=== PATIENT | male | born 1945 | race Caucasian/White ===

== ENCOUNTER 2016-05-25 13:57 | Inpatient (IN) | payer MEDICARE ==
[~2016-05-25] VITALS: Ht 170.2 cm; Wt 97.5 kg
[2016-05-25] VITALS (11 sets, daily range): BP systolic 101–133; BP diastolic 48–77; BMI 39.6
--- NOTE | ~2016-05-25 | HEMODYNAMI ---
PATIENT:OLIVIER HAYES MEDICAL RECORD: [id number] : 45 [id number] [id number] ADMISSION DATE: 05/25/16 Generatedon:05/29/201616:49 Patient name: OLIVIER HAYES Patient #: [id number] SSN: [id number] : 1945 Date of study: 05/29/2016 Page: Of Hemodynamic Procedure Report Patient Data Patient Demographics Procedure consent was obtained First Name: OLIVIER Gender: Male Last Name: FREDDY : 1945 [facility] Initial: ADILSON Age: 70 year(s) Patient #: [id number] Race: SSN: [id number] Additional ID: [id number] Contact details [address]: [address] [place] [address] [address] State: [place] City: [place] Zip code: [address] Admission Admission Data Admission Date: 05/25/2016 Admission Time: 13:57 Arrival Date: 05/29/2016 Arrival Time: 13:57 Admit Source: Other Insurance Payor: Medicare Room #: D.2308 Lab Results Lab Result Date: 05/29/2016 Lab Result Time: 0:00 Biochemistry Name Units Result Min Max BUN mg/dl 23 --(----)-* 7 18 Creatinine mg/dl 1.3 --(---*)-- 0.6 1.3 CBC Name Units Result Min Max Hemoglobin g/dl 11.9 *-(----)-- 13.5 17.5 Procedure Procedure Types Cath Procedure Diagnostic Procedure LHC LHC w/Coronaries w/Grafts PCI Procedure Coronary Stent Initial Procedure Description Procedure Date Procedure Date: 05/29/2016 Procedure Start Time: 15:47 Procedure End Time: 16:42 Procedure Staff Name Function Vishal Wilson MD Performing Physician Jodi Monson RT Scrub Shona Jeffrey RN Nurse Natty Neil RT Monitor Procedure Data Cath Procedure Fluoroscopy Diagnostic fluoroscopy Total fluoroscopy Time: time: 15.4 min 15.4 min Diagnostic fluoroscopy Total fluoroscopy dose: dose: 2380 mGy 2380 mGy Contrast Material Contrast Material Type Amount (ml) Isovue 300 220 Entry Location Entry Primary Successful Side Size Upsize Upsize Entry Closure Succes sful Closure Location (Fr) 1 (Fr) 2 (Fr) Remarks Device Remarks Radial Right 6 Fr artery Short Femoral Left 6 Fr Vascade artery Short Closure System Estimated blood loss: 10 ml Diagnostic catheters Device Type Used For End Catheter Placement Terumo 5Fr Warren 110cm Procedure catheter Cordis Infinity 5Fr AR Procedure MOD Catheter Cordis 5Fr Pigtail Abdominal Catheter (MP) aortogram with runoff Cordis Aqua 5Fr Guthrie Procedure 125cm catheter Cordis Infinity 5Fr AR Procedure MOD Catheter Cordis 5Fr 3DRC Catheter Procedure (MP) Procedure Complications No complications Procedure Medications Medication Administration Route Dosage Oxygen NC 2 l/min Lidocaine 2% added to field 20 Heparin Flush Bag added to field 2 bags (1000units/500ml NS) Versed I.V. 1 mg Fentanyl I.V. 50 mcg Fentanyl I.V. 50 mcg Radial Cocktail added to field 1 syringe (Verapomil 2mg/Nitro 400mcg/Heparin 1500units) Radial Cocktail I.A. 1 syringe (Verapomil 2mg/Nitro 400mcg/Heparin 1500units) Fentanyl I.V. 25 mcg Heparin Bolus I.V. 5000 units Cardene I.C. 300 mcg Integrilin (Bolus I.V. 10.2 ml 2mg/ml) Lasix I.V. 40 mg Hemodynamics Rest HGB: 11.9 (g/dl) Heart Rate: 93 (bpm) Pressure Samples Time Site Value (mmHg) Purpose Heart Use Rate(bpm) 16:12 LV 71/22,29 Snapshot 101 Snapshots Pre Cath Intra NCS Post Cath Vital Signs Time Heart Resp SPO2 NIBP (mmHg) Rhythm Pain Sedation Rate (ipm) (%) Status Level (bpm) 15:37:31 110 19 94 145/79(96) NSR w/ ST 0 (11) 10(A) Elevation , No pain 15:42:30 107 13 95 Measuring NSR w/ ST 0 (11) 10(A) Elevation , No pain 15:43:52 105 15 93 121/70(98) NSR w/ ST 0 (11) 10(A) Elevation , No pain 15:48:51 98 14 95 Measuring NSR w/ ST 0 (11) 10(A) Elevation , No pain 15:49:11 101 33 94 138/69(107) NSR w/ ST 0 (11) 10(A) Elevation , No pain 15:54:11 108 32 94 Measuring NSR w/ ST 0 (11) 10(A) Elevation , No pain 15:54:25 105 29 94 125/77(108) NSR w/ ST 0 (11) 10(A) Elevation , No pain 15:58:43 113 33 94 129/66(87) NSR w/ ST 0 (11) 10(A) Elevation , No pain 16:03:42 107 19 94 Measuring NSR w/ ST 0 (11) 10(A) Elevation , No pain 16:03:54 106 29 94 120/65(82) NSR w/ ST 0 (11) 10(A) Elevation , No pain 16:08:06 114 25 94 126/74(104) NSR w/ ST 0 (11) 10(A) Elevation , No pain 16:12:28 103 28 94 125/50(88) NSR w/ ST 0 (11) 10(A) Elevation , No pain 16:16:36 99 28 93 120/70(97) NSR w/ ST 0 (11) 10(A) Elevation , No pain 16:20:54 100 28 94 134/65(92) NSR w/ ST 0 (11) 10(A) Elevation , No pain 16:25:17 112 25 93 103/67(94) NSR w/ ST 0 (11) 10(A) Elevation , No pain 16:29:26 101 17 93 117/70(86) NSR w/ ST 0 (11) 10(A) Elevation , No pain 16:33:45 105 24 94 129/65(97) NSR w/ ST 0 (11) 10(A) Elevation , No pain 16:37:59 98 18 93 142/81(107) NSR w/ ST 0 (11) 10(A) Elevation , No pain 16:43:57 92 26 93 Disturbed NSR w/ ST 0 (11) 10(A) Elevation , No pain Medications Time Medication Route Dose Verified Delivered Reason Note s Effectiveness by by 15:40:06 Oxygen NC 2 l/min Vishal Shona Per physician Steve Jeffrey RN 15:40:34 Lidocaine 2% added 20ml Vishal Shona used for to vial Steve Jeffrey RN procedure field 15:40:48 Heparin Flush added 2 bags Vishal Shona used for Bag to Steve Jeffrey RN procedure (1000units/500ml field NS) 15:47:43 Versed I.V. 1 mg Vishal Shona for sedation Steve Jeffrey RN 15:47:53 Fentanyl I.V. 50 mcg Vishal Shona for sedation Steve Jeffrey RN 15:50:14 Fentanyl I.V. 50 mcg Vishal Shona for sedation Steve Jeffrey RN 16:05:56 Radial Cocktail added 1 Vishal Vishal used for (Verapomil to syringe Steve Wilson MD procedure 2mg/Nitro field 400mcg/Heparin 1500units) 16:07:41 Radial Cocktail I.A. 1 Vishal Vishal for (Verapomil syringe Steve Wilson MD vasodilation 2mg/Nitro 400mcg/Heparin 1500units) 16:16:40 Fentanyl I.V. 25 mcg Vishal Shona for sedation Steve Jeffrey RN 16:23:29 Heparin Bolus I.V. 5000 Vishal Shona for dose units Steve Jeffrey RN anticoagulation verified wt dr wilson 16:31:06 Cardene I.C. 300 mcg Vishal Vishal for Steve Wilson MD vasodilation 16:31:17 Integrilin I.V. 10.2 ml Vishal Shona for (Bolus 2mg/ml) Steve Jeffrey RN antiplatelet therapy 16:40:24 Lasix I.V. 40 mg Vishal Shona Per physician MARIAAP Steve Jeffrey RN Procedure Log Time Note 15:15:00 Jodi Monson RT(R) sent for patient. Start room use. 15::34 Informed consent obtained and on chart 15::34 Diagnostic Cath Status : Elective 15:24:07 Time tracking: Regular hours 15:24:11 Plan of Care:Hemodynamics will remain stable., Cardiac rhythm will remain stable., Comfort level will be maintained., Respiratory function will remain adequate., Patient/ family verbilizes understanding of procedure., Procedure tolerated without complication., Recovers from procedure without complications.. 15:24:33 Admit Source: Other 15:25:01 Arrival Date: 05/29/2016 1:57:00 PM 15:25:24 Insurance Payor : Medicare 15:26:33 Patient received from ICU to CCL 1 Alert and oriented. Tansferred to table in Supine position. 15:36:11 Warm blankets applied, and lyndsey hugger turned on for patient comfort. 15:36:12 Correct patient and procedure confirmed by team. 15:36:14 ECG and BP/O2 sat monitors applied to patient. 15:36:16 Vital chart was started 15:36:30 Baseline sample Acquired. 15:36:37 Baseline sample Acquired. 15:36:58 Rhythm: w/ ST elevation 15:37:02 Full Disclosure recording started 15:37:17 H&P Date Dictated: 05/29/2016 Within 30 days and on chart.. 15:37:22 Patient NPO since Midnight. 15:37:39 Snore? Yes 15:37:53 Airway obstruction? Yes COPD 15:37:58 Dentures? No ? 15:38:18 Patient pain scale 4/10 ?. 15:38:28 IV patent on arrival in left forearm with 0.9% NaCl at O. 15:39:29 Lab Result : BUN 23 mg/dl 15:39:29 Lab Result : Hemoglobin 11.9 g/dl 15:39:29 Lab Result : Creatinine 1.3 mg/dl 15:39:41 Lab results completed and on chart. 15:39:46 Right groin area was prepped with chlora-prep and draped in sterile fashion 15:39:48 Alarms reviewed by R. N. 15:39:49 Sharps counted by scrub and verified by R.N. 15:39:52 Physician paged 15:40:06 Oxygen 2 l/min NC was given by Shona Jeffrey RN; Per physician; 15:40:34 Lidocaine 2% 20ml vial added to field was given by Shona Jeffrey RN; used for procedure; 15:40:48 Heparin Flush Bag (1000units/500ml NS) 2 bags added to field was given by Shona Jeffrey RN; used for procedure; 15:41:55 Quick Combo opened to sterile field. 15:42:06 Use device set Femoral Dx 15:42:08 Acist Syringe opened to sterile field. 15:42:08 Bag Decanter opened to sterile field. 15:42:08 Cardinal Cath Pack opened to sterile field. 15:42:09 Terumo 5Fr [place] Sheath opened to sterile field. 15:42:09 St Donte 260cm J .035 wire opened to sterile field. 15:42:14 Acist Hand Control opened to sterile field. 15:42:15 Acist Manifold opened to sterile field. 15:42:15 Cordis Infinity 5Fr Multipack catheter opened to sterile field. 15:42:17 Tegaderm 4 x 4 opened to sterile field. 15:44:55 Baseline sample Acquired. 15:45:04 Baseline sample Acquired. 15:45:11 Baseline sample Acquired. 15:45:15 Baseline sample Acquired. 15:46:30 Zero performed for pressure channel P1 15:46:35 Zero performed for pressure channel P1 15:46:42 Zero performed for pressure channel P1 15:47:09 Physician arrived 15:47:10 --------ALL STOP TIME OUT------ 15:47:14 Final Timeout: patient, procedure, and site verified with staff and physician. All members of the team are in agreement. 15:47:16 Right groin site verified by team. 15:47:19 Physical assessment completed. ASA score P 2 - A patient with mild systemic disease as per Vishal Wilson MD. 15:47:23 Sedation plan: IV Moderate Sedation Versed, Fentanyl 15:47:29 Procedure started. 15:47:33 Local anesthetic to right femoral artery with Lidocaine 2% by Vishal Wilson MD.INITIAL ACCESS ONLY 15:47:43 Versed 1 mg I.V. was given by Shona Jeffrey RN; for sedation; 15:47:53 Fentanyl 50 mcg I.V. was given by Shona Jeffrey RN; for sedation; 15:50:14 Fentanyl 50 mcg I.V. was given by Shona Jeffrey RN; for sedation; 15:51:04 Left groin area was prepped with chlora-prep and draped in sterile fashion 15:51:14 Local anesthetic to left femerol artery with Lidocaine 2% by Vishal Wilson MD.ADDITIONAL ACCESS 15:56:46 right artery is a cross over graft 16:00:05 Is patient on blood thinner?Yes 16:00:09 ACC The patient was administered the following blood thiners within the last 24 hours: ACCPlavix 16:02:29 unable to access through iliiacs, going radial 16:03:17 Right Radial area was prepped with chlora-prep and draped in sterile fashion 16:05:03 Use device set Radial Dx 16:05:11 Terumo 6Fr Slender Glidesheath opened to sterile field. 16:05:36 Local anesthetic to right radial artery with Lidocaine 2% by Vishal Wilson MD.ADDITIONAL ACCESS 16:05:56 Radial Cocktail (Verapomil 2mg/Nitro 400mcg/Heparin 1500units) 1 syringe added to field was given by Vishal Wilson MD; used for procedure; 16:07:41 Radial Cocktail (Verapomil 2mg/Nitro 400mcg/Heparin 1500units) 1 syringe I.A. was given by Vishal Wilson MD; for vasodilation; 16:07:42 A 6 Fr Short sheath was inserted into the Right Radial artery 16:10:35 A Terumo 5Fr Warren 110cm catheter was advanced over the wire and used for Procedure. 16:12:20 LV gram done using TURNER 16:12:26 EF : 20 % 16:12:55 LCA angiography performed. 16:14:32 RCA angiography performed. 16:15:18 A Cordis Infinity 5Fr AR MOD Catheter was advanced over the wire and used for Procedure. 16:16:40 Fentanyl 25 mcg I.V. was given by Shona Jeffrey RN; for sedation; 16:17:00 Catheter removed. 16:18:11 Use device set Multipack Set 16:19:22 A Cordis 5Fr Pigtail Catheter (MP) was advanced over the wire and used for Abdominal aortogram with runoff. 16:21:31 A Cordis Aqua 5Fr Guthrie 125cm catheter was advanced over the wire and used for Procedure. 16:23:01 A 6 Fr Short sheath was inserted into the Left Femoral artery 16:23:14 Terumo 6Fr [place] Sheath opened to sterile field. 16:23:29 Heparin Bolus 5000 units I.V. was given by Shona Jeffrey RN; for anticoagulation; dose verified wt dr wilson 16:24:04 A Cordis Infinity 5Fr AR MOD Catheter was advanced over the wire and used for Procedure. 16:25:24 SVG to RCA occluded. 16:27:44 Catheter removed. 16:29:08 A Cordis 5Fr 3DRC Catheter (MP) was advanced over the wire and used for Procedure. 16:29:16 SVG to LAD occluded. 16:29:19 Catheter removed. 16:29:27 Medtronic Launcher 6Fr AR 2.0 SH guide catheter opened to sterile field. 16:29:31 Futura Acorp Whisper J 300cm 0.014 guide wire opened to sterile field. 16:29:39 Moda Operandi BasixCompak Inflation Kit opened to sterile field. 16:30:08 ACC PCI Site: pRCA has 80-90% stenosis. 16:30:16 6 Fr AR2 guide catheter was inserted over the wire 16:30:21 whisper wire advanced. 16:30:23 Wire advanced across lesion. 16:31:06 Cardene 300 mcg I.C. was given by Vishal Wilson MD; for vasodilation; 16:31:17 Integrilin (Bolus 2mg/ml) 10.2 ml I.V. was given by Shona Jeffrey RN; for antiplatelet therapy; 16:32:46 Inflation Number: 1 A Medtronic Resolute 3.5 X 15 stent was prepped and advanced across the Prox RCA. The stent was deployed at 21 JACQUELINE for 0:10 (min:sec). 16:33:17 Inflation number: 1 The stent balloon was then re-inflated across the Mid RCA to 17 JACQUELINE for 0:10 (min:sec). 16:33:34 Cordis Infinity 5Fr Multipack catheter opened to sterile field. 16:33:54 St Donte Femstop Arch Gold opened to sterile field. 16:33:55 Vascade 6/7 Fr Closure Device opened to sterile field. 16:35:27 Sheath removed intact; hemostasis achieved with Vascade Closure System to the Left Femoral artery. 16:35:51 Terumo TR Band Standard opened to sterile field. 16:36:02 Procedure ended.(Physican Out) 16:36:35 Fluoroscopy time 15.40 minutes. 16:36:44 Fluoroscopy dose: 2380 mGy 16:36:44 Flurop Dose total: 2380 16:36:59 Contrast amount:Isovue 300 220ml. 16:37:03 Sharps counted by scrub and verified by R.N. 16:37:11 TR band inflated with 10cc of air. 16:37:12 Insertion/operative site no bleeding no hematoma. 16:37:24 Post-op/insertion site Left Femoral artery dressed using a 4 x 4 and Tegaderm. 16:37:34 Post left femerol artery:stable 16:37:42 Femstop placed over the left femerol artery at 130 mmHg. Hemostasis achieved. 16:37:44 Post Procedure Pulses reassessed and unchanged 16:38:10 Post-procedure physical assessment completed. ASA score P 4 - A patient with severe systemic disease that is a constant threat to life as per Vishal Wilson MD. 16:38:15 Post procedure rhythm: unchanged. 16:38:19 Estimated blood loss: 10 ml 16:38:27 Patient needs reinforcement of post procedure teaching. 16:38:58 Procedure type changed to Cath procedure, Diagnostic procedure, LHC, LHC w/Coronaries w/Grafts, PCI procedure, Coronary Stent Initial 16:39:01 Procedure and supply charges have been captured, reviewed, submitted and are correct. 16:40:24 Lasix 40 mg I.V. was given by Shona Jeffrey RN; Per physician; KALPANA 16:42:08 Procedure Complication : No complications 16:42:14 Vital chart was stopped 16:42:16 See physician's report for complete and final results. 16:42:20 Report given to ICU. 16:42:24 Patient transfered to ICU with Bed. 16:42:27 Procedure ended. 16:42:27 Full Disclosure recording stopped 16:48:30 End room use (Document Last) Intervention Summary Intervention Notes Time ActionType Lesion and Equipment Action# Pressure Duration Attributes Used 16:32:46 Place stent Prox RCA Medtronic 1 21 00:10 Resolute 3.5 X 15 stent 16:33:17 Reinflate Mid RCA Medtronic 1 17 00:10 stent Resolute balloon 3.5 X 15 stent Device Usage Item Name Manufacture Quantity Catalog Hospital Part Current Minima l Lot# / Number Charge Number Stock Stock Serial# Code Quick Wholelife Companieso Zentric 1 08603-259610 282935 907941 192925 5 Acist Acist 2 27446 804549 651980 784176 20 Syringe Medical Systems Inc Bag Microtek 2 2002S 623368 48378 774404 5 Decanter Medical Inc. Cardinal Cardinal [address] 115864 92611 996598 5 Cath Pack Health Terumo 5Fr Terumo 1 TWO470 963544 734342 243885 [address] Don[address] St Donte 2 668189 336809 459032 962298 30 260cm J .035 wire Acist Hand Acist 2 88399 007170 491454 432194 5 Control Medical Systems Inc Acist Acist 2 00494 778780 340014 494605 5 Manifold Medical Systems Inc Cordis Cardinal 2 [id number] 927158 88329 132329 30 Infinity Health 5Fr Multipack catheter Tegaderm 4 3M 1 1626W 315188 317916 089786 5 x 4 Cordis 5Fr Cardinal 1 905761 5 JL 4.0 Health Catheter (MP) Cordis 5Fr Cardinal 2 074489 5 Pigtail Health Catheter (MP) Cordis 5Fr Cardinal 2 732825 5 3DRC Health Catheter (MP) IV Hospira 1 30661-96 965989 22041 537380 5 Extension Set Terumo 6Fr Terumo 1 [id number] 118054 965652 914298 40 Slender Glidesheath Terumo 5Fr Terumo 1 40-3313 091253 773599 788288 5 Warren 110cm catheter Cordis Cardinal 1 [id number] 984078 179072 615781 15 Infinity Health 5Fr AR MOD Catheter Cordis Aqua Cardinal 1 [id number] 264032 556510 833015 5 5Fr Health Guthrie 125cm catheter Terumo 6Fr Terumo 1 [id number] 991170 039461 661892 40 [place] Sheath Medtronic Medtronic 1 [id number] 371781 41083 901113 1 Launcher 6Fr AR 2.0 SH guide catheter Muñoz Muñoz 1 [id number] 960449 924829 450270 5 Whisper J Vascular 300cm 0.014 guide wire Merit Merit 1 BX1371 670772 735877 775433 15 [facility] Medical Inflation Kit Medtronic Medtronic 1 [id number] 322418 245040 1 [id number] Resolute 3.[address] Donte 1 [id number] 612483 107221 332660 5 Femstop Arch Gold Vascade 10/07 Cardiva 1 [id number] 584510 775458 500669 5 Fr Closure Medical, Device Inc. Terumo TR Terumo 1 [id number] 525087 919647 945933 40 Band Standard Signature Audit [place] Stage Time Signature Unsigned Intra-Procedure 05/29/2016 Natty Neil 4:49:09 PM RT(R) Signatures Monitor : Natty Neil Signature : RT Date : Time : [address] [place] [address]
--- NOTE | 2016-05-25 13:10 | NUR ---
Received patient via EMS. Pt attempted to self transfer to bed but required alot of help from both EMS and myself. Pt situated in bed, connected to CM- sinus linda, BP stable. o2 saturation stable on room air. Pt c/o pain and loss of feeling in left foot and usp up leg. pt also c/o pain behind knee and thigh. Pedal pulses not found via dopplar. Popliteal pulse not found via dopplar.femoral pulses not found via dopplar. right pedal pulse found via dopplar. Paged to inform of patients arrival via his request. See shift assessment flowsheet for all findings.
--- NOTE | 2016-05-25 13:40 | NUR ---
through to see patient. Deonte able to locate a very weak whisper of a femoral pulse via dopplar. Pt spoke to pt and extensively and informed him that patient likely needs an above knee amputation. Pt and verbalize understanding. New orders received.
[~2016-05-25 13:57] MED LIST: ADVIL PM CAPLET1 TAB PO; ADVIL200 MG PO; BANOPHEN25 M1 PO; BOUDREAUXS113 GM TP; CORDARONE200 MG PO; EFFER-K 25 MEQ25 MEQ PO; LASIX40 MG PO; NITROSTAT0.3 MG SL; PLAVIX75 MG PO; PRAVACHOL40 MG PO; PRINIVIL10 MG PO; SALINE FLUSH10 ML IV; VANCOMYCIN H1 G/VIA1 IV; VANCOMYCIN1 GM/2501 IV; ZYLOPRIM300 MG PO
[2016-05-25 14:29] LABS: HEMATOCRIT 44.3 % (42.0-54.0); HEMOGLOBIN 14.3 g/dL (13.5-17.5); MCH 33.3 pg (26.0-34.0); MCHC 32.3 g/dL (31.0-37.0); MCV 103.3 fL (80.0-100.0); MEAN PLATELET VOLUME 11.5 fL (7.4-10.4); RBC 4.29 10x6/uL (4.20-6.10); WBC 9.3 10x3/uL (4.8-10.8)
[2016-05-25 14:53] LABS: CREATININE - SERUM 2.9 mg/dL (0.6-1.3)
--- NOTE | 2016-05-25 15:00 | NUR ---
Deonte called, he spoke with Jamaal and will not perform CT due to kidney function. Will reassess tomorrow morning. New orders recieved.
[2016-05-25 15:03] LABS: INR 1.1 (0.85-1.17); PROTIME 14.1 SECONDS (11.6-15.0)
--- NOTE | 2016-05-25 15:10 | NUR ---
through, informed her of consult. She will be by to see patient tomorrow as patient has had all things addressed so far. Call her if needed though.
--- NOTE | 2016-05-25 15:30 | NUR ---
through to see patient. POC discussed.
--- NOTE | 2016-05-25 16:40 | NUR ---
discussed home medication list with me. He reordered home meds.
--- NOTE | 2016-05-25 17:06 | NUR ---
Informed of consult.
--- NOTE | 2016-05-25 17:30 | NUR ---
Patient history completed with patients .
--- NOTE | 2016-05-25 17:34 | NUR ---
here to see patient. Currently discussing POC and patient history.
--- NOTE | 2016-05-25 18:25 | NUR ---
Paged to inform of consult. He has not returned page, will pass onto car shifter.
--- NOTE | 2016-05-25 18:44 | NUR ---
Pts o2 saturation in the 80s, placed on 2 L NC and informed Monet with RT. Pt repositioned as well.
--- NOTE | 2016-05-25 19:30 | NUR ---
REPORT RECEIVED AND CARE ASSUMED. INITIAL SHIFT ASSESSMENT COMPLETED. SEE FLOWSHEET. PT AAOX4 SPEECH CLEAR. STATES HIS PAIN IS MANAGEABLE AND MUCH IMPROVED WITH THE SHIP CARPENTER. DEMONSTRATED SOME RELUNCTANCE IN USING THE SHIP CARPENTER STATING HE DIDNT WANT TO BE PERCEIVED A DRUG SEEKER. ENCOURAGED PT TO UTILIZE THE MEDICATION PROVIDED IT WAS APPROPRIATE FOR HIS CONDITION AND HE WAS NOT BEING JUDGED, DISCUSSED THE BENEFITS OF GAINING GOOD PAIN MANAGEMENT VS LETTING IT GET OUT OF CONTROL. PT VERBALIZED COMPREHENSION OF THIS TEACHING. PT NOTED TO BE ON O2 AT 2LN/C TOLERATING WELL. RIGHT HAND 20G PIV WITH HEPARIN AND NEXT PTT TO BE DONE AT 2200 WITH ORDERS TO FOLLOW HEPARIN PROTOCOL ON CHART. LEFT PIV 20 WITH NS AND DILAUDID SHIP CARPENTER INFUSING. ALL FLUIDS PER PUMP ALL LINES DATED AND LABELED. SWAB CAPS IN USE. IV SITES WITHOUT REDNESS, EDEMA OR TENDERNESS. RIGHT PIV RESECURED WITH TAPE. PT WITH NO PULSES IN LEFT FOOT OR POPLITEAL. DO HEAR FAINT WHOSH WHISPERY SOUND IN LEFT FEMORAL WITH DOPPLER. PT WITH VISIBLE NITROPASTE TO LEFT FOOT AND IT IS UNCOVERED AND OPEN TO AIR. TEMPERATURE DIFFERENCES IN LEGS NOTEABLE. LEFT FOOT MUCH COOLER THAN RIGHT WITH EQUAL WARMTH NOT FELT UNTIL IN LOWER 1/3 OF THIGH. THIS IS NOT A NEW FINDING PER REPORT RECEIVED AND PHYSICIANS ARE WELL AWARE OF PULSESNESS PER NOTES AND PT REPORT. PT IS BEING MONITORED PER STANDARD ICU PROTOCOL WITH ALL ALARMS SET AND VERIFIED. BED IN LOW POSITION CALL LIGHT IN REACH
--- NOTE | 2016-05-25 21:00 | NUR ---
HS MEDS GIVEN AFTER PT TEACHING DONE. PT FAIRLY WELL INFORMED ABOUT HIS HOME MEDS. NO SWALLOWING DIFFICULTY NOTED. HS SNACK PROVIDED OF HIS CHOICE OF MILD AND CRACKERS. PT ATE 100%
--- NOTE | 2016-05-25 21:10 | NUR ---
VISITORS AT BEDSIDE PT AAOX4 AND ABLE TO UPDATE FAMILY. FAMILY IS KNOWLEDGEABLE ABOUT PT'S CONDITION AND PROGNOSIS
--- NOTE | 2016-05-25 21:30 | NUR ---
CODE WORD ESTABLISHED AND PT SHARED WITH . GIVEN CONTACT INFORMATION FOR UNIT
--- NOTE | 2016-05-25 23:00 | NUR ---
SHIFT REASSESSMENT COMPLETED. NOTE DEFINITE AUDIBLE LEFT FEMORAL PULSE ALTHOUGH CONTINUES TO BE FAINT. NO OTHER CHANGES NOTED. PT HAS BEEN SLEEPING OFF AND ON. STANDING AT BEDSIDE TO VOID AND WITH LESS DIFFICULTY WITH URINARY HESITANCY THAN UPON INITAL SHIFT ASSESSMENT.
[2016-05-26] VITALS (23 sets, daily range): BP systolic 100–126; BP diastolic 39–73; Ht 170.2 cm; Wt 97.5 kg
--- NOTE | 2016-05-26 | NUR ---
PT NOW NPO WITH SIGN PLACED AT DOORWAY STATING THUS. PT AWARE OF NPO STATUS IN ANTICIPATION OF POSSIBLE SURGERY TOMORROW. CONTINUE TO PROVIDE SUPPORT
--- NOTE | 2016-05-26 01:00 | NUR ---
PT SLEEPING WELL TONIGHT. RESP REG AND NONLABORED
--- NOTE | 2016-05-26 03:00 | NUR ---
SHIFT REASSESSMENT COMPLETED. LEFT FEMORAL PULSES MORE EASILY DOPPLERED AND MORE AUDIBLE WITH DOPPLER. LEFT POPLITEAL AND LEFT FOOT REMAIN PULSELESS. PT STATES HE HAS GOOD PAIN CONTROL AND HAS NO REQUESTS
--- NOTE | 2016-05-26 05:30 | NUR ---
LAB AT BEDSIDE FOR TIMED PTT DRAW AND AM LAB. DRAWN FROM LEFT ARM. (RIGHT HAND IS THE HEPARIN INFUSION SITE)
[2016-05-26 06:27] LABS: ALBUMIN 3.6 g/dL (3.4-5.0); ALKALINE PHOSPHATASE 72 U/L (46-116); ALT (SGPT) 32 U/L (10-68); BILIRUBIN - TOTAL 0.31 mg/dL (0.2-1.3); CALC OSMOLALITY 298 mosm/kg (275-300); CALCIUM 8.8 mg/dL (8.5-10.1); CARBON DIOXIDE 30.3 mmol/L (21.0-32.0); CHLORIDE - SERUM 104 mmol/L (98-107); CKMB 29.9 U/L (0.0-3.6); CREATININE - SERUM 2.5 mg/dL (0.6-1.3); GLUCOSE 101 mg/dL (74-106); LDH 181 U/L (85-227); POTASSIUM - SERUM 4.2 mmol/L (3.5-5.1); PROTEIN - SERUM 7.2 g/dL (6.4-8.2); SODIUM 144 mmol/L (136-145); UREA NITROGEN 45 mg/dL (7-18); eGFR NON AFRICAN AMERICAN 27 mL/min (90-120)
--- NOTE | 2016-05-26 06:30 | NUR ---
PT GIVEN 3,000 UNIT BOLUS AND INCREASE OF HEPARIN TO 13 PER PROTOCOL. PT UP TO BSC FOR BM. TRANSFERED WITH ASSIST OF 2. CONTINENT OF STOOL. COMPLETE BATH GIVEN WITH LINENS CHANGED. CHLORHEXIDINE WIPES USED. NOTE A SMALL AMOUNT OF DRIED BLOOD TO LEFT GROIN. CLOSE INSPECTION SHOWS A POOR HEALING SITE OF PREVIOUS INSERTION SITE PT STATES WAS OVER A YEAR AGO AND REQUIRED A WOUND VAC. PT STATES IT BLEEDS AND OOZES FREQENTLY. AREA CLEANED WITH SOAP AND WATER AND PATTED DRY.
--- NOTE | 2016-05-26 09:00 | NUR ---
DR RIVERA HERE ASSESSING LEG.
--- NOTE | 2016-05-26 09:30 | NUR ---
DR CID HERE. DR WALKER CONSULTED PER DR RIVERA/PALAK TO AMPUTATE LEFT LEG.
--- NOTE | 2016-05-26 11:00 | NUR ---
DR WALKER HERE TALKING TO FAMILY.
--- NOTE | 2016-05-26 11:10 | NUR ---
Is the patient Alert and Oriented? Yes 0 * How many steps to enter\exit or inside your home? RAMP 0 * PCP DR. BEAR IN [place] 0 * Pharmacy [facility] IN [place] 0 * Preadmission Environment Home with Family 0 * ADLs Independent 0 * Equipment Walker Wheelchair 0 * Other Equipment PATIENT STATES HE HAS A MANUAL W/C AND A POWER CHAIR. HE STATES HE HAS A LIFT FOR HIS CHAIR ON HIS TRUCK. 0 * List name and contact numbers for known caregivers / representatives who currently or will assist patient after discharge: SPOUSE: PIYUSH (C) [phone] (H) [phone] 0 * Community resources currently utilized None 0 * Additional services required to return to the preadmission environment? No 0 * Can the patient safely return to the preadmission environment? Yes 0 * Has this patient been hospitalized within the prior 30 days at any hospital? No PATIENT IS AWAKE AND ALERT. HE STATES HE LIVES AT HOME WITH HIS SPOUSE, PIYUSH. SHE WILL BE AVAILABLE TO DRIVE HIM HOME AT DISCHARGE. PATIENT STATES HIS PCP IS DR. BEAR IN [place]. HE GETS HIS MEDICATION FROM [facility] IN [place]. HE HAS A WALKER, CANE, MANUAL WHEELCHAIR, AND A POWER WHEELCHAIR. PATIENT STATES HE ALSO HAS A WHEELCHAIR LIFT ON HIS TRUCK. PATIENT HAD HOME HEALTH IN THE PAST WITH [facility] 2 YRS AGO. PTIENT STATES THERE IS A RAMP TO ENTER HIS HOME. PATIENT DENIES ANY DISCHARGE NEEDS AT THIS TIME.
--- NOTE | 2016-05-26 13:20 | NUR ---
TO OR VIA BED. CONSENTS SIGNED AND ON CHART. AT BEDSIDE.
[2016-05-26 14:27] LABS: ERYTHROCYTE SEDIMENTATION RATE 25 mm/hr (0-20)
--- NOTE | 2016-05-26 15:30 | NUR ---
BACK FROM OR. LEFT LEG AMPUTATED. SLEEPING NO DISTRESS NOTED.
--- NOTE | 2016-05-26 17:00 | NUR ---
SLEEPING NO DISTRESS NOTED SR UP X 3. FAMILY AT BEDSIDE.
--- NOTE | 2016-05-26 19:30 | NUR ---
REPORT RECEIVED CARE ASSUMED. INITIAL SHIFT ASSESSMENT COMPLETED. PT WITH SLIGHT CONFUSION NOTED BUT ABLE TO REDIRECT AND REORIENTATE WITHOUT DIFFICULTY. DENIES PAIN AT THIS TIME. PT WITH 2LO2 PER N/C PIV TO RIGHT AND LEFT HAND WITH RIGHT HAND S/L FLUSHED WELL. LEFT HAND WITH IVF PER FLOWSHEET. BOTH 20G. LEFT LEG WITH AKA WITH ORIGINAL SURGICAL COMPRESSION DRESSING IN PLACE. NO DRAINAGE FROM THIS SITE. PT IS BEING MONITORED PER STANDARD ICU PROTOCOL WITH ALL ALARMS SET. BED IN LOW POSITION. PT IS TOLERATING ICE CHIPS WITH NO NAUSEA.
--- NOTE | 2016-05-26 20:00 | NUR ---
PT VOIDED 125 CC OF CLEAR YELLOW URINE. U/S AT BEDSIDE TO DO U/S OF KIDNEYS, REPORTS 762 CC OF URINE STILL IN BLADDER.
--- NOTE | 2016-05-26 20:15 | NUR ---
18F YADAV INSERTED WITHOUT DIFFICULTY WITH STERILE TECHNIQUE. IMMEDIATE RETURN OF URINE NOTED. CLAMPED AFTER 300 FOR 15 MINUTES. TOTAL OF 1000 CC OF URINE NOTED WITH INSERTION. SPECIMEN SENT TO LAB FOR ANALYSIS. STATLOCK USED AND YADAV DRAINAGE BAG AND CHART DATED AND LABELED.
--- NOTE | 2016-05-26 21:00 | NUR ---
AND VISITORS AT BEDSIDE. PT ABLE TO VISIT WITH COHERENCE. ONLY MILD CONFUSION NOTED. UPDATE AND QUESTIONS ANSWERED BY BOTH STAFF AND PT.
[2016-05-26 21:05] LABS: CREATININE - URINE 64.7 mg/dL (30-125); PRO/CRE RATIO URINE 0.3 mg/g; PROTEIN - URINE 18.9 mg/dL (0.0-11.9)
--- NOTE | 2016-05-26 21:30 | NUR ---
HS MEDS GIVEN WITHOUT ANY SWALLOWING DIFFICULTY NOTED. PT ABLE TO TOLERATE SMALL SIPS OF WATER. DENIES NAUSEA.
--- NOTE | 2016-05-26 23:00 | NUR ---
SHIFT REASSESSMENT COMPLETED. NO SIGNIFICANT CHANGES
[2016-05-27] VITALS (12 sets, daily range): BP systolic 102–142; BP diastolic 39–65
--- NOTE | 2016-05-27 01:00 | NUR ---
PT SLEEPING INTERMITTENTLY. RESTLESS DENIES PAIN. TOELRATING ICE CHIPS AND CLEAR LIQUIDS WELL DENIES NAUSEA
--- NOTE | 2016-05-27 03:00 | NUR ---
SHIFT REASSESSMENT COMPLETED. NO SIGN CHANGE. PT HAS SLEPT THE PAST 2 HOURS RES REG AND NONLABORED
--- NOTE | 2016-05-27 04:00 | NUR ---
PT HAS DISLODGED HIS STUMP DRESSING. COLBY NOTED TO BE INTACT. CLEANED WITH IODINE SWAAB STICKS AND XEROFORN PETROLATUM DRESSING X 3 WITH ABD PADS X 2 SECURED WITH NETTING AND GOGO WRAP REAPPLIED. PT TOLERATED WELL.
--- NOTE | 2016-05-27 05:52 | NUR ---
CALL RECEIVED FROM , PASSWORD VERIFIED. UPDATE GIVEN AND QUESTIONS ANSWERED
--- NOTE | 2016-05-27 06:18 | NUR ---
RIGHT HAND MORE EDEMATOUS. CONCERN ABOUT IV SITE. FLUSHES EASILY BUT NO BLOOD RETURN. NEW IV STARTED 22G TO LEFT HAND X 1 ATTEMPT. IV RELOCATED TO LEFT HAND.
--- NOTE | 2016-05-27 07:00 | NUR ---
ASSESSMENT PER FLOWSHEET. PT VOICES NO CO AT TIME. SR UP X 2. CALL LIGHT WITHIN REACH. L AKA NOTED DRSG CDI.
[2016-05-27 07:19] LABS: APPEARANCE CLEAR (CLEAR); BILIRUBIN NEGATIVE (NEGATIVE); COLOR YELLOW (YELLOW); GLUCOSE NEGATIVE (NEGATIVE); KETONE NEGATIVE (NEGATIVE); LEUKOCYTE ESTERASE NEGATIVE (NEGATIVE); NITRITE NEGATIVE (NEGATIVE); PROTEIN NEGATIVE (NEGATIVE); SPECIFIC GRAVITY 1.015 (1.005-1.020); UROBILINOGEN NORMAL (NORMAL)
--- NOTE | 2016-05-27 09:00 | NUR ---
FAMILY AT BEDSIDE. UPDATE GIVEN. OK TO TRANSFER TO FLOOR. AWAITING BED.
--- NOTE | 2016-05-27 09:13 | CN ---
PATIENT NAME:OLIVIER BARNES MEDICAL RECORD: [id number] : 45 LOCATION:[id number] ADMIT DATE: 05/25/16 ACCOUNT: [id number] CONSULTING PHYSICIAN: PAULINO ESCOBEDO MD REFERRING PHYSICIAN: CECILIA RIVERA MD DATE OF CONSULTATION: 05/25/2016 CONSULT REQUESTING PHYSICIAN: Dr. Cecilia Rivera. REASON FOR CONSULTATION: Preop evaluation, possible COPD. HISTORY OF PRESENT ILLNESS: Mr. Barnes is a 70-year-old gentleman who was taken to the [facility] with numbness and cold left lower extremity. The patient was transferred over here under the care of Dr. Rivera and Dr. Hinton for possible amputation and surgery in the morning. According to the patient, he has more than 50-year history of smoking more than 1 pack per day. There is no documented COPD. He is on oxygen. He is not using any inhalers. He does not hear himself wheezing. There is cough without any significant sputum production. REVIEW OF SYSTEMS: CONSTITUTIONAL: No fever and chill. HEENT: No sinus congestion. RESPIRATORY: As in history of present illness. CARDIOVASCULAR: No chest pain. GASTROINTESTINAL: Negative. GENITOURINARY: Negative. MUSCULOSKELETAL: He has a cold left lower extremity. Poor pulses. PAST MEDICAL HISTORY: 1. Coronary artery disease. 2. Gout. 3. Hypertension. 4. Severe peripheral vascular disease. 5. Chronic kidney disease. 6. Tobacco dependence syndrome. PAST SURGICAL HISTORY: 1. He has coronary artery bypass graft in the past. 2. He has AAA repair and fem-fem bypass by Dr. Hinton in the past. ALLERGIES: HE IS ALLERGIC TO BETA SHLOMO AND PENICILLIN. PRESENT MEDICATIONS: On [employer] is reviewed. PERSONAL AND SOCIAL HISTORY: The patient is . He lives with his . He is still smoking more than a pack a day. FAMILY HISTORY: Noncontributory. PHYSICAL EXAMINATION: GENERAL: Now, the patient is lying comfortably in bed. He is not in acute respiratory distress. VITAL SIGNS: The blood pressure is 125/77, pulse is 64, respirations 12, temperature 97.3, SpO2 97% on room air. CONSULT REPORT [id number] OLIVIER BARNES HEENT: Conjunctivae are pink. Sclerae nonicteric. NECK: Supple, no JVD. CHEST: The chest excursion is minimal on both sides. There is no wheeze, no rales. HEART: Rate and rhythm is regular, normal sound, no murmur. ABDOMEN: Soft. Bowel sounds present. No hepatosplenomegaly. RECTAL: Deferred. EXTREMITIES: There is poor peripheral pulses on probable left lower extremity, it is cold to touch. LABORATORY DATA: CBC: WBC 9.3, hemoglobin 14.3, hematocrit 44.3, the platelet count 135. Chemistry: Sodium is 148, BUN is 48, creatinine is 2.9. IMPRESSION: 1. Chronic obstructive pulmonary disease without exacerbation. 2. Tobacco dependence syndrome. 3. Severe peripheral arterial disease. 4. Coronary artery disease. 5. Hypertension. 6. History of gout. 7. Chronic kidney disease. 8. History of hyperlipidemia. RECOMMENDATION: 1. The patient was counseled to quit smoking. 2. I will check the ABG, start him on albuterol/ipratropium nebulizer. We will follow closely perioperatively with Dr. Rivera and Dr. Hinton. Dr. Rivera, once again thanks for involving me in the care of Mr. Barnes. TRANSINT:[id number] Voice Confirmation ID: [id number] DOCUMENT ID: [id number] PAULINO ESCOBEDO MD at 0913 CC: CECILIA RIVERA MD [id number] DICTATION DATE: 05/25/16 1745 JOINT SETTER: 05/25/162000 ADM IN [facility] [address] [id number]
[2016-05-27 10:09] LABS: ANION GAP 10.9 mmol/L (8-16); CALCIUM 8.6 mg/dL (8.5-10.1); CARBON DIOXIDE 26.8 mmol/L (21.0-32.0); CREATININE - SERUM 1.4 mg/dL (0.6-1.3); POTASSIUM - SERUM 4.7 mmol/L (3.5-5.1)
[2016-05-27 10:26] LABS: BASOPHILS 0.1 % (0.0-2.0); EOSINOPHILS 0 % (0-7); HEMOGLOBIN 11.6 g/dL (13.5-17.5); IMMATURE GRANULOCYTES 0.3 % (0-5); LYMPHOCYTES 5.4 % (15-50); MCH 32.6 pg (26.0-34.0); MCHC 30.5 g/dL (31.0-37.0); MEAN PLATELET VOLUME 11.2 fL (7.4-10.4); MONOCYTES 5.6 % (2-11); NEUTROPHILS 88.6 % (40-80); PLATELET COUNT 116 10x3/uL (130-400); RBC 3.56 10x6/uL (4.20-6.10); RDW 14.4 % (11.5-14.5); WBC 11.3 10x3/uL (4.8-10.8)
[2016-05-27 10:34] LABS: MCV 106.7 fL (80.0-100.0)
--- NOTE | 2016-05-27 12:00 | NUR ---
EATING LUNCH. VOICES NO CO AT TIME. FAMILY AT BEDSIDE. UPDATE GIVEN.
--- NOTE | 2016-05-27 14:00 | NUR ---
BATH GIVEN LINENS CHANGED. VOICES NO CO AT TIME. SR UP X 3. CALL LIGHT WITHIN REACH.
--- NOTE | 2016-05-27 16:01 | NUR ---
FAMILY AT BEDSIDE VISITING WITH PATIENT. VOICES NO CO AT TIME. PT MOVES SELF IN BED. PILLOW PLACED TO L SIDE.
--- NOTE | 2016-05-27 16:44 | NUR ---
Rehab Note- Prescreen order received. Attempted to varify patient's benefits, patient does not have [employer]. Investigated to find the patient has [employer], will have to have PreAuth prior to IRF stay. Needs OT & PT eval. Thank you for this referral! Daisha Zavala RN Clinical Liaison, Rehab [facility]/[place]
--- NOTE | 2016-05-27 19:00 | NUR ---
REPORT RECIEVED, INITIAL ASSESSMENT COMPLETE, PLEASE SEE FLOW SHEETS FOR DETAILS. BED LOW AND LOCKED, CALL LIGHT IN REACH. PT STATES PAIN IS PRESENT BUT TOLERABLE IN LEFT LEG. DENIES ANY NEEDS AT THIS TIME. ASKED FOR LIGHTS DOWN. VSS, WILL CONTINUE TO MONITOR.
--- NOTE | 2016-05-27 21:00 | NUR ---
SLEEPING, BED LOW AND LOCKED, CALL LIGHT IN REACH, BED ALARM ON. NO S&S OF DISTRESS NOTED. VSS, WILL CONTINUE TO MONITOR.
--- NOTE | 2016-05-27 23:00 | NUR ---
PT RESTING, NO S&S OF ACUTE DISTRESS NOTED. BED LOW AND LOCKED, CALL LIGHT IN REACH. DENIES PAIN/NEEDS AT THIS TIME. VSS, WILL CONTINUE TO MONITOR.
--- NOTE | 2016-05-27 23:52 | NUR ---
REPOSITIONED PT IN BED. SHOWING SOME FORGETFULNESS, ASKED WHY HIS LEFT FOOT WAS NOT THERE. REMINDED HIM THAT IT WAS AMPUTATED AND HE ACKNOWLEDGED THIS, STATING HE WAS SORRY. INFORMED HIM THERE WAS NOTHING TO BE SORRY FOR, THAT IT WAS STILL NEW TO HIM AND WOULD TAKE SOME GETTING USED TO. DENIES ANY PAIN/NEEDS AT THIS TIME. VSS, WILL CONTINUE TO MONITOR.
--- NOTE | 2016-05-28 00:23 | NUR ---
CALLED REPORT TO [facility]A ON MED SURG. WILL GATHER BELONGINGS AND TRANSPORT PT.
--- NOTE | 2016-05-28 00:52 | NUR ---
RECIEVED TO RM 2203 FROM ICU. AWAKE,ALERT ORIENTED. IV NS INFUISNG TO LEFT HAND WITHOUT EDEMA OR REDNESS NOTED.DILAUDID REVENUE CYCLE MANAGER IN USE FOR PAIN CONTROL.GOGO WRAP DRSG TO LEFT AKA INTACT WITHOUT DRAINAGE NOTED..YADAV PATENT DRAINING CL YELLOW URINE. CL IN REACH,
--- NOTE | 2016-05-28 01:00 | NUR ---
TRANSPORTED PT TO NEW ROOM VIA BED, AND MOVED TO OTHER BED WITH 4 PERSON ASSIST. DRESSING FROM SURGICAL SITE CAME OFF AND LAWRENCE WAS REPLACED AND WRAPPED. LEFT IN CARE OF YA.
--- NOTE | 2016-05-28 02:30 | NUR ---
AWAKE ALERT. NO DISTRESS NOTED. CL IN REACH.
--- NOTE | 2016-05-28 05:37 | NUR ---
AWAKE, CONFUSION NOTED TO SURROUNDINGS. HAS REMOVED DRSG TO LEFT STUMP MULTIPLE TIMES. INSTRUCTED TO LEAVE DRSG ON. STATES UNDERSTANDING THEN REMOVES IT AGAIN. CL IN REACH.
[2016-05-28 05:57] LABS: BASOPHILS 0.1 % (0.0-2.0); EOSINOPHILS 0.3 % (0-7); HEMATOCRIT 39.9 % (42.0-54.0); HEMOGLOBIN 12.3 g/dL (13.5-17.5); IMMATURE GRANULOCYTES 0.3 % (0-5); MCH 32.8 pg (26.0-34.0); MCHC 30.8 g/dL (31.0-37.0); MCV 106.4 fL (80.0-100.0); MEAN PLATELET VOLUME 11.4 fL (7.4-10.4); MONOCYTES 6.1 % (2-11); NEUTROPHILS 87.2 % (40-80); PLATELET COUNT 120 10x3/uL (130-400); RBC 3.75 10x6/uL (4.20-6.10); RDW 14.4 % (11.5-14.5)
[2016-05-28 06:02] LABS: WBC 15.8 10x3/uL (4.8-10.8)
[2016-05-28 06:41] LABS: ANION GAP 17.2 mmol/L (8-16); CALCIUM 8.8 mg/dL (8.5-10.1); CARBON DIOXIDE 24.8 mmol/L (21.0-32.0); CREATININE - SERUM 1.3 mg/dL (0.6-1.3); PHOSPHOROUS 2.1 mg/dL (2.5-4.9)
--- NOTE | 2016-05-28 07:19 | NUR ---
0620 PATIENT GETTING OUT OF BED TO GO TO BATHROOM UNASSISTED. SAT DOWN IN FLOOR. ASSISTED BACK TO BED. BED ALARM APPLIED FOR SAFTEY..HAS REMOVED DRSG FROM LEFT AKA. COLBY INTACT.
--- NOTE | 2016-05-28 07:20 | NUR ---
LEFT STUMP VISUALIZED AND NO DEHISENCE PRESENT. DRESSING REPLACED AND STUMP WRAPPED WITH GOGO. 20G IV SITED TO PT'S RIGHT AC X1 ATTEMPT. PT TOLERATED WELL W/O COMPLAINTS. BRISK BLOOD RETURN PRESENT. PT RE-ORIENTED TO PLACE, TIME AND SITUATION. SRX3, BED IN LOWEST POSITION WITH WHEELS LOCKED. TREVA MAT ALARM IN USE FOR FALL PRECAUTIONS. DOOR OPEN, CALL LIGHT IN REACH, WILL CONTINUE WITH PLAN OF CARE.
[2016-05-28 07:59] VITALS: BP 113/54
--- NOTE | 2016-05-28 08:25 | OP ---
PATIENT NAME: OLIVIER HAYES MEDICAL RECORD: [id number] :45 LOCATION:D.MS [id number] ADMISSION DATE:05/25/16 SURGEON: MACY RODRIGUEZ MD DATE OF OPERATION: 05/26/2016 PREOPERATIVE DIAGNOSIS: Left lower extremity ischemia. POSTOPERATIVE DIAGNOSIS: Left lower extremity ischemia. PROCEDURE PERFORMED: Left above-knee amputation. SURGEON: Darnell Rodriguez MD ANESTHESIA: General. CONDITION: He tolerated the procedure well, was transferred to the recovery room in stable condition at termination of the procedure. INDICATIONS: This is a 70-year-old gentleman with a 60+ pack year history of smoking. He has presented with an ischemic foot, his leg has been cool. There are no palpable pulses distally. It is like the coolness in his legs is palpable to above his knee. He has been seen previously by Dr. Hinton and Dr. Clemons, both of which felt that there is no means about which his leg can be revascularized. Therefore, I was consulted for amputation. I discussed with him and his family. They understood and wished to proceed. OPERATIVE REPORT: The patient was taken to the operating room in supine position. General anesthesia was obtained. The left leg was confirmed to be the correct leg, following which it was prepped and draped in the normal fashion. After this was accomplished, I angelica out the incisions making a flap medially to bring the adductors over. Once this was accomplished, I then proceed to make a skin cut, taking this down and cutting the femur and identifying the neurovascular bundle behind the femur. This was clipped and then cauterized and as well as tied. There was not a significant amount of bleeding noted anywhere. I then proceeded to bring up the fascial closure, bring the fascia of the adductor over towards the lateral side of the IT band area sewing this down, so that the adductors would be across the femur. I then closed with 2-0 Vicryl and karley, this overall closed very well. The biggest concern for me was that he did not have a significant amount of blood visible. Therefore, I irrigated him between these steps, following which it was closed. He was awakened and transferred back to the recovery room in stable condition. TRANSINT:[id number] Voice Confirmation ID: [id number] DOCUMENT ID: [id number] MACY RODRIGUEZ MD at 0825 CC: [id number] DICTATION DATE: 05/26/16 1433 GIS SCIENTIST: 05/26/16 1459 ADM IN [place] [id number] [place] [id number]
--- NOTE | 2016-05-28 08:28 | NUR ---
PT SITTING ON SIDE OF BED. PT HAS SELF REMOVED HIS IV AND BLOOD IS ALL OVER PT, BEDDING, AND FLOOR. REMOVED YADAV CATHETER STAT LOCK, BUT YADAV CATHETER REMAINS PATENT AND DRAINING TO GRAVITY. PT REMOVED DRESSING TO LEFT AKA. PT REMAINS CONFUSED TO TIME, PLACE AND SITUATION. TREVA MAT ALARM REMAINS TO BED. CAPRICE ROMERO AND ROSEY RN AT BEDSIDE CLEANING PT UP AND RE-SITING IV.
--- NOTE | 2016-05-28 08:46 | NUR ---
PT PULLED OUT IV AGAIN AND DRESSNIG OFF STUMP. VERY DISORIENTED AT PRESENT. KNOWS HE IS IN HOSPITAL BUT NOT DATE OR TIME. CALL PLACED TO X 3 NUMBERS WITH NO ANSWER. BED ALARM ON
--- NOTE | 2016-05-28 09:10 | NUR ---
SCHEDULED MEDICATIONS GIVEN TO PT AND TAKEN WITHOUT DIFFICULTY. FAMILY AT BEDSIDE. DENIES NEEDS. YADAV CARE PROVIDED WITH YADAV CARE WIPES. WILL CONTINUE WITH PLAN OF CARE.
--- NOTE | 2016-05-28 10:30 | NUR ---
NUTRITION MONITORING & EVAL CHART REVIEWED, PT VISIT. NO INTAKE BREAKFAST. WILL CONTINUE TO PROVIDE DIET, MONITOR PO INTAKE. RD FOLLOWING
--- NOTE | 2016-05-28 11:45 | NUR ---
PHYSICAL THERAPY AND OCCUPATIONAL THERAPY IN THE ROOM AND WORKING WITH THE PATIENT. TREVA MAT ALARM IN USE FOR FALL PRECAUTIONS AND SR X3. CALL LIGHT IN REACH, WILL CONTINUE TO MONITOR PT.
[2016-05-28 12:25] VITALS: BP 149/62
--- NOTE | 2016-05-28 13:42 | NUR ---
REMAINS AT BEDSIDE. WILL CONTINUE [facility] PLAN OF CARE.
--- NOTE | 2016-05-28 15:30 | NUR ---
FAMILY VISITING WITH PT AT THIS TIME. PT SELF POSITIONS HIMSELF IN BED FOR COMFORT. OXYGEN ON 2L VIA NC. DRESSING REMAINS C/D/I TO LEFT STUMP. REMAINS CONFUSED TO PLACE, TIME AND SITUATION. YADAV PATENT AND DRAINING TO GRAVITY. SRX3, TREVA MAT ALARM ON AND IN USE, BED LOCKED AND IN LOWEST POSITION. CALL LIGHT IN 'S REACH, WILL CONTINUE WITH PLAN OF CARE.
[2016-05-28 15:38] VITALS: BP 131/44
[2016-05-28 19:10] LABS: SPE - A/G RATIO 1.2 (0.7-1.7); SPE - ALBUMIN 3.6 g/dL (2.9-4.4); SPE - ALPHA-1 GLOBULIN 0.3 g/dL (0.0-0.4); SPE - ALPHA-2 GLOBULIN 0.9 g/dL (0.4-1.0); SPE - BETA GLOBULIN 0.9 g/dL (0.7-1.3); SPE - GAMMA GLOBULIN 0.8 g/dL (0.4-1.8); SPE - M-SPIKE Not Observed g/dL (Not Observed); SPE - TOTAL PROTEIN 6.5 g/dL (6.0-8.5)
--- NOTE | 2016-05-28 20:00 | NUR ---
PATIENT SITTING IN BED WITH AT BEDSIDE. HOB 45 DEGREES. RR LABORED. O2 @ 2L VIA NC BUT PATIENT WILL NOT KEEP IT ON. HE IS AWAKE AND ALERT BUT VERY RESTLESS AND ANXIOUS. STATES PAIN IS A 10/10 BUT CANNOT STATE WHERE. CHANGED DRESSING TO LEFT STUMP. YADAV DRAINING TO GRAVITY, STATLOCK REPLACED. URINE EULALIO. SCD'S TO RLE. TREVA ALARM ON. SRX3. DOOR OPEN.
[2016-05-28 22:07] LABS: UPE RAND - ALBUMIN 60.7 % (()); UPE RAND - ALPHA 1 GLOBULIN 2.5 % (()); UPE RAND - ALPHA 2 GLOBULIN 7.8 % (()); UPE RAND - BETA GLOBULIN 9.5 % (()); UPE RAND - GAMMA GLOBULIN 19.6 % (())
[2016-05-29] VITALS (16 sets, daily range): BP systolic 107–161; BP diastolic 45–95
[2016-05-29 05:41] LABS: BASOPHILS 0.1 % (0.0-2.0); EOSINOPHILS 0 % (0-7); HEMATOCRIT 37.9 % (42.0-54.0); HEMOGLOBIN 11.9 g/dL (13.5-17.5); IMMATURE GRANULOCYTES 0.3 % (0-5); LYMPHOCYTES 4.8 % (15-50); MCH 32.9 pg (26.0-34.0); MCHC 31.4 g/dL (31.0-37.0); MCV 104.7 fL (80.0-100.0); MEAN PLATELET VOLUME 11.9 fL (7.4-10.4); MONOCYTES 6.6 % (2-11); NEUTROPHILS 88.2 % (40-80); PLATELET COUNT 117 10x3/uL (130-400); RBC 3.62 10x6/uL (4.20-6.10); RDW 14.4 % (11.5-14.5); WBC 15.1 10x3/uL (4.8-10.8)
[2016-05-29 06:09] LABS: ANION GAP 18.4 mmol/L (8-16); CALCIUM 9.1 mg/dL (8.5-10.1); CARBON DIOXIDE 25.9 mmol/L (21.0-32.0); CREATININE - SERUM 1.3 mg/dL (0.6-1.3)
[2016-05-29 06:15] LABS: POTASSIUM - SERUM 3.3 mmol/L (3.5-5.1)
--- NOTE | 2016-05-29 08:00 | NUR ---
LYING ON BACK AT THIS TIME. MEPILEX APPLIED TO BUTTOCK AND BILTERAL ELBOWS FOR SKIN PROTECTION. REPOSITIONED AND PULLED UP IN BED. POSITIONED ON LEFT SIDE AND HOB AT 45 DEGREES. AT BEDSIDE, CALL LIGHT IN REACH. TREVA MAT ALARM IN USE FOR FALL PRECAUTIONS, WILL CONTINUE WITH PLAN OF CARE.
--- NOTE | 2016-05-29 10:23 | NUR ---
SCHEDULED MEDICATIONS ADMINISTERED AT THIS TIME. YADAV CATHETER CARE PERFORMED AT THIS TIME. ASSESSMENT PERFORMED PER FLOWSHEET. VITAL SIGNS REMAIN STABLE. RESPIRATORY RATE 24 WITH OXYGEN SATURATION 96% ON 52L VIA NC. RESPIRATIONS SHALLOW AND LABORED. NO IV ACCESS AT THIS TIME. AT BEDSIDE. NO C/O PAIN OR CHEST PAIN AT THIS TIME. CALL LIGHT IN REACH, SRX3, TREVA MAT ALARM IN USE FOR FALL PRECAUTIONS. BED IN LOWEST POSITION AND LOCKED. WILL CONTINUE WITH PLAN OF CARE.
[2016-05-29] MEDS ORDERED: NEURONTIN 300300 MG PO (10:25)
--- NOTE | 2016-05-29 12:20 | NUR ---
VITAL SIGNS OBTAINED AND BP 148/64, PULSE 109 IRREGULAR, TEMP 101.6 TEMPORALLY, RESPIRATIONS 31 AND OXYGEN SATURATION 96% ON 2L VIA NC. PT IS SOB AND DISPLAYING DYSPNEA AT REST. 22G IV SITED TO PT'S LEFT HAND X1 ATTEMPT PER ROSEY HAMILTON RN. BREATH SOUNDS DIMINISHED WITH EXPIRATORY WHEEZES THROUGH ALL LOBES BILATERALLY. PT C/O CHEST DISCOMFORT WHEN ASKED. YADAV CATHETER PATENT AND DRAINING EULALIO URINE TO GRAVITY. 500ML OF URINE IN COLLECTION BAG AT THIS TIME. CARDIAC ENZYMES, EKG AND LACTIC ACID ORDERED STAT. GROIN PACKED WITH ICE PACKS AND BLANKETS REMOVED FROM PT. TEMPERATURE DECREASED IN ROOM TO MAKE IT COOLER. PT VERBALIZED CHEST PAIN. NURSING STAFF REMAINS IN ROOM.
--- NOTE | 2016-05-29 12:45 | NUR ---
BP 125/61, HEART RATE 118 AND IRREGULAR. OXYGEN REMAIN ON 2L VIA NC. PT STATES YES, WHEN HE IS ASKED IF HE IS HAVING CHEST PAIN. EKG BEING OBTAINED AT THIS TIME.
[2016-05-29 13:41] LABS: CKMB 23.1 U/L (0.0-3.6); CREATINE KINASE 24899 UL (21-232)
[2016-05-29 13:45] LABS: TROPONIN-I 10.323 ng/mL (0.000-0.060)
--- NOTE | 2016-05-29 14:05 | NUR ---
TRANSFERRED TO ICU VIA BED. REPORT CALLED TO CAPRICE ANGLIN.
--- NOTE | 2016-05-29 14:10 | NUR ---
PT ARRIVED TO ROOM FROM FLOOR. BP 149/83 HR 104. O2 ON 2L SAT 97%. RESPIRATIONS 36 TEMP 99.4 TEMPORAL. PT HAS ICE PACKS TO GROIN TO HELP BRING DOWN FEVER. HAS DRESSING TO LEFT AKA STUMP. DRESSING IS CLEAN AT THIS TIME. HAS PIV TO LEFT HAND THAT IS WRAPPED AND SECURED. HAS BRUISING ON LEFT ARM. EXCORIATION ON BUTTOCKS WITH MEPILEX DRESSING INTACT. HAS DRESSINGS AT ELBOWS TO PREVENT ABRASION/BLEEDING. PT IS CONFUSED, BUT COOPERATIVE.
--- NOTE | 2016-05-29 14:19 | NUR ---
CONSENT FORMS SIGNED AND WITNESSED BY PT'S AT THIS TIME.
[2016-05-29 14:29] LABS: BASOPHILS 0.1 % (0.0-2.0); EOSINOPHILS 0 % (0-7); HEMATOCRIT 38.6 % (42.0-54.0); HEMOGLOBIN 12.1 g/dL (13.5-17.5); IMMATURE GRANULOCYTES 0.2 % (0-5); LYMPHOCYTES 5.5 % (15-50); MCH 32.8 pg (26.0-34.0); MCHC 31.3 g/dL (31.0-37.0); MCV 104.6 fL (80.0-100.0); MEAN PLATELET VOLUME 11.6 fL (7.4-10.4); MONOCYTES 6.2 % (2-11); PLATELET COUNT 121 10x3/uL (130-400); RBC 3.69 10x6/uL (4.20-6.10); RDW 14.4 % (11.5-14.5); WBC 15.3 10x3/uL (4.8-10.8)
[2016-05-29 14:48] LABS: CALCIUM 8.4 mg/dL (8.5-10.1); CARBON DIOXIDE 27.2 mmol/L (21.0-32.0); CREATININE - SERUM 1.3 mg/dL (0.6-1.3); POTASSIUM - SERUM 3.2 mmol/L (3.5-5.1)
[2016-05-29 14:50] LABS: APPEARANCE CLEAR (CLEAR); BILIRUBIN NEGATIVE (NEGATIVE); COLOR YELLOW (YELLOW); GLUCOSE NEGATIVE (NEGATIVE); KETONE SMALL mg/dL (NEGATIVE); NITRITE NEGATIVE (NEGATIVE); PROTEIN TRACE mg/dL (NEGATIVE); SPECIFIC GRAVITY 1.015 (1.005-1.020); UROBILINOGEN NORMAL (NORMAL)
[2016-05-29 14:52] LABS: BACTERIA FEW /hpf (NONE SEEN); LEUKOCYTE ESTERASE TRACE (NEGATIVE); WHITE CELLS - URINE 0-5 /hpf (0-5)
--- NOTE | 2016-05-29 15:25 | NUR ---
PT OFF UNIT TO FIRE FIGHTER CRASH FIRE AND RESCUE
--- NOTE | 2016-05-29 16:55 | NUR ---
PT RETURNED TO ROOM. HAS TR BAND AT RIGHT WRIST. GAUZE AT RIGHT GROIN AND FEMSTOP AT LEFT GROIN. NO BLEEDING NOTED. NO HEMATOMAS. PT VERY SHORT OF BREATH. PLACED ON 4L NC. COUGHING. CRACKLES AND WHEEZES. MONITORING EQUIPMENT PLACED.
--- NOTE | 2016-05-29 17:18 | NUR ---
CALLED DR WALKER ORDERED. LET HIM KNOW NICOLE HAD ASKED FOR RECONSULT ON THE AKA, POSSIBLE RHABDO. SAYS HE SAW PT THIS MORNING. SITE LOOKED GOOD. ASKED THAT WE CONTACT AMY AND SEE IF HE WILL COME SEE PT.
--- NOTE | 2016-05-29 17:23 | NUR ---
SPOKE WITH DR REYES. FEELS ADDITIONAL SURGERY NOT AN OPTION RIGHT NOW. ASKS FOR RENAL TO BE CONSULTED FOR BICARB FLUIDS.
--- NOTE | 2016-05-29 17:27 | NUR ---
DR AMARILIS BYRD
--- NOTE | 2016-05-29 18:23 | NUR ---
FAMILY AT BEDSIDE. PT SUPINE. NO EVIDENCE OF BLEEDING AT GROIN SITES OR RIGHT WRIST.
--- NOTE | 2016-05-29 19:00 | NUR ---
1900: Pt LOC x1 not oriented to person or place. Verbal reorientation successfull at this time. Pt denies pain at this time. Pt breathing 023LNC RR20x with SPO2 98%. Pt's lungs are clear to auscultation. Pt S1S2 irregular with frequent PACs and PVCs seen on CM. Pt SBP 120's at this time.
--- NOTE | 2016-05-29 19:15 | NUR ---
1914: Pt changed to ICU white bed and new linens placed.
--- NOTE | 2016-05-29 20:30 | NUR ---
2030: Left AKA dressing intact. Skin proximal to dressing darker in color. Left groin fem stop in place and site free from bleeding, oozing, or swelling.
--- NOTE | 2016-05-29 21:00 | NUR ---
2100: Pt family here. Discussed pt code status at length. Pt is to remain a full code at this time.
[2016-05-30] VITALS (28 sets, daily range): BP systolic 86–147; BP diastolic 56–92
--- NOTE | 2016-05-30 | NUR ---
0000: Pt continues disoriented. Pt restless. Attempted to reposition for comfort. Pt remains with Fem Stop full deflated to left groin and TR band fully deflated to right wrist. No s/s of bleedin, oozing, or swelling. Pt remains CP free and Sinus on CM with PVCs and PACs.
--- NOTE | 2016-05-30 01:15 | NUR ---
0115: Right wrist TR band removed and pressure dressing applied with 4x4s and tape. Area free from bleeding, oozing, or swelling at this time. Right radial pulse is present. Left Femoral Fem Stop removed and pressure dressing applied with 4x4's and "stretch" tape. Site free from bleeding, oozing, or swelling. LAKA noted and no pulse obtainable distally.
--- NOTE | 2016-05-30 01:45 | NUR ---
0145: Right wrist and left groin free from s/s of hematoma, bleeding, oozing, or swelling. Pt Fio2 decreased to 2L via NC at this time to keep SPO2 >92%.
--- NOTE | 2016-05-30 02:50 | NUR ---
0250: Pt remains with decreased LOC and verbal reorientation only briefly successfull. No change in pt PTCA entry sites. No s/s of bleeding or hematoma. Pt remains SR with frequent PACs and PVCs seen on CM 90-100bpm HR. Pt continues with LF63-15t with SPO2 98% on 022LNC.
--- NOTE | 2016-05-30 03:50 | NUR ---
0350: Pt oriented to person and time, but not place. Pt requests "drink of water" after multiple explanations and education. Continue to provide moistened green swabs for oral care, but pt requests water. Pt states "I'm not having anymore surgery." Pt does not recall PTCA and again states he will not have surgery.
[2016-05-30 05:04] LABS: BASOPHILS 0.1 % (0.0-2.0); EOSINOPHILS 0 % (0-7); HEMATOCRIT 38.9 % (42.0-54.0); HEMOGLOBIN 12.2 g/dL (13.5-17.5); IMMATURE GRANULOCYTES 0.2 % (0-5); LYMPHOCYTES 5.8 % (15-50); MCH 32.9 pg (26.0-34.0); MCHC 31.4 g/dL (31.0-37.0); MCV 104.9 fL (80.0-100.0); MEAN PLATELET VOLUME 11.9 fL (7.4-10.4); MONOCYTES 6.9 % (2-11); PLATELET COUNT 113 10x3/uL (130-400); RBC 3.71 10x6/uL (4.20-6.10); RDW 14.4 % (11.5-14.5); WBC 14.7 10x3/uL (4.8-10.8)
--- NOTE | 2016-05-30 05:30 | NUR ---
0530: Pt remains oriented to person, place, and time. Pt yelling out for water frequently. Attempted to explain NPO status, but pt states; "i am not having any more surgery." Provided moist oral swabs. Pt accepts, but quickly returns to yelling for water. Pt denies chest pain, nausea, or vomitting at this time and continues SR with frequent PACs and PVCs seen on CM. Pt does not recall PTCA and states; "i did not have a heart attack."
[2016-05-30 05:42] LABS: ALBUMIN 3.1 g/dL (3.4-5.0); ALKALINE PHOSPHATASE 57 U/L (46-116); ALT (SGPT) 75 U/L (10-68); BILIRUBIN - TOTAL 1.66 mg/dL (0.2-1.3); CALC OSMOLALITY 310 mosm/kg (275-300); CALCIUM 8.7 mg/dL (8.5-10.1); CARBON DIOXIDE 30.4 mmol/L (21.0-32.0); CHLORIDE - SERUM 110 mmol/L (98-107); CKMB 15.8 U/L (0.0-3.6); CREATININE - SERUM 1.3 mg/dL (0.6-1.3); GLUCOSE 131 mg/dL (74-106); MAGNESIUM - SERUM 2.2 mg/dL (1.8-2.4); PHOSPHOROUS 2.6 mg/dL (2.5-4.9); POTASSIUM - SERUM 3.1 mmol/L (3.5-5.1); PROTEIN - SERUM 7.1 g/dL (6.4-8.2); SODIUM 152 mmol/L (136-145); UREA NITROGEN 31 mg/dL (7-18); eGFR NON AFRICAN AMERICAN 58 mL/min (90-120)
[2016-05-30 05:59] LABS: CREATINE KINASE 18226 UL (21-232); TROPONIN-I 14.472 ng/mL (0.000-0.060)
--- NOTE | 2016-05-30 06:00 | NUR ---
0600: Dr. Burton called and updated with pt c/o at this time. New orders rec'd. Provided pt with water at this time. Pt states; "I am going home." Pt is oriented to person, place, and time. Attempted to explain PTCA and AMI to pt. Pt states; "ah that didn't happen." Pt refuses to believe he had an LA and states that he has not been confused at all. Pt requests family to come "now."
--- NOTE | 2016-05-30 06:15 | NUR ---
0615: RT in room and pt refuses Tx. Attempted to explain importance of Tx, but pt continues to refuse. Pt remains oriented. Tx not given.
--- NOTE | 2016-05-30 06:20 | NUR ---
0620: Pt in Afib 140-150 HR at this time. Pt denies any SOB, Nausea, CP etc.. at this time. Dr. Wilson called and new orders rec'd and noted.
--- NOTE | 2016-05-30 07:00 | NUR ---
0700: Left message with daughter about pt request to come to hospital. contacted earlier and is on the way as well.
--- NOTE | 2016-05-30 18:30 | NUR ---
0715-RECIEVED AWAKE AND [id number]-[id number] GOING HOME NOW-NEED [id number]-[id number] TO DRINK-L AKA AMPUTATION DRG DISLODGED-CLIPS INTACT-DR LEVI AT BEDSIDE-ORDERS RECIEVED AND NOTED 0730-REMAINS ST 150 WITH FREQUENT PAC AND PVC-DR THOMSON MADE AWRE-ORDER RECIEVED -NOTED BETAPACE-LISTED ALLERGY-PT STATED MADE MY HEART GO TO SLOW-CLARIFIED BY DR THOMSON TO GIVE -NOT [id number]-SEBE PT ON MONITOR-PT AGREED TO TAKE-L GROIN SOFT-R WRIST-FIRM WITH HEMATOMA NOTED 0830- AT BEDSIDE-ABLE TO CALM PT AT THIS TIME-CLR LIQUIDS TAKEN-N/S DECREASED TO 10ML/H-PT CONTINUES TO ASK TO TAKE HIM HOME AT THIS TME 1030-ORTHO SERVICES AT BEDSIDE-SEE NOTE 1330-DR ESCOBEDO AT [facility]--PT CALM AND COOPERATIVE AT THIS TIME-IV CHANGED TO D5W AT 50ML/H-AGREED TO REPOSITION TO R SIDE 1500-FAMLY AT BEDSIDE-PT APPEARS CALMER 1700-PT ASLEEP TRAY PLACED WITHIN REACH-HR 68 SR 1815-RT RX IN PROGRESS-KBRN
--- NOTE | 2016-05-30 19:00 | NUR ---
1900: Pt resting HOB 30 degrees with eyes open, pupils CHAPIS+ bilat. Pt oriented to person, place, and time. Pt denies pain, tingling, numbness at this time. Pt states he is uncomfortable and would like to turn over though. Assited pt with turn and pink pad changed. Pt able to provide assitance in turning. Pt breathing 022LNC with RR 24x with SPO2 97% Lungs clear bilat with auscultation. Pt has occasional non productive cough. S1S2 regular SR 70's on CM at this time. Left hand PIV intact with NS TKVO. Pt right wrist and left groin with pressure drsgs intact w/o s/s of hematoma or bleeding. Left AKA dressing removed and site remains with incision distally that is C/D/I and no bleeding. Area proximal to amputation with darker discoloration/bruising? ABD soft NT BS hypoactive x4. Torre to gravity with >30 cc/hr dark yellow UOP. SR up x2, call light in reach, and bed alarm on.
--- NOTE | 2016-05-30 20:50 | NUR ---
2049: Pt grunting in room and saying "oh my" to himself. Asked pt if he would like pain medication. Pt states; "yes" Pt indicates his hip is hurting and describes as "raw feeling." Rx provided as per EMAR. Pt has no difficulty with swallow.
--- NOTE | 2016-05-30 21:50 | NUR ---
2150: Pt c/o SOB and SPO2 92%. Lungs with crackles heard throughout with auscultation. Encouraged DBC. Dr. Noyola notified and Lasix 40mg IVPx1 admin at this time.
--- NOTE | 2016-05-30 22:50 | NUR ---
2250: Pt breathing less labored at this time wiht [id number] with SPO2 97% with 024LNC. Pt repositioned for comofort. Pt c/o "butt" hurting.
[2016-05-31] VITALS (23 sets, daily range): BP systolic 93–144; BP diastolic 54–85
--- NOTE | 2016-05-31 00:40 | NUR ---
0040: Pt resting with eyes closed at this time. No moaning. Allowed pt to rest at this time. Pt remains with RR20x on 024LNC with SPO2 94%. Remains SR 70's on CM with SBP 110's. No change in pt IVF/UOP.
--- NOTE | 2016-05-31 02:15 | NUR ---
0215: Pt attempted to have BM; "only passed gas." Pt left stump dressing loose. Kerlix applied around stump loosley. Pt c/o pain. Rx admin as per orders. Pt repositioned for comfort. During reposition coccyx dressgin removed. Area red in color. Right lower buttocks with small approx 1-2mm skin tear with no bleeding noted. Area covered with Butt cream.
--- NOTE | 2016-05-31 04:35 | NUR ---
0435: Told by staff that pt requests "industrial service technician." Pt sitting up in bed with eyes open. Pt is oriented to person and place, but not time. Verbal reorientation successfull. Pt states he would "like god to be walking around him." Pt not feeling well and is in pain. Assited pt to reposition and discussed distress at length. Pt states he would like to see a dividend deposit voucher clerk today, but did not know it was 0430AM. Pt requested coffee and assistance with TV. Assited pt and provided coffee as requested. Pt with no c/o after comforting.
[2016-05-31 05:16] LABS: BASOPHILS 0.1 % (0.0-2.0); EOSINOPHILS 0.3 % (0-7); HEMATOCRIT 37.6 % (42.0-54.0); HEMOGLOBIN 11.8 g/dL (13.5-17.5); IMMATURE GRANULOCYTES 0.3 % (0-5); LYMPHOCYTES 7.7 % (15-50); MCH 33.1 pg (26.0-34.0); MCHC 31.4 g/dL (31.0-37.0); MCV 105.6 fL (80.0-100.0); MEAN PLATELET VOLUME 12.3 fL (7.4-10.4); MONOCYTES 6.8 % (2-11); NEUTROPHILS 84.8 % (40-80); PLATELET COUNT 126 10x3/uL (130-400); RBC 3.56 10x6/uL (4.20-6.10); RDW 14.4 % (11.5-14.5); WBC 15.4 10x3/uL (4.8-10.8)
[2016-05-31 05:54] LABS: ANION GAP 11.3 mmol/L (8-16); CALCIUM 8.4 mg/dL (8.5-10.1); CARBON DIOXIDE 30.5 mmol/L (21.0-32.0); CREATININE - SERUM 1.5 mg/dL (0.6-1.3); POTASSIUM - SERUM 3.8 mmol/L (3.5-5.1)
--- NOTE | 2016-05-31 06:00 | NUR ---
0600: Pt requested to reposition. Assisted with reposition. Pt conversive and oriented at this time. Pt requests pain pill. Pt smiling and thanked staff for assitance.
--- NOTE | 2016-05-31 06:50 | NUR ---
0650: Notified HSV for request for plant tender today.
--- NOTE | 2016-05-31 18:55 | NUR ---
0815-DR REYES AT [facility]-ORDERED OVERLAY-PT ADAMENTLY REFUSED STATED HE WOULD SLEEP ON THE FLOOR BEFORE HE WOULD SLEEP ON ANOTHER AIR MATTRESS-STATED FEELS LIKE THEY SWALLOW HIM UP-STATED DIFFICULT TO BREATH WHEN ON IT --PT AGREEED TO FREQUENTLY REPOSITION SELF 0900-RENAL SERVICES AT BEDSIDE-D5W REMAINS AT 10ML/H-PT AGREES TO ORAL FLUID RESTRICTION-STATES STILL DIFFICULT TO BREATH 0930-DR LEVI AT BEDSIDE -VERBALLY ORDERED TRANSFER TO FLOOR-SAME PLACED IN ORDERS 0830- CALLED UNIT-INFORMED OF PT WISH TO SPEAK WITH GROUND WATER TECHNICIAN- STATED WILL ARRANGE- 1130-DR ESCOBEDO IN UNIT-O2 SAT 96%-PT STATES HEAVINESS TO BREATH-REMAINS ON 2 L-DIRECTED TO TAKE RX RT ORDERED-PT STATED WILL 1330- AT [facility] WITH GROUND WATER TECHNICIAN-PT STATES "FEELS BETTER WITH INCREASED PAIN MEDICINE-CONT HEAVINESS TO BREATH-NOTED SR 58 ON MONITOR 1500-REMAINS IN ICU FOR CLOSER CARDIAC AND O2 MONITORING 1730-ABG DRAWN FOR FURTHER ASSESSMENT-ALL PARAMETERS WITH [id number] AT BEDSIDE-INFORMED OF PT DIFFICULTY WITH BREATHING-ABG RESULTS-FAMILY AGREEABLE TO LEAVE PT IN ICU OVERNIGHT-AND REQUESTED TO BE CALLED IF TRANSFER REQUIRED FOR CENSUS 1830-PT AGREED TO RESP RX EASILY
--- NOTE | 2016-05-31 19:20 | NUR ---
REPORT REC'D AND CARE ASSUMED, REC'D PT RESTING EYE CLOSED RESP EVEN AND UNLABORED, O2 @ 3LITERS VIA NC, PT AWAKENS EASILY, ORIENTED X 3, LEFT HAND PIV WITH D5W @ 10CC/HR, DRIED BLOOD AT IV INSERTION SITE, PT DENIES PAIN, NO EDEMA NOTED, CM-SR, PT DENIES PAIN STATES " I FEEL PRETTY GOOD RIGHT NOW", DRSG TO LEFT GROIN CDI, LEFT AKA NOTED, DRSG TO LEFT AKA REMOVED BY PT, PT STATES " I WAS LETTING IT AIR", EXPLAINED TO PT THE DRSG HAD TO REMAIN ON, YADAV PATENT DRAINING EULALIO COLORED URINE, RIGHT SCD REMOVED LEG AND SKIN ASSESSED TO BE CDI, SCD LEFT OFF FOR BREAK, PT STATES " I AM GOING TO NEED MY SHEETS CHANGED THEY ARE WET", SM WET SPOT NOTED TO LEFT SIDE, SR UP X 2, CALL LIGHT IN REACH.
--- NOTE | 2016-05-31 20:30 | NUR ---
LEFT STUMP REDRESSED AND COVERED WITH KERLIX, COMPLETE BATH AND LINEN CHANGE PROVIDED, LEFT BUTTOCKS WITH 1-2MM SKIN TEAR OPEN TO AIR NO DRAINAGE, KIM'S BUTT PASTE APPLIED AND PT REPOSITIONED UP IN BED AND ONTO LEFT SIDE SUPPORTED WITH PILLOWS, PT TOLERATED BATH WITHOUT DIFFICULTY, SR UP, CALL LIGHT IN REACH.
--- NOTE | 2016-05-31 21:00 | NUR ---
EVENING MEDS GIVEN, PT REFUSED MOM, STATES " I DON'T NEED THAT RIGHT NOW".
--- NOTE | 2016-05-31 21:25 | NUR ---
FAMILY AT BS, UPDATE GIVEN AND QUESTIONS ANSWERED, PT'S LEFT PT'S CELL PHONE AND PHONE VETERINARY ANATOMIST PLUGGED IN AT BS.
--- NOTE | 2016-05-31 23:30 | NUR ---
REASSESSMENT COMPELTED, PT REMAINS ORIENTED X 4, PT COMPLAINS OF BEING HOT, BLANKET REMOVED FOR COMFORT, EXCESS PILLOWS REMOVED PER REQUEST.
[2016-06-01] VITALS (10 sets, daily range): BP systolic 121–168; BP diastolic 50–82
--- NOTE | 2016-06-01 00:58 | NUR ---
PT REQUESTING PAIN PILL, RATING PAIN "6-7", PT ONLY WANTS ONE OF TWO AT THIS TIME, BP STABLE, DENIES FURTHER NEEDS.
--- NOTE | 2016-06-01 02:00 | NUR ---
PT RESTING ON LEFT SIDE EYES CLOSED, RESP EVEN AND UNLABORED, VSS.
--- NOTE | 2016-06-01 04:45 | NUR ---
PT AWAKE MOANING WHEN ASKED WHAT WAS WRONG STATES "NOTHING I AM DOING GOOD REALLY", WHEN ASKED IF HURTING STATES " A LITTLE", REFUSES PAIN PILL AT THIS TIME, ICE WATER PROVIDED ON REQUEST, DENIES FURTHER NEEDS.
[2016-06-01 04:48] LABS: BASOPHILS 0.1 % (0.0-2.0); EOSINOPHILS 0.8 % (0-7); HEMATOCRIT 36.3 % (42.0-54.0); HEMOGLOBIN 11.3 g/dL (13.5-17.5); IMMATURE GRANULOCYTES 0.4 % (0-5); LYMPHOCYTES 7.6 % (15-50); MCH 32.5 pg (26.0-34.0); MCHC 31.1 g/dL (31.0-37.0); MCV 104.3 fL (80.0-100.0); MEAN PLATELET VOLUME 12.2 fL (7.4-10.4); MONOCYTES 6.4 % (2-11); NEUTROPHILS 84.7 % (40-80); PLATELET COUNT 114 10x3/uL (130-400); RBC 3.48 10x6/uL (4.20-6.10); WBC 11.7 10x3/uL (4.8-10.8)
[2016-06-01 04:59] LABS: ANION GAP 9.9 mmol/L (8-16); CALCIUM 8.3 mg/dL (8.5-10.1); CARBON DIOXIDE 32.9 mmol/L (21.0-32.0); CREATININE - SERUM 1.4 mg/dL (0.6-1.3); POTASSIUM - SERUM 3.8 mmol/L (3.5-5.1)
--- NOTE | 2016-06-01 07:30 | NUR ---
REPORT RECIEVED FROM STRATEGY PLANNING CONSULTANT NURSE. PT RESTING IN BED QUIETLY. VSS AT THIS TIME. RECIEVING O2 AT 3LNC. DRESSING TO LEFT LE C/D/I. F/C PATENT DRAINING DARK. CONCENTRATED URINE. PT HAS ROOM TO MED2. WILL TRANSFER BY BED AFTER PT EATS BREAKFAST. CALL LIGHT IN REACH. BED IN LOW POSITION. DENIES NEEDS AT THIS TIME.
--- NOTE | 2016-06-01 08:00 | NUR ---
PT EATING BREAKFAST. MORNING MEDICATIONS TAKEN WITHOUT DIFFICULTY.
--- NOTE | 2016-06-01 10:25 | NUR ---
Nutrition follow-up: Diet: low sodium Labs reviewed Pt s/p left AKA Wt: 235# Will provide food choices and honor food preferences within diet restrictions. RDN following.
--- NOTE | 2016-06-01 14:16 | OP ---
PATIENT NAME: OLIVIER HAYES MEDICAL RECORD: [id number] :45 LOCATION:D.M2 D.2138 ADMISSION DATE:05/25/16 SURGEON: PAUL THOMSON MD DATE OF OPERATION: 05/29/2016 PROCEDURES: 1. PTCA stent vein graft to RCA. 2. Left heart catheterization. 3. Selective coronary angiography. 4. Vein graft angiography. 5. KATHLEEN angiography. INDICATIONS: Non-Q-wave myocardial infarction, coronary artery disease and unstable angina. PROCEDURE IN DETAIL: After informed consent was obtained and after detailed explanation of risks, benefits as well as alternative therapies, patient elected to proceed with angiogram and angioplasty. The left femoral area was prepped and draped in normal sterile fashion. The left femoral artery was cannulated via modified Seldinger technique with placement of 6-Sami sheath. All catheters exchanged through this sheath. FINDINGS: The left ventriculogram was performed in standard 30-degree TURNER view reveals global hypokinesis throughout all segments. Overall ejection fraction is 20%. SELECTIVE CORONARY ANGIOGRAPHY: 1. Left main showed no significant angiographic disease. 2. Left anterior descending is totally occluded in the proximal vessel. 3. KATHLEEN to the LAD is widely patent. 4. Left circumflex is totally occluded. 5. Vein graft to the circumflex is totally occluded. 6. Right coronary is totally occluded. 7. Vein graft to the right coronary is widely patent; however, there is an 80+ percent stenosis at the ostium. PTCA STENT OF THE VEIN GRAFT TO THE RIGHT CORONARY: The stent used was 3.5 x 18 mm Resolute taken to 21 atmospheres. Result was 0% residual stenosis. OVERALL IMPRESSION: Successful percutaneous transluminal coronary angioplasty stent of the vein graft to the RCA going from 80+ percent initial stenosis to 0% residual stenosis. TRANSINT:[id number] Voice Confirmation ID: [id number] DOCUMENT ID: [id number] PAUL THOMSON MD at 1416 CC: [id number] DICTATION DATE: 05/29/16 1645 URBAN PLANNER: 05/30/16 0041 ADM IN [id number] [place] [address]
--- NOTE | 2016-06-01 14:16 | CN ---
PATIENT NAME:OLIVIER BARNES MEDICAL RECORD: [id number] : 45 LOCATION:D.M2 D.2138 ADMIT DATE: 05/25/16 ACCOUNT: [id number] CONSULTING PHYSICIAN: PAUL THOMSON MD REFERRING PHYSICIAN: CECILIA RIVERA MD DATE OF CONSULTATION: 05/29/2016 Consultation note ADMITTING DIAGNOSES: 1. Acute coronary syndrome, non-Q-wave myocardial infarction. 2. Coronary artery disease. 3. Previous bypass surgery in 1991. 4. Peripheral vascular disease. 5. Recent yzfjz-fngg-xnpkoqhper secondary to peripheral vascular disease. 6. Congestive heart failure, chronic systolic dysfunction. 7. Cardiomyopathy. 8. Chronic obstructive pulmonary disease. 9. Paroxysmal atrial fibrillation. 10. Hyperlipidemia. 11. Hypertension. HISTORY OF PRESENT ILLNESS: Mr. Barnes presented with peripheral vascular disease and ended up with a left AKA. He began having chest pain and shortness of breath a day. His troponin is 10. He has a history of coronary artery disease, status post coronary bypass graft surgery in 1991. He has a history of congestive heart failure, chronic systolic dysfunction and cardiomyopathy. PHYSICAL EXAMINATION: GENERAL APPEARANCE: Well-nourished, well-developed, appears stated age. Level of distress, comfortable. PSYCHIATRIC: Mental status, alert, normal affect. Orientation, oriented to time, place and person. EYES: Lids and conjunctiva, noninjected. No discharge, no pallor. ENT: Lips, teeth, gums, normal dentition. Oropharynx, no cyanosis, no pallor. NECK: Carotid arteries, bilateral normal upstroke, no bruits, no thrills. JUGULAR VEINS: No jugular venous pressure or distention. CERVICAL LYMPH NODES: Nontender, nonenlarged. THYROID: Not enlarged. Nontender. No nodules. LUNGS: Respiratory effort, unlabored. CHEST: Normal curvature. No thoracic deformity. No chest wall tenderness. Percussion, resonant. Auscultation, clear. No wheezes, no rales, no rhonchi. He has bibasilar crackles. CARDIOVASCULAR: Precordial exam, nondisplaced. No heaves or pericardial thrills. Heart is tachy, irregular with atrial fibrillation. Heart sounds, normal S1, normal S2. No S3, no gallop, no rub. Systolic murmur, not heard. Diastolic murmur, not heard. EXTREMITIES: No cyanosis, no edema. Peripheral pulses, full and equal in all extremities, except as noted. No bruits appreciated. ABDOMEN: Soft, nondistended. Normal aorta. No bruit. Nontender. No masses. Liver, nontender, no hepatomegaly. Spleen, nontender, no splenomegaly. MUSCULOSKELETAL: No joint tenderness. No joint swelling. No erythema. NEUROLOGICAL: Normal gait, normal strength, normal tone. SKIN: Warm and dry. CONSULT REPORT [id number] OLIVIER BARNES REVIEW OF SYSTEMS: The patient reports easy bruising but reports no swollen glands. The patient reports no fever, no night sweats, no significant weight gain, no significant weight loss. No significant exercise tolerance. The patient reports no dry eyes, no irritation, no vision change. Patient reports no difficulty hearing and no ear pain. Patient reports no frequent nose bleeds or nose and sinus problems. Patient reports on arm pain on exertion. No shortness of breath while lying down. No history of heart murmur. Patient reports no cough, no wheezing or coughing up blood. Patient reports no abdominal pain, no vomiting. Normal appetite. No diarrhea and not vomiting blood. No nausea and no constipation. Patient reports no incontinence. No difficulty urinating. No hematuria. No increased frequency. Patient reports no muscle aches. No weakness, no arthralgias, no back pain. No swelling of the extremities. Patient reports no abnormal mole, no jaundice, no rashes. Reports no loss of consciousness. No weakness and no numbness. No seizures, dizziness, or headaches. The patient reports no depression, no sleep disturbance, feeling safe in a relationship and no alcohol abuse. Patient reports on fatigue. Reports no runny nose or sinus pressure. No itching, no hives, and no frequent sneezing. OVERALL IMPRESSION: Non-Q-wave myocardial infarction and continued chest pain, shortness of breath is most likely pulmonary edema, congestive heart failure. We will proceed with coronary angiography. Further care depends upon findings of the angiography. TRANSINT:[id number] Voice Confirmation ID: [id number] DOCUMENT ID: [id number] PAUL THOMSON MD at 1416 CC: [id number] DICTATION DATE: 05/29/16 1642 CROSSTIE INSPECTOR: 05/29/16 2331 ADM IN [address] [place] [address]
--- NOTE | 2016-06-01 14:16 | OP ---
PATIENT NAME: OLIVIER HAYES MEDICAL RECORD: [id number] :45 LOCATION:D.M2 D.2138 ADMISSION DATE:05/25/16 SURGEON: PAUL THOMSON MD DATE OF OPERATION: 05/29/2016 PROCEDURES: 1. Aortofemoral runoff. 2. Abdominal aortography. INDICATIONS: Peripheral vascular disease, inability to gain access for cardiac catheterization. PROCEDURE IN DETAIL: After informed consent was obtained and after detailed explanation of risks, benefits as well as alternative therapies, the patient elected to proceed with angiogram. The right radial area was prepped and draped in normal sterile fashion. The right radial artery was cannulated via modified Seldinger technique with placement of 5-Emirati sheath. FINDINGS: 1. Abdominal aortography was performed. The catheter was advanced for aortofemoral runoff. Abdominal aortography reveals wide patency of his abdominal aortic stent graft. 2. Right leg: A. Iliac. The common iliac is totally occluded. Previously placed stent is totally occluded. B. There is a femoral-femoral crossover graft from left to right. This is patent. C. Femoral system: The deep femoral and superficial femoral are severely diffusely diseased and totally occluded in the mid vessel. Popliteal and infrapopliteal vessels were unable to be visualized secondary to the total occlusion of the SFA. 3. Left leg: A. Iliac: The common iliac is extension from the stent graft and this is widely patent. B. Femoral system: The common and deep femoral are widely patent, femoral-femoral crossover graft is patent as above. The superficial femoral is severely diffusely diseased and then totally occluded in the mid vessel. OVERALL IMPRESSION: Wide patency of the abdominal aortic aneurysm stent graft, wide patency of the left iliac and left common femoral, wide patency of the femoral-femoral crossover graft, severe diffuse disease of the SFAs bilaterally. TRANSINT:[id number] Voice Confirmation ID: [id number] DOCUMENT ID: [id number] PAUL THOMSON MD at 1416 CC: [id number] DICTATION DATE: 05/29/16 1645 FLITCH HANGER: 05/30/16 0045 ADM IN [id number] [place] [address]
--- NOTE | 2016-06-01 15:05 | NUR ---
NO SS OF DISTRESS AT THIS TIME. WILL CONTINUE TO MONITOR.
--- NOTE | 2016-06-01 16:45 | NUR ---
Patient Name: OLIVIER HAYES Encounter No: [id number] : 1945 Primary Insurance: [facility] Anticipated DC Date: Planned Disposition: Inpatient Rehab External Planned Provider: [facility] INPATIENT REHAB DCP follow-up note: CM MET WITH PT AND SPOUSE IN ROOM TO DISCUSS DISCHARGE NEEDS AND PLANNING. CM DISCUSSED AVAILABILITY OF HOME HEALTH, REHAB SERVICES AND MEDICAL EQUIPMENT. PT WOULD LIKE TO BE CONSIDERED FOR INPATIENT REHAB AT [facility]. SPOUSE TO TRANSPORT HOME AT DISCHARGE. IMPORTANT MESSAGE FROM MEDICARE PROVIDED AND EXPLAINED. Lan Barkley, CASE MANAGEMENT
--- NOTE | 2016-06-01 19:45 | NUR ---
DENIES NEEDS AT THIS TIME. HOB UP SR UP X2, C/L IN REACH. VISITING AT BEDSIDE. LEFT NEW AKA WITH DRESSING CDI UP ON PILLOW FOR C & C. YADAV CATH INTACT AND PATENT WITH YELLOW URINE NOTED IN BAG. O2 @3L VIA NC IN USE. RESP UNLAB LEFT HAND SL INTACT WITH NO R/S NOTED AT SITE. RIGHT SCD IN PLACE TO RIGHT LOWER LEG. CHRISTA WELL. CONTINUE TO MONITOR.
[2016-06-02 01:44] VITALS: BP 135/69
--- NOTE | 2016-06-02 03:22 | NUR ---
EYES CLOSED, RESP EVEN AND UNLAB WITH NO S/S OF ACUTE DISTRESS NOTED. C/L IN REACH.
[2016-06-02 06:10] VITALS: BP 135/70
[2016-06-02 07:39] LABS: BASOPHILS 0.1 % (0.0-2.0); EOSINOPHILS 1.8 % (0-7); HEMOGLOBIN 11.4 g/dL (13.5-17.5); IMMATURE GRANULOCYTES 0.9 % (0-5); LYMPHOCYTES 10.3 % (15-50); MCHC 31.7 g/dL (31.0-37.0); MCV 104.3 fL (80.0-100.0); MEAN PLATELET VOLUME 11.4 fL (7.4-10.4); MONOCYTES 6.3 % (2-11); NEUTROPHILS 80.6 % (40-80); RBC 3.45 10x6/uL (4.20-6.10); RDW 13.9 % (11.5-14.5); WBC 9.7 10x3/uL (4.8-10.8)
[2016-06-02 07:41] LABS: PLATELET COUNT 138 10x3/uL (130-400)
[2016-06-02 08:02] LABS: CALCIUM 8.8 mg/dL (8.5-10.1); CARBON DIOXIDE 34.7 mmol/L (21.0-32.0); CREATININE - SERUM 1.1 mg/dL (0.6-1.3); MAGNESIUM - SERUM 2.8 mg/dL (1.8-2.4); PHOSPHOROUS 3.8 mg/dL (2.5-4.9); POTASSIUM - SERUM 3.7 mmol/L (3.5-5.1)
[2016-06-02 08:07] LABS: C-REACTIVE PROTEIN 29.9 mg/dL (0.0-0.9)
[2016-06-02 08:08] VITALS: BP 138/62
[2016-06-02 11:39] VITALS: BP 157/61
--- NOTE | 2016-06-02 13:14 | NUR ---
PT PT OFF TO CAPRICE AMBROSIO ONCOMING NURSE. PT DENIES ANY FURTHER NEEDS AT THIS TIME.
--- NOTE | 2016-06-02 14:35 | NUR ---
Rehab Note- Call from Apoorva with [facility] requesting all clinicals to be faxed to [phone]. Faxed requestied information & awaiting PreAuth at this time. Will cont to follow the patient at this time. Daisha Zavala RN Clinical Liaison, Rehab Care/[place]
--- NOTE | 2016-06-02 15:10 | NUR ---
Patient Name: OLIVIER HAYES Encounter No: [id number] : 1945 Primary Insurance: [employer] Anticipated DC Date: Planned Disposition: Inpatient Rehab External Planned Provider: [facility] INPATIENT REHAB DCP follow-up note: CM SPOKE TO HOWIE OF [facility] INPATIENT REHAB WHO ADVISED THAT PT'S INFORMATION HAS BEEN SENT TO PT'S INSURANCE COMPANY FOR AUTHORIZATION OF INPATIENT REHAB SERVICES. CM WAITING PT'S INSURANCE COMPANY AUTHORIZATION OR DENIAL OF INPATIENT REHAB SERVICES. Lan Barkley, CASE MANAGEMENT
[2016-06-02 15:42] VITALS: BP 109/37
--- NOTE | 2016-06-02 18:11 | NUR ---
Pt was received this afternoon in bed awake and family at bedside. Pt. denies any needs and/or concerns at that time. Saline Lock in RAC. Pt. requires maximum assist. 02 per nc going at 3L/min. Call light is in reach.
--- NOTE | 2016-06-02 19:30 | NUR ---
ASSESSMENT COMPLETE, DENIES NEEDS AT THIS TIME. HOB UP SR UP X2, C/L IN REACH. LEFT AKA UP ON PILLOW FOR C & C. DRSG CDI. LEFT HAND SL INTACT WITH NO R/S NOTED AT SITE. CONTINUE TO MONITOR. VISITING AT BEDSIDE.
[2016-06-02 20:11] VITALS: BP 127/74
--- NOTE | 2016-06-02 21:30 | NUR ---
IV PULLED OUT INTACT PER PT PER 'S STATEMENT. LEFT HAND CLEANED AND BANDAID APPLIED. CHRISTA WELL. ICU NURSE NOTIFIED OF NEED FOR NEW SITE. 20GA IV CATH TO RT UPPER ARM WITH ONE STICK. CHRISTA WELL. NO R/S NOTED AT SITE. HOB UP SR UP X2, C/L IN REACH.
--- NOTE | 2016-06-03 01:52 | NUR ---
ASSIST WITH BED QUEEN FOR BM. CHRISTA WELL. MEDIUM SIZE SONI NOTED. NELSY CARE GIVEN AND ASSIST WITH REPOSITIONING FOR C & C. CHRISTA WELL. C/L IN REACH.
[2016-06-03 02:18] VITALS: BP 137/61
[2016-06-03 06:42] VITALS: BP 171/66
--- NOTE | 2016-06-03 08:10 | NUR ---
ASSESSMENT DONE. PT SITTING UP IN USING URINAL. PT IS SLIGHTLY CONFUSED. HE IS PICKING AT THE DRESSING TO HIS LEFT STUMP. REMINDED PT TO NOT PICK AT IT. NURSE WILL RE-ENFORCE. BED ALARM ON. CALL LIGHT WITH IN REACH. REMINDED PT TO CALL FOR ASSISTANCE. WILL CONT. TO MONITOR
--- NOTE | 2016-06-03 08:22 | NUR ---
PT TO CT VIA BED/
[2016-06-03 08:56] VITALS: BP 138/75
--- NOTE | 2016-06-03 09:36 | NUR ---
RESP UL ON . AT BS. CALL LIGHT IN REACH. WILL CONT. PLAN OF CARE.
--- NOTE | 2016-06-03 09:43 | NUR ---
Rehab Note- Received call from [facility] and patient has been denied an IRF stay, but has been approved for a SNF stay. Informed GÓMEZ Medrano. Thank you for this referral! Daisha Zavala RN Clinical Liaison, Rehab Care/[place]
[2016-06-03 12:28] VITALS: BP 149/62
--- NOTE | 2016-06-03 14:34 | NUR ---
PT SITTING ON SIDE OF BED. SPOUSE IN ROOM. PT IS REFUSING BREATHING TREATMENT. HE IS CONFUSED AND WANTS TO GO HOME. BED ALARM ON. CALL LIGHT WITH IN REACH. WILL CONT. TO MONITOR.
--- NOTE | 2016-06-03 15:13 | NUR ---
DRESSING CHANGE TO INCISION LEFT STUMP. MINIMAL SEROUS DRAINAGE NOTED. COLBY INTACT. NO S/S OF INFECTION. CLEANED WOUND WITH WOUND CLEANSER, PAT DRY. APPLIED BORDER GAUZE, AND SECURED WITH EXTRA MEDIPORE TAPE. PT TOLERATED WELL. WILL CONT. TO MONITOR.
[2016-06-03 15:44] VITALS: BP 156/44
--- NOTE | 2016-06-03 15:51 | NUR ---
Patient Name: OLIVIER HAYES Encounter No: [id number] : 1945 Primary Insurance: [employer] Anticipated DC Date: 06-03-2016 Planned Disposition: Snf Facility External Planned Provider: [facility], MEDICARE REHAB BED DCP follow-up note: VENANCIO, CLINICAL LIAISON FOR [facility], , ARRIVED AND VISTED WITH PT AND SPOUSE IN ROOM, NOTIFIED CM OF CLINICAL ACCEPTANCE; THEY ARE SUBMITTING FOR INSURANCE AUTHORIZATION NOW. CM WAITING INSURANCE AUTHORIZATION FOR REHAB SERVICES. AT [facility]. Lan Barkley, CASE MANAGEMENT
--- NOTE | 2016-06-03 16:13 | NUR ---
PT SITTING UP ON SIDE OF BED. STUMP BLEEDING. RE-DRESSED SITE WITH ABD PAD AND 4X4'S AND SECURED WITH TAPE. ENCOURAGED PT TO ELEVATED STUMP ON PILLOW. ALSO PT NOT WEARING O2. REMINDED PT TO PT ON NC. NURSE HAS HAD TO REMIND PT SEVERAL TIMES TO PUT O2 ON TODAY. WILL CONT. TO MONITOR.
--- NOTE | 2016-06-03 16:38 | NUR ---
PT SITTING UP ON SIDE OF BED. NO BLEEDING TO STUMP NOTED AT THIS TIME. ENCOURAGED PT TO LAY IN BED WITH HOB ELEVATED AND ELEVATED STUMP OF PILLOW. PT REFUSES. HE IS CURRENTLY WEARING O2 AT THIS TIME.
--- NOTE | 2016-06-03 17:42 | NUR ---
PT REFUSING TO WEAR O2. O2 SAT 93% ON RA. ALSO REFUSING BREATHING TREATMENTS. PT IS CONFUSED. HE HAS CALLED SEVERAL FAMILY MEMBERS TO COME PICK HIM UP. SPOUSE STILL AT BED SIDE. BED ALARM ON. PT REFUSES TO ELEVATE STUMP. WILL CONT. TO MONITOR. DRESSING TO LEFT STUMP IS CURRENTLY CLEAN,DRY AND INTACT.
--- NOTE | 2016-06-03 19:19 | NUR ---
EVITA FROM MRI AT BED SIDE, PT REFUSING TO GO, STATES THAT HE WILL GO AFTER HE GET SOME THING TO EAT OR DRINK. EXPLAINED TO PT THAT HE HAS TO BE NPO FOR MRI AND WILL BE ABLE TO EAT AFTER, PT STILL REFUSING TO GO.
--- NOTE | 2016-06-03 21:16 | NUR ---
HS MEDS GIVEN, AT BED SIDE WITH MCDONALDS FOR PT TO EAT.
[2016-06-03 22:30] VITALS: BP 167/69
--- NOTE | 2016-06-04 00:18 | NUR ---
LEFT STUMP DRSG SATURATED WITH BLOOD. REMOVED OLD DRSG, CLEANSED WOUND. COVERED INCISION WITH 4X4S, ABD PAD AND TAPE, THEN WRAPPED WITH KERLIX AND GOGO BANDAGE. PT TOLERATED WELL. REPOSITIONED IN BED FOR COMFORT. WILL CONT TO MONITOR.
[2016-06-04 01:21] VITALS: BP 177/66
--- NOTE | 2016-06-04 03:26 | NUR ---
UP WITH ASSIST TO CHAIR AT BED SIDE.
--- NOTE | 2016-06-04 04:20 | NUR ---
LYING IN BED WITH EYES CLOSED, CALL LIGHT IN REACH. WILL CONTINUE WITH PLAN OF CARE.
--- NOTE | 2016-06-04 05:03 | NUR ---
XRAY AT BED SIDE, BACK TO BED WITH ASSISTANCE, WILL CONT TO MONITOR.
[2016-06-04 05:59] VITALS: BP 160/47
[2016-06-04 06:07] LABS: BASOPHILS 0.1 % (0.0-2.0); EOSINOPHILS 0 % (0-7); HEMATOCRIT 38.4 % (42.0-54.0); IMMATURE GRANULOCYTES 1.3 % (0-5); LYMPHOCYTES 3.7 % (15-50); MCH 32.5 pg (26.0-34.0); MCHC 31.3 g/dL (31.0-37.0); MCV 104.1 fL (80.0-100.0); MEAN PLATELET VOLUME 10.4 fL (7.4-10.4); MONOCYTES 5.2 % (2-11); NEUTROPHILS 89.7 % (40-80); RBC 3.69 10x6/uL (4.20-6.10); RDW 14.4 % (11.5-14.5)
[2016-06-04 06:20] LABS: PLATELET COUNT 227 10x3/uL (130-400); WBC 15.3 10x3/uL (4.8-10.8)
[2016-06-04 06:53] LABS: CALCIUM 8.9 mg/dL (8.5-10.1); CARBON DIOXIDE 29.8 mmol/L (21.0-32.0); CHLORIDE - SERUM 107 mmol/L (98-107); CREATININE - SERUM 1.2 mg/dL (0.6-1.3); GLUCOSE 156 mg/dL (74-106); MAGNESIUM - SERUM 2.6 mg/dL (1.8-2.4); PHOSPHOROUS 3.8 mg/dL (2.5-4.9); POTASSIUM - SERUM 3.7 mmol/L (3.5-5.1); PRO BNP 4923 pg/mL (0-125); SODIUM 148 mmol/L (136-145); eGFR NON AFRICAN AMERICAN 64 mL/min (90-120)
[2016-06-04 06:54] LABS: CALC OSMOLALITY 303 mosm/kg (275-300); CREATINE KINASE 1430 UL (21-232); UREA NITROGEN 33 mg/dL (7-18)
[2016-06-04 06:55] LABS: CKMB 8.3 U/L (0.0-3.6)
[2016-06-04 07:49] VITALS: BP 150/64
--- NOTE | 2016-06-04 08:07 | NUR ---
PT IS SITTING UP ON SIDE OF BED. PER REPORT FROM BUILDING DRAFTING OFFICER NURSE BREE, PT REFUSED TO BE NPO LAST NIGHT FOR A MRI TODAY. CAPRICE GIRON STATED SHE CALLED RADIOLOGY TO LET THEM KNOW HE REFUSED TO BE NPO. PT IS ALERT BUT CONFUSED AT TIMES PER REPORT. BED ALARM IS ON. ON 02 AT 2L VIA NC. BEDSIDE COMMODE. 20G IV SEEN TO RIGHT UPPER ARM THAT IS SALINE LOCKED AND PATENT. SCD AT BEDSIDE THAT PT WEARS TO RIGHT LEG. PT HAS NEW AKA TO TO LEFT SIDE WITH CLEAN, DRY, AND INTACT DRESSING SEEN. INSTRUCTED PT TO USE CALL LIGHT WHEN NEEDING ASSISTANCE TO BEDSIDE COMMODE. WILL CONTINUE TO MONITOR.
--- NOTE | 2016-06-04 08:53 | NUR ---
Patient Name: OLIVIER HAYES Encounter No: [id number] : 1945 Primary Insurance: [employer] Anticipated DC Date: 06-03-2016 Planned Disposition: Care Home Facility External Planned Provider: [facility], MEDICARE REHAB BED DCP follow-up note: GÓMEZ RECEIVED CALL FROM TOM OF [facility] IN [place], ; INSURANCE HAS AUTHORIZED REHAB FOR PT. TOM WILL CALL PT'S SPOUSE AND HAVE HER FILL OUT ADMISSION PAPERWORK, [facility] WILL SCHEDULE VAN TO PICK PT UP TODAY AND ASKED THAT PT BE DISCHARGED SOON POSSIBLE IF READY FOR DISCHARGE TODAY. GÓMEZ PAGED DR. RIVERA TO NOTIFY OF INSURANCE AUTHORIZATION FOR REHAB AT [facility] AND REQUEST DISCHARGE ORDERS. FOR DISCHARGE, NOTIFY TOM AT [phone], WHO WILL PROVIDE VAN FILM LIBRARY CLERK TIME. FAX DISCHARGE INFORMATION TO [facility] AT [phone]. NURSE REPORT TO BE CALLED TO SAUL AT [facility], . Lan Barkley, CASE MANAGEMENT
[2016-06-04 11:47] VITALS: BP 147/63
--- NOTE | 2016-06-04 13:31 | NUR ---
Nutrition Follow Up: Chart reviewed. Pt is s/p L AKA on 05/26/16. Pt is on an AHA diet with fair po intake. I<O. Wt down 19# since admit.?? +BM 06/03/16. Labs noted - Na, Glucose, Mag elevated. Meds noted including Solu Medrol and Zofran. Noted pt refused an MRI x 2 times. Pt with fair po intake at this time. Rec changing diet to AHA ADA to aid in Glucose control. RD will continue to monitor pt progress.
[2016-06-04] MEDS ORDERED: HYDROCODONE-APA1 TAB PO (14:11)
[2016-06-04] MEDS ORDERED: BETAPACE 80 MG80 MG PO (14:12)
[2016-06-04] MEDS ORDERED: PREDNISONE10 MG PO (14:13)
--- NOTE | 2016-06-04 14:39 | NUR ---
WOUND CARE CONSULT: NOTED PEELING DRY SKIN ON BUTTOCKS/SACRUM. NOTED AN AREA THAT HAS HEALED ON LEFT UPPER BUTTOCK AREA. BLANCHABLE REDNESS IS NOTED - ZINC OXIDE PASTE IS BEING APPLIED NEEDED DAILY. WILL CONTINUE TO MONITOR.
[2016-06-04] MEDS ORDERED: ASPIRIN81 MG PO (14:45)
--- NOTE | 2016-06-04 16:25 | NUR ---
Patient Name: OLIVIER HAYES Encounter No: [id number] : 1945 Primary Insurance: [employer] Anticipated DC Date: 06-04-2016 Planned Disposition: Residential Facility External Planned Provider: [facility] MEDICARE REHAB BED DCP follow-up note: CM RECEIVED DISCHARGE ORDER, CALLED AND NOTIFIED TOM AT [phone]; VAN TO MAGAZINE JOURNALIST PT AT APPROXIMATELY 5PM, THE VAN IS ON THE WAY BACK FROM [place]. TOM ASKED THAT CM HAVE PT'S SPOUSE COME TO [facility] TO COMPLETE ADMISSION PAPERWORK. CM NOTIFIED PT AND PT'S SPOUSE, BOTH IN AGREEMENT WITH DISCHARGE TO REHAB, PT'S SPOUSE ON THE WAY TO [facility] TO FILL OUT PAPERWORK. PAY STATION DEPARTMENT MANAGER NOTIFIED. CM FAXED DISCHARGE INFORMATION TO [facility] AT [phone]. NURSE REPORT TO BE CALLED TO SAUL AT [facility], . Lan Barkley, CASE MANAGEMENT
--- NOTE | 2016-06-04 16:36 | NUR ---
PTS D/C PAPERWORK WAS EXPLAINED TO PT, SIGNED AND DATED BY AND PLACED IN CHART. PTS IV TO RIGHT UPPER ARM WAS REMOVED WITH CATH TIP INTACT, TOLERATED WELL. AWAITING HALFWAY TO COME AND GET PT. WILL CONTINUE TO MONITOR.
--- NOTE | 2016-06-04 17:34 | NUR ---
1645- PT D/C TO REHAB VIA WHEELCHAIR.
--- NOTE | 2016-06-05 11:12 | EC ---
PATIENT:OLIVIER HAYES DATE OF SERVICE: 05/25/16 SEX: M MEDICAL RECORD: [id number] DATE OF : [birth year] LOCATION:D.M2 D.213 AGE OF PATIENT: 70 ADMISSION DATE: 05/25/16 REFERRING PHYSICIAN: INTERPRETING PHYSICIAN: PAUL WILSON MD ECHOCARDIOGRAM REPORT ECHO CHARGES 4 ECHO COMPLETE CLINICAL DIAGNOSIS: CHF HX CAD/CABG ECHOCARDIOGRAPHIC MEASUREMENTS (adult normal given) AC root (d.<3.7cm) 4.5 LV Septum d (<1.2 cm> 1.4 Valve Excursion 1.8 LV Septum (systole) 1.5 Left Atria (s.<4.0cm> 4.9 LVPW d(<1.2cm) 1.4 RV (d.<2.3cm) 4.9 LVPW (sytole) 1.5 LV diastole(<5.6CM) 6.5 MV E-F(>70mm/sec) LV systole 5.0 LVOT Diameter 2.4 MV exc.(>10mm) 1.8 Est.ejection fraction (50-75%) Pericardial Effusion N DOPPLER: LVIT A 88.0 E 77.0 LA RVSP 27 LVOT 105 AOP1/2T Asc. Ao 163 RVOT 121 RA PA 128 AV Gradient Peak 10.61 AV Mean 5.0 AV Area 3.5 MV Gradient Peak 5.7 MV Mean 2.03 MV Area COMMENTS: Aircraft Parts Assembler: Arely BEAVERS Product Consultant:Merced Wilson TAPE# PACS DATE OF SERVICE: 06/02/2016 Echocardiogram FINDINGS: 1. Left ventricular chamber size is within normal limits. Left ventricular systolic function is normal, ejection fraction 50%. 2. Left atrium is dilated at 4.9 cm. Right atrium and right ventricular chamber sizes are as well mildly dilated. 3. Valvular structures have normal structure and motion. ECHOCARDIOGRAM REPORT [id number] OLIVIER HAYES 4. Doppler interrogation reveals mild mitral regurgitation, mild tricuspid regurgitation, no other valvular insufficiency or stenosis. Pulmonary systolic pressure is normal estimated at 27 mmHg. 5. No evidence of pericardial effusion or left ventricular thrombus. TRANSINT:[id number] Voice Confirmation ID: [id number] DOCUMENT ID: [id number] PAUL WILSON MD at 1112 CC: [id number] DICTATION DATE: 06/02/16 1314 SENIOR COMPLIANCE OFFICER: 06/02/16 2238 DIS IN 06/04/16 [place] [id number] [place] [id number]
--- NOTE | 2016-07-01 10:17 | HP ---
PATIENT: OLIVIER BARNES MEDICAL RECORD: [id number] ACCOUNT: [id number] LOCATION:D. D.2138 : [birth year] ADMISSION DATE: 05/25/16 HISTORY AND PHYSICAL EXAMINATION Addendum CHIEF COMPLAINT: Pain. I am water conservation specialist for Dr. Hinton. I received a phone call from [facility]. Mr. Barnes had presented there with a pulseless, painful, cold left lower extremity that also had pallor, paresthesias with numbness and was not functional below the level of the knee. I asked the patient be transferred immediately to [facility]. While at [facility], he underwent arterial and venous studies and no AMANDA could be calculated on the left as there was Doppler signal at the left ankle. Upon presentation to [place], he was admitted to the ICU. I saw him almost immediately. The patient's left lower extremity is in grave condition. He has had pain as well as numbness and a cool left lower extremity since Wednesday. Today is Wednesday. His is present. She encouraged him to seek medical attention on Wednesday, but he elected not to. The patient has undergone aortic stent graft in the past by Dr. Hinton. A fem-fem bypass as well as a left fem-pop bypass and from the patient's description, some type of endovascular intervention as well. He is unable to move his left toes. He is unable to plantar flex or dorsiflex at the left ankle. There is no Doppler signal at the left peroneal artery, the left posterior tibial artery, the left dorsalis pedis artery, the left anterior tibial artery, the left popliteal artery, the left superficial femoral artery. There is a weak monophasic signal in the left common femoral artery. The level of demarcation appears to be at or just above the knee. I then told the patient that he is going to do very poorly with an amputation. However, he also has significant renal disease and I have discussed this with the radiologist. He has underlying kidney disease. His CPK is over 1100. We are fearful that a contrast dye study to give us a better "roadmap" of his arterial system could precipitate end-stage renal disease with dialysis and worsening his congestive heart failure. If we were to try to hydrate him prior to administering intravenous contrast before undergoing a CTA that could precipitate congestive heart failure as well. He is dyspneic at rest. He states that he has continued to smoke. Dr. Hinton has told in the past that if he continued to smoke that he was going to lose the left lower extremity and indeed that appears to be the case. I spoke with Dr. Hinton by phone. We discussed several options. The patient rides around in a mobility chair. He can walk about 5-10 feet prior to this event on Wednesday. He states he has been taking his Plavix. He has been noncompliant and that he did not follow up with Dr. Hinton since 2013. My fear is that if we are very aggressive with this patient that he will end up with end-stage renal disease on dialysis and then with worsening congestive heart failure and probably on life support. Another option would be to place the patient on heparin, which I have done, topical nitrates and allow the left lower extremity to demarcate so that we know what is going to be the level of HISTORY AND PHYSICAL [id number] OLIVIER BARNES the amputation. As I have told the patient due to his underlying dysequilibrium and his weight, it is unlikely that he would ever be able to ambulate with a uhhde-uqc-mqax amputation prosthetic much less an above the knee amputation prosthetic. The patient has told me that he anticipated that this was going to be eventuality. So, Dr. Hinton is going to go by and see the patient sometime this evening. We are going to plan on not being very aggressive. I have canceled the CTA which I have ordered. We are going to plan to watch the lower extremity demarcate and then plan for an amputation. I have discussed this with the patient as well as with his nurse. We will obtain a nephrology consultation as well as critical care consultation and medical consultation. The patient's primary care physician is Dr. Familia Presley. This is a history and physical addendum. For the past medical and surgical history, current medications, allergies as well social history, please see the chart. REVIEW OF SYSTEMS: No nausea, no vomiting, no fever, no chills, no chest pain. Positive for orthopnea, positive for paroxysmal nocturnal dyspnea, positive for dyspnea with exertion, positive for urinary hesitancy, currently no chest pain. Review of systems is negative other than as is described above. PHYSICAL EXAMINATION: GENERAL: The patient appears acutely ill. Also appears chronically ill. VITAL SIGNS: Reviewed. HEAD: External ears appear normal. EYES: Extraocular movements are intact. NECK: Trachea is midline. CHEST: No intercostal retractions. PULMONARY: Audible wheezing, expiratory. ABDOMEN: Protuberant and nontender. EXTREMITIES: As described above. PSYCHIATRIC: Normal affect. NEUROLOGIC: He has one small area that is sensate on the plantar surface of the left foot. It is insensate up to the level of the patella, otherwise involving the left lower extremity. BACK: No thoracic kyphosis. LYMPHATICS: No lymphangitic streaking of the exposed extremities. IMPRESSION: A man with a nonviable ischemic left lower extremity that is beginning to infarct. He has underlying kidney disease as well as congestive heart failure. He is a smoker. He has been noncompliant with his followup with his cardiovascular surgeon. PLAN: As described above. TRANSINT:[id number] Voice Confirmation ID: [id number] DOCUMENT ID: [id number] HISTORY AND PHYSICAL [id number] OLIVIER BARNES, CECILIA YANG at 1017 CC: ZURI GOMEZ MD, NAHEED HINOJOSA M.D., KELLY PRESLEY [id number], СВЕТЛАНА YANG and KRYSTIN HINTON MD DICTATION DATE: 05/25/16 1517 STEAMBOAT CAPTAIN: 05/25/16 1602 DIS IN 06/04/16 [facility] [address] [place] [address]
--- NOTE | 2016-07-01 10:17 | PN ---
PATIENT:OLIVIER HAYES MEDICAL RECORD: [id number] LOCATION:D. D.213 ADMISSION DATE: 05/25/16 PROGRESS NOTE DATE OF SERVICE: 05/26/2016 This is a progress note addendum CHIEF COMPLAINT: Worse. HOSPITAL COURSE: I saw the patient earlier today. I talked with the patient as well as with his . The numbness now extends up to the knee. He now has early gangrenous changes involving the forefoot on the left as well as all the toes. He is completely insensate inferior to the knee. The extremity is cool. The posterior compartment of the leg is starting to get a little tight. The extremity is cold. The line of demarcation between warm and cold is actually above the knee, which is somewhat disconcerting. It is cephalad to the patella. The patient is going to require an aotwu-kcw-ztfu amputation. I contacted Dr. Hinton's nurses. They contacted him. I have recommended an ctjds-jvt-nqtk amputation. Dr. Hinton agreed. I then went and found Dr. Rodriguez. We spoke to Dr. Rodriguez and kept the patient n.p.o. We recommend a left hgpyo-xkt-bmnt amputation. The patient underwent the procedure. It is my understanding that even at the above knee amputation level, the blood flow was marginal. The patient has been afebrile. BUN today was 45, which is improved and likely due to hydration. Creatinine is 2.5, which is likely due to some gentle hydration as well. Palpation aggravates. Nothing alleviates. Symptoms are severe. The patient had a good bit of pain now. It is nonradiating. REVIEW OF SYSTEMS: No nausea and no vomiting. No fever and no chills. Positive for orthopnea. Positive for dyspnea on exertion. Positive for shortness breath at rest. No chest pain. The review of systems is negative other than as is described above. This is a progress note addendum. For the typed portion of the progress note, including the past medical and surgical history, allergies, social history, as well as home medications, please see the typed portion of the note in the chart. PHYSICAL EXAMINATION: GENERAL: The patient appears acutely ill. He also appears chronically ill. VITAL SIGNS: Reviewed. HEAD: External ears appear normal. EYES: Extraocular movements are intact. NECK: Trachea is midline. CHEST: No intercostal retractions. PULMONARY: Nonlabored and no stridor. ABDOMEN: Nontender. EXTREMITIES: No peripheral cyanosis. INTEGUMENT: No rash and no ulcerations. PSYCHIATRIC: Normal affect. NEUROLOGIC: Numbness as described above. EXTREMITIES: Pallor and paralysis of the left lower extremity as described above. BACK: No thoracic kyphosis. LYMPHATIC: No lymphangitic streaking of the exposed extremities. PROGRESS NOTE [id number] OLIVIER HAYES PSYCHIATRIC: Normal affect. IMPRESSION: Nonviable left lower extremity. I think we will be brit if the patient will heal up an bfhvs-psx-sdxj amputation. PLAN: Ozcwh-yeh-jmir amputation which has occurred. Watchful waiting. Hopefully, the patient will have enough blood flow to the level of the amputation to heal the tissues there without requiring a further revision of the thigh. TRANSINT:[id number] Voice Confirmation ID: [id number] DOCUMENT ID: [id number] CECILIA RIVERA MD at 1017 CC: [id number] DICTATION DATE: 05/26/161921 RESOURCE FORESTER: 05/26/16 2100 DIS IN 06/04/16 [facility] [address] [place] [address]
--- NOTE | 2016-07-01 10:18 | PN ---
PATIENT:OLIVIER HAYES MEDICAL RECORD: [id number] LOCATION:D.M2 D.213 ADMISSION DATE: 05/25/16 PROGRESS NOTE DATE OF SERVICE: 05/27/2016 ADDENDUM CHIEF COMPLAINT: Better. The patient has undergone his left bnleo-eqp-cnjg amputation. This was a high amputation. He is not having any phantom limb pain. His pain is improved. He states that most of the pain is in the posterior flap. We are going to plan to move him to the floor. Hopefully, we can get him down to rehab and start working on some rehabilitation. His family is at the bedside. His pain is improved prior to the operation. Palpation aggravates. Nothing alleviates. Symptoms are mild. REVIEW OF SYSTEMS: No nausea, no vomiting, no fever, no chills. Positive for dyspnea at rest. Positive for dyspnea on exertion. No chest pain. Review of systems is negative other than as is described above. This is a progress note addendum. For the typed portion of the progress note including the past medical and surgical history, current medications, allergies, social history, please see the chart. PHYSICAL EXAMINATION: GENERAL: The patient does appear acutely ill. Also appears chronically ill. VITAL SIGNS: Reviewed. HEAD: External ears appear normal. EYES: Extraocular movements are intact. NECK: Trachea is midline. CHEST: No intercostal retractions. PULMONARY: Mildly labored. Expiratory wheezes. PULMONARY: No stridor. ABDOMEN: Protuberant. No peritonitis with movement. INTEGUMENT: There is an intertriginous rash. PSYCHIATRIC: Normal affect. NEUROLOGIC: Answers questions appropriately. BACK: No thoracic kyphosis. LYMPHATIC: No lymphangitic streaking of the exposed extremities. IMPRESSION: Satisfactory course after a left above the knee amputation due to ischemic/infarct left lower extremity. PLAN: Move to the floor. Hopefully, moved down to rehab in the next few days. TRANSINT:[id number] Voice Confirmation ID: [id number] DOCUMENT ID: [id number] PROGRESS NOTE [id number] OLIVIER HAYES, CECILIA YANG at 1018 CC: [id number] DICTATION DATE: 05/27/16 1251 CENTER MEDICAL SPECIALIST: 05/27/16 1828 DIS IN 06/04/16 [place] [id number] [place] [id number]
--- NOTE | 2016-07-01 10:18 | PN ---
PATIENT:OLIVIER HAYES MEDICAL RECORD: [id number] LOCATION:D.M2 D.213 ADMISSION DATE: 05/25/16 PROGRESS NOTE DATE OF SERVICE: 05/29/2016 Progress note addendum CHIEF COMPLAINT: Worse. HOSPITAL COURSE: The patient is very dyspneic. He has an elevated troponin. He is tachycardic. He appears to be septic. His white count demonstrates a left shift. His troponin is 10.32. His CPK is 24, 899. He appears to be in rhabdomyolysis. He appears to have had a non-Q-wave myocardial infarction. The patient appears septic. He is in respiratory distress. He has been moved at my request to the intensive care unit. It is very likely he will require mechanical ventilation. I think that he likely will do very poorly. I reviewed the pathology report from his left wpnlf-itu-stvj amputation. Family is at the bedside. They realized the gravity of the situation. I have talked to the . Symptoms came on gradually. They are worsening. They are difficult to characterize. He is still having some left stump pain. He is very dyspneic. He has orthopnea. No nausea and no vomiting. He has had fever and no chills. Positive for anxiety. Positive for dyspnea on exertion, positive for shortness of breath. REVIEW OF SYSTEMS: Negative other than as is described above. This is a progress note addendum. For the typed portion of the progress note including the past medical and surgical history, allergies, social history and home medications, please see the chart. PHYSICAL EXAMINATION: GENERAL: The patient appears acutely ill. He also appears chronically ill. VITAL SIGNS: Reviewed. HEAD: External ears appear normal. EYES: Extraocular movements are intact. NECK: Trachea is midline. CHEST: No intercostal retractions. PULMONARY: Superiorly labored. No stridor. Expiratory wheezes are present. ABDOMEN: No peritonitis with movement. EXTREMITIES: Left kyvrv-rac-kltk amputation stump, which has a dressing over it. PSYCHIATRIC: Anxious affect. NEUROLOGIC: Answers some questions. I can only speak in sentences of a few words due to his respiratory distress. GENITOURINARY: Deferred. BACK: Mild thoracic kyphosis. LYMPHATIC: No lymphangitic streaking of the exposed extremities. IMPRESSION: Worsening with non-Q-wave myocardial infarction, exacerbation of congestive heart failure, rhabdomyolysis, and respiratory distress. PROGRESS NOTE [id number] OLIVIER HAYES PLAN: Move to the ICU. Cardiology is already on the case as are orthopedic surgery, critical care group, and the shoe sprayer. Dr. Burton is going to be covering for me this weekend. I will consult Dr. Torres as well. TRANSINT:[id number] Voice Confirmation ID: [id number] DOCUMENT ID: [id number] CECILIA RIVERA MD at 1018 CC: [id number] DICTATION DATE: 05/29/16 1525 DAIRY LAB TECHNICIAN: 05/30/16 0727 DIS IN 06/04/16 [facility] [address] [place] [address]
== END 2016-06-04 16:45 | DRG 239 ==
LOC: D.M2 13:57 → D.ICU 13:57 → D.MS 13:57 → D.ICU 05-29 14:06 → D.M2 06-01 08:27
PROVIDERS: Family Medicine; Internal Medicine Interventional Cardiology; Internal Medicine Nephrology; Internal Medicine Pulmonary Disease; Orthopaedic Surgery Sports Medicine; ADMIT Surgery
PROC: 0Y680ZZ Detachment at Left Femoral Region, Open Approach (ICD-10-PCS; principal; 2016-05-26 15:15)
PROC: B2121ZZ Fluoroscopy of Single Coronary Artery Bypass Graft using Low Osmolar Contrast (ICD-10-PCS; 2016-05-29)
PROC: B2111ZZ Fluoroscopy of Multiple Coronary Arteries using Low Osmolar Contrast (ICD-10-PCS; 2016-05-29)
PROC: B2151ZZ Fluoroscopy of Left Heart using Low Osmolar Contrast (ICD-10-PCS; 2016-05-29)
PROC: B4101ZZ Fluoroscopy of Abdominal Aorta using Low Osmolar Contrast (ICD-10-PCS; 2016-05-29)
PROC: 027034Z Dilation of Coronary Artery, One Artery with Drug-eluting Intraluminal Device, Percutaneous Approach (ICD-10-PCS; 2016-05-29 14:45)
PROC: 4A023N7 Measurement of Cardiac Sampling and Pressure, Left Heart, Percutaneous Approach (ICD-10-PCS; 2016-05-29 14:45)
DX: I70.322 Atherosclerosis of unspecified type of bypass graft(s) of the extremities with rest pain, left leg (principal); J18.9 Pneumonia, unspecified organism; J96.02 Acute respiratory failure with hypercapnia; J96.01 Acute respiratory failure with hypoxia; I21.4 Non-ST elevation (NSTEMI) myocardial infarction; I50.23 Acute on chronic systolic (congestive) heart failure; I13.0 Hypertensive heart and chronic kidney disease with heart failure and stage 1 through stage 4 chronic kidney disease, or unspecified chronic kidney disease; N18.4 Chronic kidney disease, stage 4 (severe); N17.9 Acute kidney failure, unspecified; N13.30 Unspecified hydronephrosis; J44.1 Chronic obstructive pulmonary disease with (acute) exacerbation; E87.0 Hyperosmolality and hypernatremia; M62.82 Rhabdomyolysis; I25.10 Atherosclerotic heart disease of native coronary artery without angina pectoris; M10.9 Gout, unspecified; I99.8 Other disorder of circulatory system; E87.6 Hypokalemia; I72.3 Aneurysm of iliac artery; N28.89 Other specified disorders of kidney and ureter; I48.91 Unspecified atrial fibrillation; I08.1 Rheumatic disorders of both mitral and tricuspid valves; R74.8 Abnormal levels of other serum enzymes; F17.200 Nicotine dependence, unspecified, uncomplicated; Z91.19 Patient's noncompliance with other medical treatment and regimen

== ENCOUNTER 2017-02-15 08:07 | Inpatient (IN) | payer MEDICARE ==
[~2017-02-15 08:07] MED LIST changes: +ASPIRIN81 MG PO; +BETAPACE 80 MG80 MG PO; +HYDROCODONE-APA1 TAB PO; +NEURONTIN 300300 MG PO; +PREDNISONE10 MG PO
[2017-02-15 08:42] LABS: BASOPHILS 0.1 % (0-2); EOSINOPHILS 0.1 % (0-7); HEMATOCRIT 43.2 % (42.0-54.0); HEMOGLOBIN 13.6 g/dL (13.5-17.5); IMMATURE GRANULOCYTES 0.2 % (0-5); MCH 33.4 pg (26.0-34.0); MCHC 31.5 g/dL (31.0-37.0); MCV 106.1 fL (80.0-100.0); MEAN PLATELET VOLUME 10.9 fL (7.4-10.4); MONOCYTES 4.9 % (2-11); NEUTROPHILS 87.7 % (40-80); RBC 4.07 10x6/uL (4.20-6.10); RDW 14.7 % (11.5-14.5); WBC 14.6 10x3/uL (4.8-10.8)
[2017-02-15 08:48] LABS: PLATELET COUNT 149 10x3/uL (130-400)
[2017-02-15 08:58] LABS: ALKALINE PHOSPHATASE 112 U/L (46-116); ALT (SGPT) 72 U/L (10-68); BILIRUBIN - TOTAL 0.54 mg/dL (0.2-1.3); CALC OSMOLALITY 298 mosm/kg (275-300); CALCIUM 9.4 mg/dL (8.5-10.1); CARBON DIOXIDE 31.9 mmol/L (21.0-32.0); CHLORIDE - SERUM 104 mmol/L (98-107); CREATININE - SERUM 1.8 mg/dL (0.6-1.3); GLUCOSE 152 mg/dL (74-106); POTASSIUM - SERUM 4.2 mmol/L (3.5-5.1); PROTEIN - SERUM 7.7 g/dL (6.4-8.2); SODIUM 144 mmol/L (136-145); UREA NITROGEN 39 mg/dL (7-18); eGFR NON AFRICAN AMERICAN 40 mL/min (90-120)
[2017-02-15 09:17] LABS: CREATINE KINASE 337 UL (21-232); MAGNESIUM - SERUM 2.2 mg/dL (1.8-2.4); TROPONIN-I 0.028 ng/mL (0.000-0.060)
[2017-02-15 09:32] LABS: LIPASE 11252 U/L (73-393)
[2017-02-15 09:34] LABS: AMYLASE - SERUM 3119 U/L (25-115); CKMB 3.4 U/L (0.0-3.6)
[2017-02-15 09:43] LABS: APPEARANCE CLEAR (CLEAR); BILIRUBIN NEGATIVE (NEGATIVE); COLOR DK YELLOW (YELLOW); GLUCOSE NEGATIVE (NEGATIVE); KETONE NEGATIVE (NEGATIVE); NITRITE NEGATIVE (NEGATIVE); PROTEIN NEGATIVE (NEGATIVE); SPECIFIC GRAVITY 1.015 (1.005-1.020)
--- NOTE | 2017-02-15 12:35 | NUR ---
RECEIVED TO ROOM 2217 VIA STRETCHER FROM ER. A/O X3. AT BEDSIDE. SKIN INTACT WITHOUT REDNESS. DENIES NEEDS.
[2017-02-15] MEDS ORDERED: FISH OIL 1,0001 CA1 PO (12:39)
[2017-02-15 12:40] VITALS: BP 146/76; BMI 42.4
--- NOTE | 2017-02-15 14:00 | NUR ---
BOLUS DOSE ORDERED AND INITIATED. CONTINUES TO SLEEP WITH EYES CLOSED BUT ROUSES TO VERBAL STIMULATION. DR. VALDEZ HERE WELL. NEW ORDERS RECEIVED.
--- NOTE | 2017-02-15 16:00 | NUR ---
REPORTS GOOD PAIN MANAGEMENT WITH USE OF TANGLED YARN SPOOL STRAIGHTENER. FAMILY AT BEDSIDE. DENIES NEEDS.
[2017-02-15 16:56] VITALS: BP 130/41
[2017-02-15 20:00] VITALS: BP 112/52
--- NOTE | 2017-02-15 20:07 | NUR ---
NO CHANGES AT THIS TIME. DENIES NEEDS.
--- NOTE | 2017-02-15 20:15 | NUR ---
ASSESSMENT PER FLOWSHEET. EYES CLOSED RESPIRATIONS WITH EASE AND UNLABORED. AT BEDSIDE IV PATENT LEFT AC OF D5LR AT 50CC'S/HR AUTO SERVICE STATION ATTENDANT OF MORPHINE IN USE WITH SETTINGS AT 1MG Q10MIN W/10MG Q4H L/O. O2 ON 2 L/M PER NC. NO DISTRESS. LEFT AKA OLD NOTED. STATES PT HAS NOT VOIDED SINCE 0730 THIS AM WILL CHECK WITH BLADDER SCANNER.
--- NOTE | 2017-02-15 23:15 | NUR ---
BLADDER SCAN SHOWS 398CC'S URINE IN HIS BLADDER. IN AND OUT CATH DONE 700CC'S YELLOW URINE RETURNED. TELM. SHOWS SR WITH HR 84.
[2017-02-16] VITALS (10 sets, daily range): BP systolic 97–115; BP diastolic 40–66; BMI 42.3
--- NOTE | 2017-02-16 00:29 | NUR ---
EYES CLOSED RESPIRATIONS WITH EASE AND UNLABORED.
--- NOTE | 2017-02-16 02:36 | NUR ---
EYES CLOSED RESPIRATIONS WITH EASE AND UNLABORED.HOB UP 30 DEGREES.
[2017-02-16 05:36] LABS: BASOPHILS 0.1 % (0-2); EOSINOPHILS 0 % (0-7); HEMATOCRIT 40.7 % (42.0-54.0); HEMOGLOBIN 12.7 g/dL (13.5-17.5); IMMATURE GRANULOCYTES 0.2 % (0-5); LYMPHOCYTES 1.9 % (15-50); MCH 33.7 pg (26.0-34.0); MCHC 31.2 g/dL (31.0-37.0); MEAN PLATELET VOLUME 11.3 fL (7.4-10.4); MONOCYTES 5.3 % (2-11); NEUTROPHILS 92.5 % (40-80); PLATELET COUNT 157 10x3/uL (130-400); RBC 3.77 10x6/uL (4.20-6.10); RDW 15.1 % (11.5-14.5); WBC 19.8 10x3/uL (4.8-10.8)
[2017-02-16 05:59] LABS: ALBUMIN 3.2 g/dL (3.4-5.0); ANION GAP 14.3 mmol/L (8-16); BILIRUBIN - TOTAL 0.55 mg/dL (0.2-1.3); CALCIUM 8.2 mg/dL (8.5-10.1); CARBON DIOXIDE 25.5 mmol/L (21.0-32.0); CREATININE - SERUM 1.9 mg/dL (0.6-1.3); MAGNESIUM - SERUM 1.9 mg/dL (1.8-2.4); PHOSPHOROUS 4.1 mg/dL (2.5-4.9); POTASSIUM - SERUM 4.8 mmol/L (3.5-5.1); PROTEIN - SERUM 6.6 g/dL (6.4-8.2)
--- NOTE | 2017-02-16 07:00 | NUR ---
REPORT RECIEVED ASSUMED CARE. PATIENT IN BED WITH IV INTACT. NO COMPLAINTS. CALL LIGHTW ITHIN REACH.
--- NOTE | 2017-02-16 09:55 | NUR ---
SPOKE WITH DR. VALDEZ ABOUT PATIENT NOT VOIDING. NEW ORDERS RECIEVED AND CARRIED OUT.
--- NOTE | 2017-02-16 10:15 | NUR ---
PATIENT YADAV PLACED AT THIS TIME. FAMILY AT BEDSIDE. TOLERATED WITH SMALL AMOUNT OF PAIN. IV INTACT. CALL LIGHT WITHIN REACH.
--- NOTE | 2017-02-16 12:30 | NUR ---
PATIENT IN BED RESTING QUIETLY. IV INTACT. FAMILY AT BEDSIDE. PATIENT BREATHING HARD. SOB AT TIMES. UNABLE TO COUGH UP SECRETIONS IN CHEST. HAS TO BE REMINDED TO DEEP BREATHE AND COUGH.
--- NOTE | 2017-02-16 14:50 | NUR ---
SPOKE WITH DR. ESCOBEDO ABOUT PATIENT. NEW ORDER TO SEND TO ICU.
--- NOTE | 2017-02-16 15:25 | NUR ---
REPORT CALLED TO SABRINA VASQUES IN ICU.
--- NOTE | 2017-02-16 15:55 | NUR ---
REC'D VIA BED AWAKE, CONTINUOUS MOANING, AROUSES TO NAME BEING CALLED LOUDLY, DOES NOT FOLLOW COMMANDS, MMONITOR SHOWING PVCS. AND FIB, ASSESSMENT COMPLETE PER FLOWSHEET, CALLED TO BEDSIDE STATUS UPDATED
--- NOTE | 2017-02-16 18:00 | NUR ---
FAMILY AT BEDSIDE, STATUS UPDATED, VOICES NO NEEDS AT THIS TIME
--- NOTE | 2017-02-16 18:15 | NUR ---
BIPAP INITIATED AT 35% FIO2
--- NOTE | 2017-02-16 19:45 | NUR ---
REPORT RECIEVED. ASSESSMENT COMPELT EPER FLOW SHEET. VSS. PT CONFUSED X4 RESTLESS ATTEMPTING TO REMOVE EQUIPMENT AND BIPAP REORIENTED. REPOSITIONED UP IN BED ON R SIDE. PT CLOSE TO NURSES STATION CALL LIGHT WITHIN REACH BED IN LOWEST POSITION BED ALARM ON ORAL CARE ADM. NEEDS MET. WILL CONTINUE TO MONITOR
--- NOTE | 2017-02-16 20:15 | NUR ---
FAMILY AT BEDSIDE. GIVEN UDPATE.
--- NOTE | 2017-02-16 21:46 | NUR ---
FAMILY LEFT. REPOSITIONED UP IN BED ON BACK ORAL CARE ADM. WILL CONTINUE TO MONITOR
--- NOTE | 2017-02-16 22:30 | NUR ---
PT REPOSITIONED UP IN BED CONFUSED X4 NO NEW CHANGES
--- NOTE | 2017-02-16 23:20 | NUR ---
REASSESSMENT COMPELTE PER FLOW SHEET. VSS. NO NEW CHANGES. WILL CONTINUE TO MONITOR
--- NOTE | 2017-02-16 23:56 | NUR ---
FAMILY GIVEN UPDATE VIA T. NO NEW CHANGES
[2017-02-17] VITALS (26 sets, daily range): BP systolic 90–132; BP diastolic 40–104
--- NOTE | 2017-02-17 01:00 | NUR ---
COMPLETE BB LINEN CHANGE ADM. NO NEW FINDINGS.
--- NOTE | 2017-02-17 02:00 | NUR ---
PT REMOVED ALL EQUIPMENT AND BIPAP REORIENTED. REPOSITIONED UP IN BED. WILL CONTINUE TO MONITOR
--- NOTE | 2017-02-17 03:00 | NUR ---
REASSESSMENT COMPLETE PER FLOW SHEET. NO NEW CHANGES WILL CONTINUE TO MONITOR
[2017-02-17 03:56] LABS: BASOPHILS 0.1 % (0-2); EOSINOPHILS 0 % (0-7); HEMATOCRIT 38.9 % (42.0-54.0); HEMOGLOBIN 11.9 g/dL (13.5-17.5); IMMATURE GRANULOCYTES 0.3 % (0-5); LYMPHOCYTES 2.3 % (15-50); MCH 33.1 pg (26.0-34.0); MCHC 30.6 g/dL (31.0-37.0); MCV 108.1 fL (80.0-100.0); MEAN PLATELET VOLUME 11.4 fL (7.4-10.4); MONOCYTES 5.3 % (2-11); PLATELET COUNT 136 10x3/uL (130-400); RDW 15.3 % (11.5-14.5); WBC 19.3 10x3/uL (4.8-10.8)
[2017-02-17 04:22] LABS: ANION GAP 14.8 mmol/L (8-16); BILIRUBIN - TOTAL 0.9 mg/dL (0.2-1.3); CALCIUM 8.3 mg/dL (8.5-10.1); CARBON DIOXIDE 25.8 mmol/L (21.0-32.0); MAGNESIUM - SERUM 1.9 mg/dL (1.8-2.4); PHOSPHOROUS 3.7 mg/dL (2.5-4.9); POTASSIUM - SERUM 4.6 mmol/L (3.5-5.1); PROTEIN - SERUM 6.6 g/dL (6.4-8.2)
[2017-02-17 04:24] LABS: CREATININE - SERUM 2.5 mg/dL (0.6-1.3)
--- NOTE | 2017-02-17 05:00 | NUR ---
FAMILY AT BEDSIDE. GIVEN UPDATE. DENIES FURTHER NEEDS. VSS. NO NEW CHANGES. WILLCONTINUE TO MONITOR
--- NOTE | 2017-02-17 11:23 | NUR ---
* Is the patient Alert and Oriented? Yes 0 * How many steps to enter\exit or inside your home? Ramp 0 * PCP Dr. Martins 0 * [facility] in [place] 0 * Preadmission Environment Home with Family 0 * ADLs Partial Dependent 0 * Partial ADLs (Assistance needed) Ambulation 0 * Equipment Rolling Walker Shower Chair Wheelchair 0 * Other Equipment Slide board, prosthetic leg 0 * List name and contact numbers for known caregivers / representatives who currently or will assist patient after discharge: Spouse - Bessie [phone] 0 * Additional services required to return to the preadmission environment? Yes 0 * Can the patient safely return to the preadmission environment? Yes 0 * Has this patient been hospitalized within the prior 30 days at any hospital? No Patient Name: OLIVIER HAYES Admission Status: ER Accout number: [id number] Admission Date: 02-15-2017 : 1945 Admission Diagnosis:UNSPECIFIED ABDOMINAL PAIN Attending: FERNANDO VALDEZ Current LOS: 2 Anticipated DC Date: 02-17-2017 Planned Disposition: Home with Home Health Primary Insurance: [facility] Discharge Planning Comments: Patient currently on Bipap. Spoke with spouse, Bessie, via telephone to assess dc plans/needs. She reports patient lives at home with her. She states they have a ramp to enter the home. She states he has a prosthetic leg & walker, but does not use them - he uses WC for all mobility. She states he is able to transfer him self & do his own ADL's. He has been to [facility] in the past for skilled rehab and has had home health services in the past with [facility]. At ar, she would like for patient to be set up with home health again, but they are open to returning to [facility] if necessary. CM will follow & assist as needed. Sketch Artist: Eileen Voss
--- NOTE | 2017-02-17 13:12 | NUR ---
PT CARE ASSUMED, PT REPOSITIONED, TEMP CHECKED AXILLARY AND RECTALLY 102.6 F, DR ESCOBEDO MADE AWARE
--- NOTE | 2017-02-17 13:23 | NUR ---
LILY INFORMATION ASSURANCE MANAGER PAGED RENAL ABOUT CONSULT
--- NOTE | 2017-02-17 13:39 | NUR ---
PATIENT EYES OPEN DOES MAKE EYE CONTACT. WILL ANSWER YEA FOR QUESTION DOES SAY NO OR GIVEN A VERBAL RESPONSE SUCH WHERE ARE YOU HURTING, WILL JUST LOOKE AT NURSE.. BI PAP MASK IN PLACE AT 35% OXYGEN. RESTLESS MOVING ALL EX TREMITIES. LEFT AKA. HANDS RESTRAINT TO KEEP BI PAP MACHINE ON. AND IV IN RIGHT HAND NO REDNESS OR SWELLING NOTED D5LR AT 50 ML HOUR INFUSING. MONITOR SR WITH 1ST DEGREE BLOCK WITH FREQ PAC. ABD LARGE DISTENDED LOOKING. PATIENT DOES GRIMACE WITH PALPATATION. dR. VALDEZ STATES IT IS LESS TODAY THAN YESTERDAY. BOWEL SOUNDS HYPOACTIVE. YADAV CATH PATENT FAMILY HERE QUESTIONS ANSWERED
--- NOTE | 2017-02-17 14:18 | NUR ---
PT REPOSITIONED OFF OF RIGHT SIDE HE CONTINUALLY PULLS SELF TO RIGHT SIDE, DOES NOT ANSWER QUESTIONS, GRUNTS, VSS, BED BATH AND PARTIAL LINEN CHANGE COMPLETED, GRIMACING HAS STOPPED AFTER PRN MORPHINE ADMINISTERED, WILL CONTINUE TO MONITOR
--- NOTE | 2017-02-17 15:56 | NUR ---
PAGED DR LEVI FOR CONTINUED ELEVATED TEMP OF 102.3
--- NOTE | 2017-02-17 16:15 | NUR ---
SPOKE WITH DR LEVI, NEW ORDERS FOR IV TYLENOL PT IS NPO, SPOKE WITH DAUGHTER WHO IS AT BEDSIDE FOR VISITATION, STATES PT IS ON WAY AND WILL SIGN CONSENTS
--- NOTE | 2017-02-17 17:00 | NUR ---
PT REPOSITIONED VSS NO SIGNS OF PAIN WILL CONTINUE TO MONTIOR
--- NOTE | 2017-02-17 19:00 | NUR ---
Received patient resting in bed with eyes open laying in bed, assessment completed per flowsheet. Patient disoriented/confused to time/place/situation, incomprehensible responses. Eyes PERRLA @ 4mm with brisk response, sclera is slight yellowed. S1/S2 noted Sinus Tach with rare PVC on telemetry with HR 116. Breathing is shallow on 6L via NC with O2 sat 94%, crackles noted bilateral upper and mid with diminished lower. Abdomen is round and soft with bowel sounds hypoactive x4, non-tender. Torre secured in palce, concentrated mookie urine noted. Patient L AKA, remaining pulses palpable with cap refill < 3 sec. Unable to assess pain at this time, patient repositioned for comfort. No further needs at this time, all VSS and will continue to monitor.
--- NOTE | 2017-02-17 21:00 | NUR ---
Patient family at bedside, all questions answered to satisfaction with family updated on condition. Oral care provided, all HS meds given without difficulty. No further needs at this time, all VSS and will continue to monitor.
--- NOTE | 2017-02-17 23:00 | NUR ---
Reassessment completed per flowsheet, patient resting in bed with eyes open making unintelligible sounds. Patient disoriented/confused to time/place/situation. S1/S2 noted Sinus Tach with elevated T wave and rare PVC with HR 118. Breathing is shallow on 6L via NC with O2 sat 97%, crackles noted bilateral upper and mid with diminished lower. Abdomen is distended and firm with bowel sounds hypoactive x4, non-tender with no flatus. L lower AKA, remaining pulses palpable with cap refill < 3 sec. Full ROM remaining extremities with skin warm/dry to touch. Unable to assess pain at this time, repositioned for comfort. No further needs at this time, all VSS and will continue to monitor.
[2017-02-18] VITALS (68 sets, daily range): BP systolic 48–129; BP diastolic 28–95
--- NOTE | 2017-02-18 01:00 | NUR ---
Patient laying in bed with eyes closed, unintelligible sounds. Patient repositioned for comfort, unable to assess pain at this time. All VSS and will continue to monitor.
--- NOTE | 2017-02-18 03:00 | NUR ---
Reassessment completed per flowsheet, patient resting in bed with eyes closed. Patient disoriented/confused to time/place/situation. S1/S2 noted Sinus Tach with PVC and elevated T wave on telemetry with HR 110. Breathing is shallow on 6L via NC with O2 sat 97%, crackles noted bilateral upper and mid with diminished lower. L lower AKA, remaining pulses palapble with cap refill < 3 sec. Unable to assess pain, repositioned for comfort. No further needs at this time, all VSS and will continue to monitor.
[2017-02-18 04:27] LABS: BASOPHILS 0 % (0-2); EOSINOPHILS 0 % (0-7); HEMATOCRIT 39.2 % (42.0-54.0); HEMOGLOBIN 12.2 g/dL (13.5-17.5); IMMATURE GRANULOCYTES 0.4 % (0-5); LYMPHOCYTES 3.4 % (15-50); MCH 33.3 pg (26.0-34.0); MCHC 31.1 g/dL (31.0-37.0); MCV 107.1 fL (80.0-100.0); MEAN PLATELET VOLUME 11.9 fL (7.4-10.4); MONOCYTES 5.6 % (2-11); NEUTROPHILS 90.6 % (40-80); PLATELET COUNT 138 10x3/uL (130-400); RBC 3.66 10x6/uL (4.20-6.10); RDW 15.4 % (11.5-14.5); WBC 16.9 10x3/uL (4.8-10.8)
[2017-02-18 04:41] LABS: ALBUMIN 2.6 g/dL (3.4-5.0); ANION GAP 13.3 mmol/L (8-16); BILIRUBIN - DIRECT 0.47 mg/dL (0.00-0.30); BILIRUBIN - INDIRECT 0.46 mg/dL (0.00-1.00); BILIRUBIN - TOTAL 0.93 mg/dL (0.2-1.3); CALCIUM 8.6 mg/dL (8.5-10.1); CARBON DIOXIDE 28.1 mmol/L (21.0-32.0); INR 1.42 (0.85-1.17); MAGNESIUM - SERUM 2.2 mg/dL (1.8-2.4); POTASSIUM - SERUM 4.4 mmol/L (3.5-5.1); PROTEIN - SERUM 6.5 g/dL (6.4-8.2); PROTIME 17.3 SECONDS (11.6-15.0)
[2017-02-18 04:47] LABS: CREATININE - SERUM 1.7 mg/dL (0.6-1.3)
--- NOTE | 2017-02-18 05:00 | NUR ---
AM Labs collected without difficulty, will follow protocol when resulted. Patient repositioned for comfort, no further needs at this time. Alll VSS and will continue to monitor.
--- NOTE | 2017-02-18 08:03 | NUR ---
ENTERED PT ROOM APPROX 720, PT WITH AGONAL BREATHING, SPO2 IN 70S,CALLED AND SHE STATED SHE DOES WANT HIM INTUBATED. NEW ORDERS FOR INTUBATION WITH BILAT SOFT WRIST RESTRAINTS, DR PADILLA FROM [facility] TO [facility],RT IN ROOM FOR ABGS, BEGAN BAGGING PT AT 0730, DR PADILLA IN ROOM APPROX 0740 AND INTUBATED AT 0750, WRIST RESTRAINTS APPLIED AT 0750, DR LEVI AWARE, DR ESCOBEDO AWARE AND GAVE VENT ORDERS, DR COURTNEY BYRD.
--- NOTE | 2017-02-18 09:03 | NUR ---
PT ETT 8.0, 24 AT LIPLINE, RATE OF 16, FIO2 60%, SPO2 96%, WILL CONTINUE TO MONITOR
--- NOTE | 2017-02-18 09:12 | NUR ---
PAGED DR ESCOBEDO ABOUT PT LOW BP
--- NOTE | 2017-02-18 09:50 | NUR ---
PT BP CONTINUES TO DEOP, 54/33 MAP OF 37, DR VALDEZ AND GREGG IN ROOM, ORDERS FOR LEVOPHED TITRATE FOR BP, FAMILY IN ROOM AND AWARE OF PT SITUATION BUT WANT TO PROCEED AND CONTIUE WITH FILL CODE STATUS
--- NOTE | 2017-02-18 10:03 | NUR ---
PAGED DR LEVI AND CONSENTS SIGNED FOR CENTRAL LINE PLACEMENT
--- NOTE | 2017-02-18 10:20 | NUR ---
TITRATING LEVOPHED UP TO 30MCG, BP STABLE AT THIS TIME, BITING TUBE, PROPOFOL TITRATED UP TO 20MCG
--- NOTE | 2017-02-18 10:23 | NUR ---
NUTRITION F/U CHART REVIEWED. SPOKE WITH NURSING & DR ESCOBEDO. POSSIBLE TUBE FEEDS TOMORROW IF AMYLASE AND LIPASE CONTINUE TO COME DOWN. CURRENTLY INTUBATED. DIPRIVAN @ 12.8 CC/HR PROVIDING [address] FOLLOWING
--- NOTE | 2017-02-18 11:15 | NUR ---
PROPOFOL AT 25MCG, PT APPEARS CALM AND IS NO LONGER SHAKING HEAD OR CHEWING ETT, ETT IN PLACE AT 24, BP REMAINS STABLE, LEVOPHED TITRATED DOWN TO 28MCG, REPOSITIONED, NO SIGNS OF PAIN, WILL CONTINUE TO MONITOR
--- NOTE | 2017-02-18 12:45 | NUR ---
CENTRAL LINE INSERTED BY DR LEVI TO LEFT SUBCLAVIAN, XRAY TAKEN TO CONFIRM PLACEMENT
--- NOTE | 2017-02-18 13:47 | NUR ---
ATTEMPTED TO TITRATE LEVOPHED DOWN WITH NO SUCCESS, SYSTOLIC BP DROPPING INTO 60S IF LOWERED AT ALL FROM 30MCG, CURRENTLY 90/54
--- NOTE | 2017-02-18 15:15 | NUR ---
SPOKE WITH DR ESCOBEDO ABOUT BP CONTINUALLY DROPPING DESPITE LOWERING PROPOFOL AND LEVOPHED AT MAX DOSE, NEW ORDERS FOR VASOPRESSIN IF NEEDED, BP CURRENLY HOLDING AT 96/51, PRN TYLENOL ADMINISTERED FOR TEMP INCREASE TO 103.0 F. NO SIGNS OF PAIN, WILL CONTIN UE TO MONITOR
--- NOTE | 2017-02-18 16:38 | NUR ---
PT REPOSITIONED, ORAL CARE PROVIDED, LITER BOLUS OF NS PER RENAL INFUSING AND ALMOST COMPLETE, BP SYSTOLIC 108, NO SIGNS OF PAIN, FAMILY AT BEDSIDE FOR VISITATION, ALL QUESTIONS ANSWERED, WILL CONTINUE TO MONITOR
--- NOTE | 2017-02-18 19:05 | NUR ---
Received patient sedated in bed on vent, assessment completed per flowsheet. Patient sedated, withdraws from pain stimuli and open eyes to pain. Eyes PERRLA @ 4mm with brisk response, sclera is yellowed. ETT 8.0 @ 24cm secured, tongue is red and raw. S1/S2 noted Sinus Tach with PVC on telemetry with HR 104. Vent settings A/C R-16 V-600 50% P-5 with O2 sat 98%, crackles noted bilateral upper and mid with diminished lower. Abdomen is slightly distended and firm with bowel sounds hypoactive x4, no flatus noted. Torre secured in place, slight mookie color noted. L lower AKA, remaining pulses palpable with cap refill < 3 sec. L subclavian CVL dressing CDI, patent with fluids infusing. Unable to assess pain at this time, oral care/suctioning provided. Patient repositioned for comfort, no further needs at this time and will continue to monitor.
--- NOTE | 2017-02-18 21:00 | NUR ---
Patient sedated in bed on vent, vent settings unchanged from assessment. Oral/Care suctioning provided, patient repositioned for comfort. Patient skin pale with O2 sat 98%. No further needs at this time, all VSS and will continue to monitor.
--- NOTE | 2017-02-18 23:00 | NUR ---
Reassessment completed per flowsheet, patient sedated in bed on vent. Opens eyes and withdraws from pain stimuli. Eyes PERRLA @ 4mm with brisk response, sclera is yellowed. S1/S2 noted Sinus Tach with PVC on telemetry with HR 107. Vent settings unchanged from previous, Crackles and expiratory wheeze noted bilateral upper and mid with diminished lower. L lower AKA, remianing pulses palpable with cap refill < 3 sec. Oral care/suctioning provided, patient repositioned for comfort. No further needs at this time, all VSS and will continue to monitor.
[2017-02-19] VITALS (94 sets, daily range): BP systolic 71–121; BP diastolic 40–89
--- NOTE | 2017-02-19 01:00 | NUR ---
Patient sedated in bed on vent, oral care/suctioning provided. Patient repositioned for comfort. Crackles and expiratory wheeze noted bilateral upper and mid with diminished lower. No further needs at this time, all VSS and will continue to monitor.
--- NOTE | 2017-02-19 02:55 | NUR ---
Reassessment completed per flowsheet, patient sedated in bed with eyes closed. Patient opens eyes and withdraws from pain stimuli, does not follow commands. Eyes PERRLA @ 4mm with brisk response, sclera is yellowed. S1/S2 noted Sinus Tach with PVC on telemetry with HR 105. Vent settings unchanged from previous, crackles and expiratory wheeze noted bilateral upper and mid with diminished lower. L lower AKA, all remaining pulses palpable with cap refill < 3 sec. Oral care/suctioning provided, patient repositioned for comfort. No further needs at this time, all VSS and will continue to monitor.
[2017-02-19 04:16] LABS: BASOPHILS 0 % (0-2); EOSINOPHILS 0 % (0-7); HEMATOCRIT 39.2 % (42.0-54.0); HEMOGLOBIN 12.2 g/dL (13.5-17.5); IMMATURE GRANULOCYTES 0.5 % (0-5); LYMPHOCYTES 4.9 % (15-50); MCH 33.2 pg (26.0-34.0); MCHC 31.1 g/dL (31.0-37.0); MCV 106.8 fL (80.0-100.0); MEAN PLATELET VOLUME 11.4 fL (7.4-10.4); MONOCYTES 5.7 % (2-11); NEUTROPHILS 88.9 % (40-80); PLATELET COUNT 160 10x3/uL (130-400); RBC 3.67 10x6/uL (4.20-6.10); RDW 15.4 % (11.5-14.5); WBC 21.4 10x3/uL (4.8-10.8)
[2017-02-19 04:32] LABS: ALBUMIN 2.1 g/dL (3.4-5.0); ANION GAP 13.2 mmol/L (8-16); BILIRUBIN - TOTAL 1.15 mg/dL (0.2-1.3); CALCIUM 7.9 mg/dL (8.5-10.1); CARBON DIOXIDE 24.8 mmol/L (21.0-32.0); CREATININE - SERUM 1.6 mg/dL (0.6-1.3); PROTEIN - SERUM 6.2 g/dL (6.4-8.2)
--- NOTE | 2017-02-19 05:00 | NUR ---
AM labs collected without difficulty, patient family at bedside. All questions answered to satisfaction, no further needs at this time. Oral care/suctioning provided, patient repositioned for comfort. All VSS and will continue to monitor.
--- NOTE | 2017-02-19 07:15 | NUR ---
PT CONTINUES SEDATED ON VENT, VSS, ON LEVOPHED 30MCG/MIN, D5 1/2NS AT 100ML/HR AND DIPROVAN AT 15MCG/KG/MIN, BP SYSTOLIC IN 100-110S, ETT 24IN AT LIPLINE, VENT [id number] RATE 16 FIO2 50% PEEP 5, PIV TO RIGHT HAND AND LEFT UPPER ARM FLUSH WELL, SALINE LOCKED, LEFT SUBCLAVIAN CVL DRESSING CDI, FLUSHES WELL, CVP 11, CATHETER DRAINING CONCENTRATED URINE, REPOSITIONED, NO SIGNS OF PAIN, WILL CONTINUE TO MONITOR
--- NOTE | 2017-02-19 09:19 | NUR ---
16 FR OGT INSERTED WITHOUT DIFFICULTY, PLACEMENT CONFIRMED VIA AUSCULTATION, FLUSHES WELL, MILK OF MAG ADMINISTERED, MONUMENT CARVER AWARE OF CONSULT, BP STABLE, ABLE TO TITRATE LEVOPHED DOWN TO 27MCG/MIN. FAMILY AT BEDSIDE FOR VISITATION AND AWARE. WILL CONTINUE TO MONITOR
--- NOTE | 2017-02-19 10:04 | NUR ---
TUBE FEEDINGS STARTED PER DIETARY ORDERS
--- NOTE | 2017-02-19 10:25 | NUR ---
CONSENTS SIGNED FOR BRONCHOSCOPY
--- NOTE | 2017-02-19 11:00 | NUR ---
BRONCHOSCOPY COMPLETED, PT TOLERATED WELL, TUBE FEEDINGS RESUMED, VSS, NO SIGNS OF PAIN, BED BATH AND LINEN CHANGE PROVIDED, ORAL CARE AND SUCTIONING PROVIDED, REPOSITIIONED, WILL CONTINUE TO MONITOR
--- NOTE | 2017-02-19 13:04 | NUR ---
SPOKE WITH PT AND DAUGHTERS UPDATED ON LEVOPHED, PROPOFOL, OGT AND VENT SETTINGS, VSS, NO SIGNS OF PAIN, WILL CONTINUE TO MONITOR
--- NOTE | 2017-02-19 14:50 | NUR ---
PT REPOSITIONED, VSS, TITRATING DOWN ON LEVOPHED, CURRENLTY AT 20MCG/MIN, NO SIGNS OF PAIN, SEEN BY DR VALDEZ AND DR BRIGGS, WILL CONTINUE TO MONITOR
--- NOTE | 2017-02-19 15:00 | NUR ---
PT HEART RATE BETWEEN NSR, SINUS TACH AND AFLUTTER WITH FREQUENT PVCS, ALL DRS MADE AWARE.
--- NOTE | 2017-02-19 16:54 | NUR ---
PT REPOSITIONED, SUCTIONING AND ORAL CARE PROVIDED, NO SIGNS OF PAIN, LEVOPHED AT 15MCG/MIN PROPOFOL AT 15MCG/KG/MIN, D5W AT 50ML/HR, VANCOMYCIN INFUSING, TUBE FEEDS AT 20ML/HR, 10ML RESIDUAL, BP 108/53, NO SIGNS OF PAIN, WILL CONTINUE TO MONITOR
--- NOTE | 2017-02-19 18:11 | NUR ---
PRESSURE DROPPING INTO 80S SYSTOLIC, TITRATED LEVOPHED UP TO 20MCG/MIN
--- NOTE | 2017-02-19 19:00 | NUR ---
REPORT RECIEVED, SHIFT ASSESSMENT COMPLETE, PLEASE SEE FLOW SHEETS FOR DETAILS. PT ON VENT, OGT TUBE IN PLACE WITH FEEDING AT 20 ML/HR. PT ON SEDATION AND DOES MOVE HEAD AROUND SOME TO SOUND OR TOUCH BUT DOESNOT OPEN EYES OR FOLLOW COMMANDS. LEFT AKA NOTED AND FEMORAL PULSE PALPABLE, ALL OTHER PPP. LUNGS WITH CRACKLES THROUGHOUT. BS ACTIVE X4. YADAV IN PLACE AND DRAINING VIA GRAVITY YEILDING CONCENTRATED URINE. IRREGULAR HEART SOUNDS NOTED, A FLUTTER @ RATE OF 98, QUICKLY CONVERTED TO UNCONTROLLED A-FIB WHILE WATCHING MONITOR, BBB AND PVC'S ALSO SEEN ON MONITOR. ORAL CARE AND TURNING PROVIDED. BED LOW AND LOCKED, CALL LIGHT IN REACH. WILL CPOC.
--- NOTE | 2017-02-19 21:00 | NUR ---
ORAL CARE AND TURNING PROVIDED. VSS, BED LOW AND LOCKED, CALL LIGHT IN REACH. WILL CPOC.
--- NOTE | 2017-02-19 22:52 | NUR ---
REASSESSMENT COMPLETE, PLEASE SEE FLOW SHEETS FOR DETAILS. ORAL CARE AND TURNING PROVIDED. TITRATING PROPOFOL AND LEVOPHED FOR SEDATION AND BP CONTROL PER ORDERS. NO CHANGES FROM PREVIOUS ASSESSMENT NOTED. RESTRAINTS CHECKED AND RETIED WITH QUICK RELEASE KNOTS. VSS, BED LOW AND LOCKED, WILL CPOC.
[2017-02-20] VITALS (97 sets, daily range): BP systolic 70–128; BP diastolic 38–82
--- NOTE | 2017-02-20 00:59 | NUR ---
ORAL CARE AND TURNING PROVIDED. BED LOW AND LOCKED, VSS, WILL CPOC.
--- NOTE | 2017-02-20 03:00 | NUR ---
REASSESSMENT COMPLETE, PLEASE SEE FLOW SHEETS FOR DETAILS. NO CHANGES FROM PREVIOUS ASSESSMENT NOTED. RESTRAINTS CHECKED AND RETIED WITH QUICK RELEASE KNOTS. VSS, BED LOW AND LOCKED, WILL CPOC.
[2017-02-20 03:56] LABS: BASOPHILS 0 % (0-2); EOSINOPHILS 0 % (0-7); HEMATOCRIT 37.5 % (42.0-54.0); HEMOGLOBIN 11.6 g/dL (13.5-17.5); LYMPHOCYTES 7.3 % (15-50); MCHC 30.9 g/dL (31.0-37.0); MCV 106.5 fL (80.0-100.0); MEAN PLATELET VOLUME 11.2 fL (7.4-10.4); MONOCYTES 4.1 % (2-11); NEUTROPHILS 87.6 % (40-80); PLATELET COUNT 145 10x3/uL (130-400); RBC 3.52 10x6/uL (4.20-6.10); WBC 20.1 10x3/uL (4.8-10.8)
[2017-02-20 04:07] LABS: ALBUMIN 1.7 g/dL (3.4-5.0); ANION GAP 11.2 mmol/L (8-16); BILIRUBIN - TOTAL 0.6 mg/dL (0.2-1.3); CALCIUM 7.4 mg/dL (8.5-10.1); CARBON DIOXIDE 25.1 mmol/L (21.0-32.0); CREATININE - SERUM 1.4 mg/dL (0.6-1.3); MAGNESIUM - SERUM 2.1 mg/dL (1.8-2.4); POTASSIUM - SERUM 4.3 mmol/L (3.5-5.1); PROTEIN - SERUM 5.6 g/dL (6.4-8.2)
--- NOTE | 2017-02-20 05:00 | NUR ---
ORAL CARE AND TURNING PROVIDED. VSS, BED LOW AND LOCKED, WILL CPOC.
--- NOTE | 2017-02-20 08:59 | NUR ---
LYING IN BED, PT IS SEDATED TO COMFORT PER ORDERING SEDATION PARAMETERS. PT ALSO ON LEVOFED FOR HYPOTENSION, TITRATED TO ORDER. NO ACUTE DISTRESS NOTED. PT TURNED Q2H. FAMILY AT BEDSIDE. WILL CONTINUE PLAN OF CARE.
--- NOTE | 2017-02-20 10:00 | NUR ---
NO CHANGE, TURNED Q2H. PT CALM. WILL CONTINUE PLAN OF CARE.
--- NOTE | 2017-02-20 11:48 | NUR ---
PT TEMP 101.9. PER DR ESCOBEDO, IF TEMPERATURE IS CONSISTENTLY HIGH THEN OBTAIN 2 BLOOD CULTURES.
--- NOTE | 2017-02-20 13:57 | NUR ---
PERIPHERAL IV TO LT UPPER ARM AND RT HAND WHICH ARE NO LONGER IN USE HAVE BEEN DC, CATHETER TIP INTACT. CVL TO LT SUBCLAVIAN FLUSHES WELL. NO ACUTE DISTRESS NOTED. WILL CONTINUE PLAN OF CARE.
--- NOTE | 2017-02-20 15:39 | NUR ---
TEMP RECHECK AT THIS TIME 103.2 AFTER RECIEVING TYLENOL EARLIER TODAY. PER DR ESCOBEDO ORDERS WILL ORDER BLOOD CULTURES X 2. ALSO WILL APPLY ICE PACKS TO GROIN AND AXILLARY AREAS. ROOM TEMPERATURE DECREASED AND BLANKETS ARE REMOVED. WILL CONTINUE PLAN OF CARE.
--- NOTE | 2017-02-20 16:58 | NUR ---
TEMPERATURE RECHECK AT THIS TIME NOTED AT 101.9.
--- NOTE | 2017-02-20 19:46 | NUR ---
REPORT RECIEVED, SHIFT ASSESSMENT COMPLETE, PLEASE SEE FLOW SHEETS FOR DETAILS. PT ON VENT, OGT TUBE IN PLACE WITH FEEDING AT 20 ML/HR. PT ON SEDATION AND DOES MOVE HEAD AROUND SOME TO SOUND OR TOUCH HE DOES OPEN EYES, DOES NOT FOLLOW COMMANDS. LEFT AKA NOTED AND FEMORAL PULSE PALPABLE, ALL OTHER PPP. LUNGS WITH CRACKLES THROUGHOUT. BS ACTIVE X4. YADAV IN PLACE AND DRAINING VIA GRAVITY YEILDING CONCENTRATED URINE. IRREGULAR HEART SOUNDS NOTED, A FLUTTER @ RATE OF 96, QUICKLY CONVERTED TO UNCONTROLLED A-FIB WHILE WATCHING MONITOR, BBB AND PVC'S ALSO SEEN ON MONITOR, PT THEN CONVERTED BACK TO A-FLUTTER. WATCHING CLOSELY, ON LEVOPHED FOR BP CONTROL. ORAL CARE AND TURNING PROVIDED. BED LOW AND LOCKED, VSS, WILL CPOC.
[2017-02-20 20:07] LABS: AFB SPECIMEN PROCESSING Concentration (())
--- NOTE | 2017-02-20 20:43 | NUR ---
UPDATED FAMILY, ALL QUESTIONS ANSWERED TO BEST OF ABILITY. NO OTHER QUESTIONS ATT.
--- NOTE | 2017-02-20 20:58 | NUR ---
CHANGED OUT TUBE FEED BAG WITH NEW BAG. ORAL CARE AND TURNING PROVIDED. BED LOW AND LOCKED, RESTRAINTS CHECKED, RETIED WITH QUICK RELEASE KNOTS. VSS, WILL CPOC.
--- NOTE | 2017-02-20 23:00 | NUR ---
REASSESSMENT COMPLETE, PLEASE SEE FLOW SHEETS FOR DETAILS. YADAV CARE DONE. PT ON VENT, OGT TUBE IN PLACE WITH FEEDING AT 20 ML/HR. PT ON LIGHT SEDATION DOES MOVE HEAD AROUND SOME TO SOUND OR TOUCH HE DOES OPEN EYES, THOUGH HE DOES NOT FOLLOW COMMANDS. LEFT AKA NOTED AND FEMORAL PULSE PALPABLE, ALL OTHER PPP. LUNGS WITH CRACKLES THROUGHOUT. BS ACTIVE X4. YADAV IN PLACE AND DRAINING VIA GRAVITY YEILDING CONCENTRATED URINE. IRREGULAR HEART SOUNDS NOTED, A-FLUTTER @ RATE OF 120 NOTED. MONITORING HR AND BP CLOSELY, STILL ON LEVOPHED. ORAL CARE AND TURNING PROVIDED. BED LOW AND LOCKED. WILL CPOC.
[2017-02-21] VITALS (93 sets, daily range): BP systolic 73–124; BP diastolic 37–92
--- NOTE | 2017-02-21 01:00 | NUR ---
ORAL CARE AND TURNING PROVIDED. VSS, BED LOW AND LOCKED, RESTRAINTS CHECKED AND RETIED WITH QUICK RELEASE KNOTS. WILL CPOC.
--- NOTE | 2017-02-21 02:54 | NUR ---
REASSESSMENT COMPLETE, PLEASE SEE FLOW SHEETS FOR DETAILS. PT ON VENT, OGT TUBE IN PLACE WITH FEEDING AT 20 ML/HR. PT ON LIGHT SEDATION DOES MOVE HEAD AROUND SOME TO SOUND OR TOUCH HE DOES OPEN EYES, THOUGH HE DOES NOT FOLLOW COMMANDS. LEFT AKA NOTED AND FEMORAL PULSE PALPABLE, ALL OTHER PPP. LUNGS WITH CRACKLES THROUGHOUT. BS ACTIVE X4. YADAV IN PLACE AND DRAINING VIA GRAVITY YEILDING CONCENTRATED URINE. IRREGULAR HEART SOUNDS NOTED, A-FLUTTER @ RATE OF 95 NOTED. MONITORING HR AND BP CLOSELY, STILL ON LEVOPHED. ORAL CARE AND TURNING PROVIDED. BED LOW AND LOCKED. WILL CPOC.
[2017-02-21 04:31] LABS: BASOPHILS 0.1 % (0-2); EOSINOPHILS 0.2 % (0-7); HEMATOCRIT 37.2 % (42.0-54.0); HEMOGLOBIN 11.4 g/dL (13.5-17.5); IMMATURE GRANULOCYTES 1.7 % (0-5); LYMPHOCYTES 5.8 % (15-50); MCH 32.5 pg (26.0-34.0); MCHC 30.6 g/dL (31.0-37.0); MEAN PLATELET VOLUME 11.8 fL (7.4-10.4); MONOCYTES 3.7 % (2-11); NEUTROPHILS 88.5 % (40-80); PLATELET COUNT 150 10x3/uL (130-400); RBC 3.51 10x6/uL (4.20-6.10); RDW 16.2 % (11.5-14.5); WBC 17.5 10x3/uL (4.8-10.8)
[2017-02-21 04:56] LABS: ALBUMIN 1.7 g/dL (3.4-5.0); BILIRUBIN - TOTAL 0.54 mg/dL (0.2-1.3); CALCIUM 7.6 mg/dL (8.5-10.1); CARBON DIOXIDE 23.4 mmol/L (21.0-32.0); CREATININE - SERUM 1.2 mg/dL (0.6-1.3); MAGNESIUM - SERUM 2.4 mg/dL (1.8-2.4); POTASSIUM - SERUM 4.5 mmol/L (3.5-5.1); PROTEIN - SERUM 5.7 g/dL (6.4-8.2); VANCOMYCIN - TROUGH 20.5 ug/mL (10.0-20.0)
[2017-02-21 04:58] LABS: ANION GAP 13.1 mmol/L (8-16)
--- NOTE | 2017-02-21 07:20 | NUR ---
ASSESSMENT COMPLETE. TUBE FEEDING RESIDUAL 5CC. NO ACUTE DISTRESS NOTED.
--- NOTE | 2017-02-21 19:00 | NUR ---
REPORT RECIEVED, SHIFT ASSESSMENT COMPLETE, PLEASE SEE FLOW SHEETS FOR DETAILS. AWAKE AND ALERT, ON SEDATION AND DOES NOT MOVE EXTREMETIES. LOOKS AROUND AND RESPONDS TO YES AND NO QUESTIONS. LUNGS WITH CRACKELS THROUGHOUT AND DIMINISHED IN LOWER LOBES. ON VENTILATOR, PLEASE SEE FLOW SHEETS FOR SETTINGS. IRREGULAR HEART SOUNDS, A-FLUTTER NOTED ON MONITOR, RATE OF 98. PPP WITH LEFT FEMORAL PULSE PALP. ON LEVOPHED FOR BP CONTROL, TITRATING PER ORDERS. BS ACTIVE X4, ABD DISTENDED AND SOFT, OGT WITH FEEDINGS OF VITAL 1.0 @ 20, RESIDUAL CHECK AND RETURNED 8ML. YADAV IN PLACE, DRAINING VIA GRAVITY AND YEILDS CONCENTRATED URINE. PUPILS REACTIVE TO LIGHT AND BRISK, UNEQUAL IN SIZE. ORAL CARE AND TURNING PROVIDED. BED LOW AND LOCKED, VSS, WILL CPOC.
--- NOTE | 2017-02-21 21:00 | NUR ---
ORAL CARE AND TURNING PROVIDED. FAMILY UPDATE GIVEN. VSS, BED LOW AND LOCKED, RESTRAINTS CHECKED AND RETIED WITH QUICK RELEASE KNOTS. WILL CPOC.
--- NOTE | 2017-02-21 23:13 | NUR ---
REASSESSMENT COMPLETE, PLEASE SEE FLOW SHEETS FOR DETAILS. AWAKE AND ALERT, ON SEDATION AND DOES NOT MOVE EXTREMETIES. LOOKS AROUND AND RESPONDS TO YES AND NO QUESTIONS. LUNGS WITH CRACKELS THROUGHOUT AND DIMINISHED IN LOWER LOBES. ON VENTILATOR, PLEASE SEE FLOW SHEETS FOR SETTINGS. IRREGULAR HEART SOUNDS, A-FLUTTER NOTED ON MONITOR, RATE OF 108. PPP WITH LEFT FEMORAL PULSE PALP. ON LEVOPHED FOR BP CONTROL, TITRATING PER ORDERS. BS HYPO X4, ABD DISTENDED AND SOFT, OGT WITH FEEDINGS OF VITAL 1.0 @ 20. YADAV IN PLACE, DRAINING VIA GRAVITY AND YEILDS CONCENTRATED URINE. PUPILS REACTIVE TO LIGHT AND BRISK, UNEQUAL IN SIZE. YADAV CARE PROVIDED. ORAL CARE AND TURNING PROVIDED. BED LOW AND LOCKED, VSS, WILL CPOC.
[2017-02-22] VITALS (90 sets, daily range): BP systolic 70–130; BP diastolic 35–80
--- NOTE | 2017-02-22 01:00 | NUR ---
ORAL CARE AND TURNING PROVIDED. TITRATING LEVOPHED PER ORDERS FOR BP. ALL OTHER VSS ATT, BED LOW AND LOCKED, WILL CPOC.
--- NOTE | 2017-02-22 02:56 | NUR ---
REASSESSMENT COMPLETE, PLEASE SEE FLOW SHEETS FOR DETAILS. AWAKE AND ALERT, ON SEDATION AND DOES NOT MOVE EXTREMETIES. LOOKS AROUND AND RESPONDS TO YES AND NO QUESTIONS. LUNGS WITH CRACKELS THROUGHOUT AND DIMINISHED IN LOWER LOBES. ON VENTILATOR, PLEASE SEE FLOW SHEETS FOR SETTINGS. IRREGULAR HEART SOUNDS, A-FLUTTER NOTED ON MONITOR, RATE OF 108. PPP WITH LEFT FEMORAL PULSE PALP. ON LEVOPHED FOR BP CONTROL, TITRATING PER ORDERS. BS HYPO X4, ABD DISTENDED AND SOFT, OGT WITH FEEDINGS OF VITAL 1.0 @ 20. YADAV IN PLACE, DRAINING VIA GRAVITY AND YEILDS CONCENTRATED URINE. PUPILS REACTIVE TO LIGHT AND BRISK, UNEQUAL IN SIZE. ORAL CARE AND TURNING PROVIDED. BED LOW AND LOCKED, VSS, WILL CPOC.
[2017-02-22 04:51] LABS: BASOPHILS 0.1 % (0-2); EOSINOPHILS 1.4 % (0-7); HEMATOCRIT 33.9 % (42.0-54.0); HEMOGLOBIN 10.3 g/dL (13.5-17.5); IMMATURE GRANULOCYTES 1.4 % (0-5); LYMPHOCYTES 5.2 % (15-50); MCHC 30.4 g/dL (31.0-37.0); MCV 105.3 fL (80.0-100.0); MEAN PLATELET VOLUME 12.2 fL (7.4-10.4); MONOCYTES 2.3 % (2-11); NEUTROPHILS 89.6 % (40-80); PLATELET COUNT 151 10x3/uL (130-400); RBC 3.22 10x6/uL (4.20-6.10); WBC 17.7 10x3/uL (4.8-10.8)
[2017-02-22 05:10] LABS: ALBUMIN 1.5 g/dL (3.4-5.0); ANION GAP 9.2 mmol/L (8-16); BILIRUBIN - TOTAL 0.41 mg/dL (0.2-1.3); CALCIUM 7.7 mg/dL (8.5-10.1); CARBON DIOXIDE 25.3 mmol/L (21.0-32.0); CREATININE - SERUM 1.5 mg/dL (0.6-1.3); MAGNESIUM - SERUM 2.7 mg/dL (1.8-2.4); POTASSIUM - SERUM 4.5 mmol/L (3.5-5.1); PROTEIN - SERUM 5.2 g/dL (6.4-8.2)
--- NOTE | 2017-02-22 08:11 | NUR ---
PT AWAKENS AND FOLLOWS COMMAND. INTUBATED ON VENT. [id number], SPO2 98%. RESP 23. 20MCG/MIN LEVOPHED. 110/61, TITRATED TO 19MCG/MIN. SR PAC'S, PVC'S AND AFLUTTER INTERMITTENTLY.
[2017-02-22 10:11] LABS: FUNGUS STAIN Final report (())
--- NOTE | 2017-02-22 11:09 | NUR ---
DR GOMEZ HERE, VENT SETTINGS MADE BY DR GOMEZ AND RT ON ROUNDS. LEVOPHED TITRATED DOWN TO 18MCG/MIN. BP 108/68, HR, 89.
--- NOTE | 2017-02-22 11:59 | NUR ---
NUTRITION F/U CHART REVIEWED. PT REMAINS ON VENT. VITAL 1.0 @ 20 CC/HR. DIPRIVAN DOWN TO 9CC/HR. WILL CONTINUE TO MONITOR PT PROGRESS, ADVANCE TUBE FEED RATE WHEN OK'D BY SURGERY. RD FOLLOWING
--- NOTE | 2017-02-22 12:38 | NUR ---
PT INC OF STOOL, CLEANED AND LINENS CHANGED.
--- NOTE | 2017-02-22 12:39 | NUR ---
1130- PT INC OF STOOL. CLEANED AND LINENS CHANGED.
--- NOTE | 2017-02-22 15:23 | NUR ---
PT CONTINUES TO HAVE WATERY STOOLS. PT CLEANED AND AIROVERLAY MATRESS APPLIED. DUODERM TO SKIN TEARS BUTTOCKS AND PT TURNED AND MOUTH CARE DONE. RECTAL TUBE PLACED ORDERED.
--- NOTE | 2017-02-22 15:32 | NUR ---
Wound care consult: Pt is sedated/intubated. Left buttock has 6cm x 4cm stage 2 pressure injury Right buttock has 4 diagonal red/nonblanchable lanier on buttock. Appears to have been either device related or wrinkled underpad/sheet related. Scrotum has 2 red scratched areas. Right lateral heel has 2cm x 2cm deep tissue injury. LAKA. Duoderm lite dressings were applied to buttocks and a mepilex 3x3 was applied to right heel. Pt was placed on an air overlay mattress. He has a f/c and a rectal tube d/t incontinence of bowels. Pt must be turned/repositioned q 2 hours. Right heel needs to remain bridged. Pt requires total care. Wound care will continue to follow.
--- NOTE | 2017-02-22 19:30 | NUR ---
REPORT RECIEVED, SHIFT ASSESSMENT COMPLETE, PT IS SEDATED ON VENT, AROUSES TO VOICE, ON 40% FIO2 WITH 97% O2 SAT. LUNGS CLEAR IN B/L UPPER LOBES, DIMINISHED IN B/L LOWER LOBES, PATENT LEFT SC CVL...SEE IV FLOW SHEET...PATENT OGT WITH VITAL 1.0 INFUSING @ 20 ML/HR VIA PUMP, ABDOMEN IS DISTENDED AND FIRM WITH ACTIVE BS, PATENT F/C WITH CONCENTRATED UOP, LEFT AKA, ALL PPP, WILL CON'T TO MONITOR
--- NOTE | 2017-02-22 21:23 | NUR ---
COMPLETE BATH AND LINEN CHANGE, LG BM AT THIS TIME, ORAL CARE PROVIDED, REPOSITIONED FOR COMFORT,
--- NOTE | 2017-02-22 23:10 | NUR ---
REASSESSMENT COMPLETE, NO CHANGES NOTED, PT RESTING COMFORTABLY, ORAL CARE PROVIDED, REPOSITIONED FOR COMFORT,
[2017-02-23] VITALS (32 sets, daily range): BP systolic 88–117; BP diastolic 42–76
--- NOTE | 2017-02-23 01:15 | NUR ---
REPOSTIONED FOR COMFORT, ORAL CARE PROVIDED
--- NOTE | 2017-02-23 03:10 | NUR ---
RAD IN ROOM FOR DAILY CXR
[2017-02-23 04:13] LABS: BASOPHILS 0.1 % (0-2); EOSINOPHILS 1.7 % (0-7); HEMATOCRIT 30.9 % (42.0-54.0); HEMOGLOBIN 9.9 g/dL (13.5-17.5); IMMATURE GRANULOCYTES 0.8 % (0-5); LYMPHOCYTES 4.3 % (15-50); MCH 33.2 pg (26.0-34.0); MCV 103.7 fL (80.0-100.0); MEAN PLATELET VOLUME 11.7 fL (7.4-10.4); MONOCYTES 1.4 % (2-11); NEUTROPHILS 91.7 % (40-80); PLATELET COUNT 155 10x3/uL (130-400); RBC 2.98 10x6/uL (4.20-6.10); RDW 16.1 % (11.5-14.5); WBC 15.9 10x3/uL (4.8-10.8)
[2017-02-23 04:31] LABS: ALBUMIN 1.3 g/dL (3.4-5.0); ANION GAP 11.2 mmol/L (8-16); BILIRUBIN - TOTAL 0.4 mg/dL (0.2-1.3); CALCIUM 7.7 mg/dL (8.5-10.1); CARBON DIOXIDE 22.9 mmol/L (21.0-32.0); CREATININE - SERUM 1.3 mg/dL (0.6-1.3); MAGNESIUM - SERUM 2.8 mg/dL (1.8-2.4); POTASSIUM - SERUM 4.1 mmol/L (3.5-5.1); PROTEIN - SERUM 4.9 g/dL (6.4-8.2)
--- NOTE | 2017-02-23 05:00 | NUR ---
REPOSITIONED FOR COMFORT, ORAL CARE PROVIDED,
--- NOTE | 2017-02-23 11:15 | NUR ---
SPOKE TO PT'S AT BS. DR COVINGTON HERE THIS AM ON ROUNDS. DR SOLIMAN ROUNDED THIS AN. CT CONTRAST GIVEN DOWN OGT.
--- NOTE | 2017-02-23 14:19 | NUR ---
PT TO CT ROOM, VENT PER RT. PT CHRISTA WELL. INC OF STOOL. PT BATHED AND LINENS CHANGED.
--- NOTE | 2017-02-23 21:00 | NUR ---
FAMILY AT BEDSIDE, UPDATE GIVEN
--- NOTE | 2017-02-23 23:03 | NUR ---
REASSESSMENT COMPLETE, NO CHANGES NOTED, PT REPOSITIONED FOR COMFORT, ORAL CARE PROVIDED,
[2017-02-24] VITALS (24 sets, daily range): BP systolic 89–144; BP diastolic 52–80
--- NOTE | 2017-02-24 01:01 | NUR ---
REPOSITIONED FOR COMFORT, ORAL CARE PROVIDED
--- NOTE | 2017-02-24 03:15 | NUR ---
REASSESSMENT COMPLETE, NO CHANGES NOTED, PT RESTING AT THIS TIME, REPOSITIONED FOR COMFORT, ORAL CARE PROVIDED,
[2017-02-24 04:09] LABS: BASOPHILS 0.1 % (0-2); EOSINOPHILS 1.3 % (0-7); HEMATOCRIT 29.4 % (42.0-54.0); HEMOGLOBIN 9.2 g/dL (13.5-17.5); IMMATURE GRANULOCYTES 0.8 % (0-5); LYMPHOCYTES 3.1 % (15-50); MCH 32.1 pg (26.0-34.0); MCHC 31.3 g/dL (31.0-37.0); MCV 102.4 fL (80.0-100.0); MEAN PLATELET VOLUME 11.5 fL (7.4-10.4); MONOCYTES 2.2 % (2-11); NEUTROPHILS 92.5 % (40-80); PLATELET COUNT 177 10x3/uL (130-400); RBC 2.87 10x6/uL (4.20-6.10); RDW 15.8 % (11.5-14.5); WBC 16.3 10x3/uL (4.8-10.8)
[2017-02-24 04:26] LABS: ALBUMIN 1.6 g/dL (3.4-5.0); ANION GAP 13.5 mmol/L (8-16); BILIRUBIN - TOTAL 0.6 mg/dL (0.2-1.3); CALCIUM 7.6 mg/dL (8.5-10.1); CARBON DIOXIDE 21.6 mmol/L (21.0-32.0); CREATININE - SERUM 1.3 mg/dL (0.6-1.3); MAGNESIUM - SERUM 2.9 mg/dL (1.8-2.4); POTASSIUM - SERUM 4.1 mmol/L (3.5-5.1); PROTEIN - SERUM 5.1 g/dL (6.4-8.2)
--- NOTE | 2017-02-24 05:15 | NUR ---
REPOSITIONED FOR COMFORT, ORAL CARE PROVIDED, WILL CON'T TO MONITOR
--- NOTE | 2017-02-24 07:57 | NUR ---
OPENS TO VERBAL STIMULI MAKES EYE CONTACT. BUT DOES NOT OBEY COMMANDS. DOES MOVE HANDS ON REQUEST. ETT SECURE TO VENT. BILATERAL LUNG SOUNDS EQUAL AND CONGESTED. OG INFUSING WITH VITAL 1.0 AT 40 ML HOUR WITH 100 CC FLUSH Q 4HOURS. YADAV PATENT DRAINING CLEAR EULALIO URINE. RIGHT HEEL ELEVATED ON PILLOW. MONITOR ATRIAL FLUTTER. CVP ZEROED FLUSHED GOOD WAVE FORM.
--- NOTE | 2017-02-24 09:29 | NUR ---
NUTRITION F/U CHART REVIEWED. PT REMAINS SEDATED ON VENT. VITAL 1.0 @ 55 CC/HR. ORDERED TUBE FEED INCREASE TOLERATED TO GOAL RATE 70 CC/HR. WILL PROVIDE 1680 KCAL 67 GM PROTEIN PER DAY. DIPRIVAN @ 9.5 CC/HR PROVIDING ADDITIONAL 250 KCAL PER DAY FOR TOTAL 1930 KCAL 67 GM PROTEIN PER DAY. RD FOLLOWING
--- NOTE | 2017-02-24 10:07 | EC ---
PATIENT:OLIVIER HAYES DATE OF SERVICE: 02/15/17 SEX: M MEDICAL RECORD: [id number] DATE OF : 45 LOCATION:[facility] D230 AGE OF PATIENT: 71 ADMISSION DATE: 02/15/17 REFERRING PHYSICIAN: INTERPRETING PHYSICIAN: SADIA SARGENT MD ECHOCARDIOGRAM REPORT ECHO CHARGES 4 ECHO COMPLETE CLINICAL DIAGNOSIS: VAVLULAR HEART DISEASE HX OF CAD/CABG ECHOCARDIOGRAPHIC MEASUREMENTS (adult normal given) AC root (d.<3.7cm) 3.0 cm LV Septum d (<1.2 cm> 1.5 cm Valve Excursion 1.5 cm LV Septum (systole) 1.7 cm Left Atria (s.<4.0cm> 3.6 cm LVPW d(<1.2cm) 1.5 cm RV (d.<2.3cm) 4.0 cm LVPW (sytole) 3.2 cm LV diastole(<5.6CM) 7.0 cm MV E-F(>70mm/sec) cm LV systole 5.6 cm LVOT Diameter 1.7 cm MV exc.(>10mm) 14 cm Est.ejection fraction (50-75%) % Pericardial Effusion N DOPPLER: LVIT cm/sec A 89.0 cm/sec E 111 cm/sec LA cm/sec RVSP 38 mmHg LVOT 108 cm/sec AOP1/2T m/s Asc. Ao 178 cm/sec RVOT 121 cm/sec RA cm/sec PA 167 cm/sec AV Gradient Peak 12.61mmHg AV Mean 6.92 mmHg AV Area 1.6 cm MV Gradient Peak 3.81 mmHg MV Mean 1.64 mmHg MV Area cm COMMENTS: Treer: Arely BEAVERS Supervisor Die Casting: 4 Dr. Sargent TAPE# PACS DATE OF SERVICE: 02/16/2017 PROCEDURE: Transthoracic echocardiogram. FINDINGS: 1. The left ventricle appears to be moderately dilated with global hypokinesis, ejection fraction of 20% to 25%. 2. Mitral valve has mild mitral regurgitation. 3. Pulmonic valve has mild pulmonic insufficiency. 4. The tricuspid valve has mild tricuspid regurgitation. ECHOCARDIOGRAM REPORT [id number] OLIVIER HAYES In conclusion, this is a suboptimal echo visualizing the structures. This is very qualitative rather than quantitative. The patient appears to have significant dilated cardiomyopathy. Mitral valve could not be excluded as being more moderate or even severe in its regurgitation; however, it is not readily demonstrated upon this echocardiogram. The overall ejection fraction is markedly diminished. TRANSINT:[id number] Voice Confirmation ID: [id number] DOCUMENT ID: [id number] 02/22/2017 Edited to correct date of service, dmm. SADIA SARGENT MD at 1007 CC: [id number] DICTATION DATE: 02/17/17 0725 CATERER HELPER: 02/17/17 1030 ADM IN [facility] [address] [place] [address]
--- NOTE | 2017-02-24 17:55 | NUR ---
SEVERAL SMALL LIQUID STOOLS DARK BROWN IN COLOR. TUBE FEEDING TURNED BACK ON AT 55 ML HOUR, FLUSH 100 ML Q 4 HOURS. YADAV CATH PATENT. AWAKES MAKES EYE CONTACT. TURNS HEAD TOWARD YOUR VOICE. DIPRIVAN AT 15 MCG/KG/MIN. MONITOR ATRIAL FLUTTER. ETT SECURE TO VENT BILATERAL LUNG SOUNDS EQUAL. NO DISTRESS NOTED. SUCTIONS LARGE AMOUNT OF PALE YELLOW SPUTUM PER ETT. AND ORALLY. DUODERM INTACT ON COCCYX AND RIGHT HEEL
--- NOTE | 2017-02-24 19:00 | NUR ---
REPORT RECIEVED, SHIFT ASSESSMENT COMPLETE, PT IS SEDATED ON VENT, OPENS EYES, ON 35% FIO2 WITH 97% O2 SAT. RHONCHI/CRACKLES HEARD IN B/L UPPER LOBES, DIMINISHED IN B/L LOWER LOBES, AFLUTTER ON THE MONITOR, PATENT OGT WITH VITAL INFUSING VIA PUMP, PATENT LEFT SC CVL..SEE IV FLOW SHEET...ABDOMEN IS DISTENDED WITH ACTIVE BS, PATENT F/C WITH EULALIO UOP, LEFT AKA, ALL OTHER PPP, VSS, WILL CON'T TO MONITOR
--- NOTE | 2017-02-24 21:10 | NUR ---
NO VISITORS AT THIS TIME, WILL CON'T TO MONITOR
--- NOTE | 2017-02-24 23:15 | NUR ---
REASSESSMENT COMPLETE, NO CHANGES NOTED, PT REPOSITIONED FOR COMFORT, ORAL CARE PROVIDED,
[2017-02-25] VITALS (24 sets, daily range): BP systolic 105–132; BP diastolic 56–83
--- NOTE | 2017-02-25 01:30 | NUR ---
REPOSITIONED FOR COMFORT, ORAL CARE PROVIDED,
--- NOTE | 2017-02-25 03:11 | NUR ---
REASSESSMENT COMPLETE, NO CHANGES NOTED, PT RESTING AT THIS TIME, WILL CON'T TO MONITOR
--- NOTE | 2017-02-25 03:23 | NUR ---
VENT CIRCUIT CHANGED
[2017-02-25 05:01] LABS: BASOPHILS 0.1 % (0-2); EOSINOPHILS 1.3 % (0-7); HEMATOCRIT 28.9 % (42.0-54.0); HEMOGLOBIN 9.3 g/dL (13.5-17.5); IMMATURE GRANULOCYTES 0.6 % (0-5); MCH 32.6 pg (26.0-34.0); MCHC 32.2 g/dL (31.0-37.0); MCV 101.4 fL (80.0-100.0); MEAN PLATELET VOLUME 11.8 fL (7.4-10.4); MONOCYTES 4.1 % (2-11); NEUTROPHILS 89.9 % (40-80); PLATELET COUNT 208 10x3/uL (130-400); RBC 2.85 10x6/uL (4.20-6.10); RDW 15.6 % (11.5-14.5); WBC 12.7 10x3/uL (4.8-10.8)
[2017-02-25 05:20] LABS: ALBUMIN 1.8 g/dL (3.4-5.0); BILIRUBIN - TOTAL 0.6 mg/dL (0.2-1.3); CALCIUM 7.6 mg/dL (8.5-10.1); CARBON DIOXIDE 22.3 mmol/L (21.0-32.0); CREATININE - SERUM 1.4 mg/dL (0.6-1.3); POTASSIUM - SERUM 4.3 mmol/L (3.5-5.1); PROTEIN - SERUM 5.4 g/dL (6.4-8.2)
[2017-02-25 05:21] LABS: PHOSPHOROUS 5.2 mg/dL (2.5-4.9)
--- NOTE | 2017-02-25 08:36 | NUR ---
EYES OPEN TO VERBAL STIMULI. BILATERAL LUNG SOUNDS EQUAL STILL SLIGHTLY CONGESTED. SUCTIONING PALE YELLOW SECRETIONS FROM ETT. CLEAR ORALLY. ABD DISTENDED LOOKING BUT SOFT. OG FEEDING SECURE INFUSING WITH VITAL 1.0 AT 70 ML HOUR. 100 ML FLUSH Q 4 HOURS. MONITOR ATRIAL FLUTTER. LEFT TRIPLE LUMEN INFUSING WITH D5W AT 100 ML HOUR AND DIPRIVAN AT 15 MCG/KG/MIN. YADAV CATH PATENT. SCD ON RIGHT LEG WORKING PROPERLY
--- NOTE | 2017-02-25 09:56 | NUR ---
RECTAL TUBE PLACEFOR LIQUID BROWN STOOL. DUODERM ON COCCYX REPLACED AND DUODERM REPLACED ON RIGHT HEEL. LARGE BRUSIED AREA MIANLY ON LEFT BUTTOCK. SMALL AMOUNT ON RIGHT BUTTOCK. 10 X 15 RIGHT HEEL SLIGHTLY PURPLE. HERE QUESTIONS ANSWERED STATES THEY WHAT PATEINT TO BE A DNR, IF HIS HEART STOPS THEY WANT TO LET HIM GO. DO NOT BRING HIM BACK
--- NOTE | 2017-02-25 10:17 | NUR ---
NUTRITION F/U CHART REVIEWED. PT REMAINS SEDATED ON VENT. SPOKE WITH DR. GOMEZ. VITAL TUBE FEED RATE DECREASED TO 60 CC/HR. RD FOLLOWING
--- NOTE | 2017-02-25 12:57 | NUR ---
TOLERATING CPAP WELL ON VENT TV 580'S. RESP RATE BELOW 30. NO DISTRESS NOTED.
--- NOTE | 2017-02-25 18:33 | NUR ---
REPOSITIONED UP IN BED. OPENS EYES MAKES EYE CONTACT. FAMILY DAUGHTER AND REQUEST dnr TODAY. DO NOT WANT HIM TAKEN OFF THE VENTILATOR OR EXTUBATED RIGHT NOW, IF HIS HEART STOPS DO NOT WANT CPR DONE.
--- NOTE | 2017-02-25 19:00 | NUR ---
REPORT RECEIVED. SHIFT ASSESSMENT COMPLETED PER FLOW SHEET. PT LAYING IN BED SEDATED ON VENT. OPENS EYES SPONTANEOUSLY. PUPILS 3 MM SLUGGISH REACTION. NOT FOLLOWING COMMANDS AT THIS TIME. HE APPEARS CALM. OGT PLACEMENT VERIFIED VIA AUSCULTATION. OGT FEEDINGS OF VITAL 1.0 AT 60 CC/HR, 10 MLS RESIDUAL OBTAINED. ETT SECURED AT 22 CM RT LIP LINE. RADIAL PULSES PALP. RT PEDAL PULSE PALP. EDEMA NOTED TO UPPER AND LOWER EXTREMITIES, ARMS AND RT LEG ELEVATED ON PILLOWS. TELEMETRY MONITORING HR OF 72. BS ACTIVE X4. RECTAL TUBE IN PLACE, BROWN DIARRHEA NOTED. YADAV CATHETER TO GRAVITY, SECURED, DRAINING EULALIO YELLOW URINE. PRESSSURE ULCERS TO RT HEEL AND COCCYX, DRESSINGS INTACT. LT SUBCLAVIAN CENTRAL LINE, INFUSING DIPRIVAN AT 15 MCG/KG/MIN AND D5W AT 10 MLS/HR, DRESSING CDI. LT AND RT SOFT WRIST RESTRAINTS. SEE FLOW SHEET FOR COMPLETE ASSESSMENT. BED IN LOWEST POSITION. WILL CONTINUE TO MONITOR.
--- NOTE | 2017-02-25 20:39 | NUR ---
PT LAYING IN BED AWAKE, TOLERATING OGT FEEDINGS. TUBE FEEDING BAGS CHANGED AND DATED. WILL CONTINUE TO MONITOR.
--- NOTE | 2017-02-25 21:00 | NUR ---
NO VISITORS AT THIS TIME. ORAL CARE PROVIDED. PT REPOSITIONED FOR COMFORT. NO DISTRESS NOTED AT THIS TIME. WILL CONTINUE TO MONITOR.
--- NOTE | 2017-02-25 23:00 | NUR ---
REASSESSMENT COMPLETED PER FLOW SHEET, SEE FOR DETAILS. SEDATED ON VENT. OPENS EYES SPONTANEOUSLY. RHONCHI TO RUL, RML, AND AVANI. DIMINISHED BREATH SOUNDS TO RLL AND LLL. ETT AT 23 CM RT LIP LINE. ORAL CARE PROVIDED. PT REPOSITIONED FOR COMFORT. WILL CONTINUE TO MONITOR. BED IN LOWEST POSITION.
[2017-02-26] VITALS (24 sets, daily range): BP systolic 101–135; BP diastolic 46–78
--- NOTE | 2017-02-26 01:00 | NUR ---
PT LAYING IN BED RESTING. SEDATED ON VENT. ORAL CARE PROVIDED. REPOSITIONED FOR COMFORT. WILL CONTINUE TO MONITOR.
--- NOTE | 2017-02-26 03:00 | NUR ---
REASSESSMENT COMPLETED PER FLOW SHEET. NO ACUTE CHANGES NOTED. SEE FLOW SHEET FOR COMPLETE ASSESSMENT. ORAL CARE PROVIDED. REPOSITIONED FOR COMFORT. WILL CONTINUE TO MONITOR.
--- NOTE | 2017-02-26 05:00 | NUR ---
PT LAYING IN BED SEDATED ON VENT. OPENS EYES SPONTANEOUSLY. NO DISTRESS AT THIS TIME. ORAL CARE PROVIDED. WILL CONTINUE TO MONITOR.
[2017-02-26 05:07] LABS: BASOPHILS 0.1 % (0-2); EOSINOPHILS 1.2 % (0-7); HEMATOCRIT 25.4 % (42.0-54.0); HEMOGLOBIN 8.3 g/dL (13.5-17.5); IMMATURE GRANULOCYTES 0.6 % (0-5); LYMPHOCYTES 5.5 % (15-50); MCH 32.8 pg (26.0-34.0); MCHC 32.7 g/dL (31.0-37.0); MCV 100.4 fL (80.0-100.0); MONOCYTES 5.7 % (2-11); NEUTROPHILS 86.9 % (40-80); PLATELET COUNT 256 10x3/uL (130-400); RBC 2.53 10x6/uL (4.20-6.10); RDW 15.5 % (11.5-14.5); WBC 12.4 10x3/uL (4.8-10.8)
[2017-02-26 05:22] LABS: ALBUMIN 1.8 g/dL (3.4-5.0); ANION GAP 12.3 mmol/L (8-16); BILIRUBIN - TOTAL 0.6 mg/dL (0.2-1.3); CALCIUM 7.8 mg/dL (8.5-10.1); CARBON DIOXIDE 23.5 mmol/L (21.0-32.0); CREATININE - SERUM 1.4 mg/dL (0.6-1.3); PHOSPHOROUS 5.5 mg/dL (2.5-4.9); POTASSIUM - SERUM 4.8 mmol/L (3.5-5.1); PROTEIN - SERUM 5.6 g/dL (6.4-8.2)
[2017-02-26 05:30] LABS: MAGNESIUM - SERUM 3.5 mg/dL (1.8-2.4)
--- NOTE | 2017-02-26 06:08 | NUR ---
MEDS ADMINISTERED PER EMAR, SEE FOR DETAILS. NO DISTRESS AT THIS TIME. WILL CONTINUE TO MONITOR.
--- NOTE | 2017-02-26 08:15 | NUR ---
PLACED VENT ON CPAP 20/7/35% AT [address] GOMEZ.
--- NOTE | 2017-02-26 11:02 | NUR ---
PT BATHED AND LINENS CHANGED. RECTAL TUBE FLUSHES W/O PROBLEMS. DR COVINGTON HERE THIS AM.
--- NOTE | 2017-02-26 19:45 | NUR ---
RECEIVED CARE OF PT, ASSESSMENT PER FLOWSHEET. PT INTUBATED AND SEDATED ON VENT WITH PROPOFOL AT 2O MCG/KG/MIN, ABLE TO TRACK WITH EYES AND FOLLOW COMMANDS WEAKLY BUT SOMEWHAT, HR ATRIAL FLUTTER ON MONITOR, CRACKLES AUSCULTATED BILAT WITH DIM BASES, FIO2 30%, VITAL 1.0 INFUSING AT 60CC/HR TO OGT-PLACEMENT VERIFIED WITH AUSCULTATION OF SMALL AIR BOLUS, PPP, LT AKA NOTED, SKIN ASSESSMENT PER FLOWSHEET, YADAV CATH PATENT, WILL MONITOR.
--- NOTE | 2017-02-26 20:15 | NUR ---
PT YXEOBFT-TO-CHA IN FOR VISITATION, UPDATE PROVIDED, DENIES ANY QUESTIONS AT THIS TIME.
--- NOTE | 2017-02-26 23:40 | NUR ---
REASSESSMENT PER FLOWSHEET, NO ACUTE CHANGES NOTED AT THIS TIME. REMAINS IN ATRIAL FLUTTER ON MONITOR, VSS, CONT POC.
[2017-02-27] VITALS (24 sets, daily range): BP systolic 101–124; BP diastolic 47–72
--- NOTE | 2017-02-27 01:00 | NUR ---
PT REPOSITIONED TO LT SIDE SUPPORTED WITH PILLOWS, REMAINS IN ATRIAL FLUTTER ON MONITOR, ORAL CARE AND SUCTIONING PROVIDED.
--- NOTE | 2017-02-27 03:40 | NUR ---
AM CXR COMPLETED, PT REPOSITIONED FOR COMFORT SUPPORTED WITH PILLOWS. ORAL CARE AND SUCTIONING PROVIDED, VSS, CONT POC.
[2017-02-27 04:23] LABS: BASOPHILS 0.1 % (0-2); EOSINOPHILS 1.6 % (0-7); HEMATOCRIT 27.7 % (42.0-54.0); HEMOGLOBIN 8.9 g/dL (13.5-17.5); IMMATURE GRANULOCYTES 1.2 % (0-5); LYMPHOCYTES 6.5 % (15-50); MCH 32.5 pg (26.0-34.0); MCHC 32.1 g/dL (31.0-37.0); MCV 101.1 fL (80.0-100.0); MEAN PLATELET VOLUME 10.6 fL (7.4-10.4); MONOCYTES 5.2 % (2-11); NEUTROPHILS 85.4 % (40-80); PLATELET COUNT 274 10x3/uL (130-400); RBC 2.74 10x6/uL (4.20-6.10); RDW 15.5 % (11.5-14.5); WBC 9.6 10x3/uL (4.8-10.8)
[2017-02-27 05:06] LABS: ALBUMIN 1.9 g/dL (3.4-5.0); ANION GAP 13.7 mmol/L (8-16); BILIRUBIN - TOTAL 0.56 mg/dL (0.2-1.3); CALCIUM 7.7 mg/dL (8.5-10.1); CARBON DIOXIDE 22.2 mmol/L (21.0-32.0); CREATININE - SERUM 1.3 mg/dL (0.6-1.3); POTASSIUM - SERUM 4.9 mmol/L (3.5-5.1); PROTEIN - SERUM 5.7 g/dL (6.4-8.2)
--- NOTE | 2017-02-27 05:23 | NUR ---
AM LABS REVIEWED, NOTHING TO TREAT PER ELECTROLYTE PROTOCOL. ORAL CARE AND SUCTIONING PROVIDED, REMAINS IN ATRIAL FLUTTER ON MONITOR, CONT POC.
--- NOTE | 2017-02-27 10:09 | NUR ---
WILL GIVE LANTUS INSULIN UPON ARRIVAL FROM Rx
--- NOTE | 2017-02-27 19:35 | NUR ---
RESUMED CARE OF PT, ASSESSMENT PER FLOWSHEET. PT INTUBATED AND SEDATED VIA VENT, 30% FIO2, OGT WITH VITAL 1.0 INFUSING AT 60CC/HR, PLACEMENT VERIFIED WITH AUSCULTATION OF SMALL AIR BOLUS, CRACKLES AUSCULTATED BILATERALLY WITH DIM BASES, SKIN ASSESSMENT PER FLOWSHEET, YADAV CATH PATENT WITH EULALIO URINE DRAINING, RECTAL TUBE WITH LIQUID BROWN STOOL IN TUBING, POSITIONED FOR COMFORT SUPPORTED WITH PILLOWS, HR ATRIAL FLUTTER ON CM, WILL MONITOR.
--- NOTE | 2017-02-27 22:32 | NUR ---
PT CALLED, PASSWORD PROVIDED AND UPDATE GIVEN. ALL QUESTIONS ANSWERED. PT RESTING AND SEDATION DECREASED TO 30 MCG/KG/MIN, WILL MONITOR.
--- NOTE | 2017-02-27 23:15 | NUR ---
REASSESSMENT PER FLOWSHEET, PLEASE SEE FOR DETAILS. VSS, WILL CONT POC.
[2017-02-28] VITALS (24 sets, daily range): BP systolic 97–117; BP diastolic 47–76
--- NOTE | 2017-02-28 01:05 | NUR ---
RT AT BEDSIDE, ORAL CARE AND SUCTIONING PER RT. VSS, CONT TO MONITOR.
--- NOTE | 2017-02-28 03:30 | NUR ---
AM CXR COMPLETED, NO DIFFICULTY NOTED, PT POSITIONED FOR COMFORT SUPPORTED WITH PILLOWS, VSS, CONT POC.
[2017-02-28 04:17] LABS: BASOPHILS 0.1 % (0-2); EOSINOPHILS 0.5 % (0-7); HEMATOCRIT 28.6 % (42.0-54.0); IMMATURE GRANULOCYTES 1.2 % (0-5); LYMPHOCYTES 4.2 % (15-50); MCH 32.8 pg (26.0-34.0); MCHC 31.5 g/dL (31.0-37.0); MEAN PLATELET VOLUME 10.2 fL (7.4-10.4); MONOCYTES 5.7 % (2-11); NEUTROPHILS 88.3 % (40-80); RBC 2.74 10x6/uL (4.20-6.10); RDW 15.6 % (11.5-14.5)
[2017-02-28 04:18] LABS: MCV 104.4 fL (80.0-100.0); PLATELET COUNT 343 10x3/uL (130-400)
[2017-02-28 04:33] LABS: ALBUMIN 2.2 g/dL (3.4-5.0); BILIRUBIN - TOTAL 0.67 mg/dL (0.2-1.3); CALCIUM 8.1 mg/dL (8.5-10.1); CREATININE - SERUM 1.4 mg/dL (0.6-1.3); PROTEIN - SERUM 6.3 g/dL (6.4-8.2)
[2017-02-28 04:34] LABS: MAGNESIUM - SERUM 3.8 mg/dL (1.8-2.4)
--- NOTE | 2017-02-28 04:45 | NUR ---
PT ASSESSED, NOTED TO BE INTOLERANT OF TUBE FEED AT THIS TIME. OGT FLUSHED, KANGAROO PUMP TURNED OFF AT THIS TIME.
--- NOTE | 2017-02-28 06:40 | NUR ---
DR GOMEZ NOTIFIED OF ABG RESULTS, AM LAB RESULTS REVIEWED, ORDERS RECEIVED.
--- NOTE | 2017-02-28 11:30 | NUR ---
PLACED INTO DROPLET ISOLATION PER [place] DECORATOR. DUE TO POSSIBLE MRSA IN THE SPUTUM.
--- NOTE | 2017-02-28 19:30 | NUR ---
RESUMED CARE OF PT, ASSESSMENT PER FLOWSHEET. PT INTUBATED AND SEDATED WITH 15 MCG/KG/MIN OF DIPRIVAN INFUSING TO LT CVL, D5 1/2 NS INFUSING AT 75CC/HR PER ORDER, A/C SETTING ON VENT, 60% FIO2, CRACKLES AUSCULTATED BILATERALLY WITH DIM BASES, SUCTIONING THICK LEE-YELLOW SECRETIONS FROM ETT, OGT NOTED, PLACEMENT VERIFIED WITH AUSCULTATION OF SMALL AIR BOLUS, SKIN ASSESSMENT PER FLOWSHEET, A-FIB ON CM AT A RATE OF 72, YADAV CATH PATENT WITH EULALIO URINE IN TUBING, RECTAL TUBE WITH BROWN LIQUID STOOL. WILL MONITOR.
--- NOTE | 2017-02-28 21:37 | NUR ---
PT DAUGHTER IN FOR VISITATION, DENIES QUESTIONS OR ANY NEEDS AT THIS TIME. PT RESTING ON VENT, VSS, CONT TO MONITOR.
--- NOTE | 2017-02-28 23:25 | NUR ---
REASSESSMENT PER FLOWSHEET, NO ACUTE CHANGES NOTED AT THIS TIME. IV TUBING CHANGED OUT PER POLICY. CONT TO MONITOR.
[2017-03-01] VITALS (15 sets, daily range): BP systolic 92–134; BP diastolic 58–81
--- NOTE | 2017-03-01 01:00 | NUR ---
PT REPOSITIONED FOR COMFORT SUPPORTED WITH PILLOWS, ORAL CARE AND SUCTIONING PROVIDED-COPIOUS AMOUNTS OF THICK SECRETIONS AGAIN NOTED, ATRIAL FLUTTER ON MONITOR.
--- NOTE | 2017-03-01 03:00 | NUR ---
REASSESSMENT PER FLOWSHEET, BATH AND LINEN CHANGE DONE, PT TOLERATED WITHOUT DIFFICULTY, SUPPORTED WITH PILLOWS, ORAL CARE AND SUCTIONING PROVIDED, VSS.
[2017-03-01 04:18] LABS: BASOPHILS 0.1 % (0-2); EOSINOPHILS 0.4 % (0-7); HEMOGLOBIN 8.3 g/dL (13.5-17.5); LYMPHOCYTES 4.5 % (15-50); MCH 32.3 pg (26.0-34.0); MCHC 31.9 g/dL (31.0-37.0); MEAN PLATELET VOLUME 10.6 fL (7.4-10.4); MONOCYTES 5.1 % (2-11); NEUTROPHILS 88.9 % (40-80); PLATELET COUNT 352 10x3/uL (130-400); RBC 2.57 10x6/uL (4.20-6.10); RDW 15.4 % (11.5-14.5); WBC 13.8 10x3/uL (4.8-10.8)
[2017-03-01 04:22] LABS: MCV 101.2 fL (80.0-100.0)
[2017-03-01 04:45] LABS: ALBUMIN 1.9 g/dL (3.4-5.0); ANION GAP 15.3 mmol/L (8-16); BILIRUBIN - TOTAL 1.03 mg/dL (0.2-1.3); CALCIUM 7.6 mg/dL (8.5-10.1); CARBON DIOXIDE 22.3 mmol/L (21.0-32.0); CREATININE - SERUM 1.4 mg/dL (0.6-1.3); PHOSPHOROUS 5.1 mg/dL (2.5-4.9); POTASSIUM - SERUM 5.6 mmol/L (3.5-5.1)
[2017-03-01 04:54] LABS: MAGNESIUM - SERUM 3.6 mg/dL (1.8-2.4)
--- NOTE | 2017-03-01 05:22 | NUR ---
NO VISITORS PRESENT AT THIS TIME, PT POSITIONED FOR COMFORT, ORAL CARE PROVIDED, VSS, CONT POC.
--- NOTE | 2017-03-01 09:05 | NUR ---
FAMILY HERE, CM PAGED ASKED BY PT'S .
--- NOTE | 2017-03-01 09:58 | NUR ---
NUTRITION F/U CHART REVIEWED, PT REMAINS ON VENT, SEDATED. FAMILY AT BEDSIDE. TUBE FEEDS CURRENTLY ON HOLD. NOTE POSSIBLE TRACH AND PEG. WILL MONITOR PT PROGRESS. RD FOLLOWING
--- NOTE | 2017-03-01 13:26 | NUR ---
PT'S AND 3 OTHER FAMILY MEMBERS SPOKE TO DR ESCOBEDO IN THE FAMILY ROOM. STATES THAT TERMINAL EXTUBATION HAS BEEN DECIDED ON. WILL EXTUBATE WHEN FAMILY IS READY.
--- NOTE | 2017-03-01 14:02 | NUR ---
Patient has failed attempts to wean from vent. Family considering terminal wean & request assistance with getting son, Balbir Oakley, home from active duty. CM contacted [employer] @ [phone] and initiated request - Case Reference #[id number]. Notified daughter, Farzana Farr [phone] of status of [employer] request. CM will follow.
--- NOTE | 2017-03-01 15:06 | NUR ---
VERBILIZES READINESS FOR TERMINAL EXTUBATION. PROPOLOL TURNED OFF. INSTRUCTED FAMILY OF TERMINAL EXTUBATION ORDERSAND WHAT TO EXPECT WITH PROCESS AND MEDS FOR COMFORT. VERB UNDERSTANDING.
--- NOTE | 2017-03-01 15:17 | NUR ---
PT'S DAUGHTER IS ASKING FOR THIS RN TO ONLY GIVE 2MG MS AND NOT THE FULL 10MG.
--- NOTE | 2017-03-01 17:13 | NUR ---
1622- PT EXTUBATED TO 2LNC. MS 2MG GIVEN PRIOR TO EXTUBATION. FAMILY DID NOT WANT 10MG MS TO BE GIVEN.
--- NOTE | 2017-03-01 17:16 | NUR ---
1600- PT WITH SLIGHT TACHYPNEA. 2MG ATIVAN AND 4MG MS GIVEN.
--- NOTE | 2017-03-01 18:48 | NUR ---
PT RESTING COMFORTABLY ON 2LNC. SPO2 91%.
--- NOTE | 2017-03-01 19:30 | NUR ---
REPORT RECEIVED. SHIFT ASSESSMENT COMPLETED PER FLOW SHEET. PT LAYING IN BED. AWAKE. INCOMPREHENSIBLE SOUNDS NOTED. DOES NOT FOLLOW COMMANDS. 2 L 02 VIA NC. EDEMA TO UPPER AND LOWER EXTREMITIES. ABDOMEN ROUND AND FIRM. RECTAL TUBE IN PLACE SECURED. YADAV CATHETER TO GRAVITY SECURED. LT SUBCLAVIAN CENTRAL LINE. SALINE LOCKED. REPOSITIONED FOR COMFORT. ORAL CARE PROVIDED. MOUTH SUCTIONED. SEE FLOW SHEET FOR COMPLETE ASSESSMENT. WILL CONTINUE TO MONITOR.
--- NOTE | 2017-03-01 19:45 | NUR ---
FAMILY AT BEDSIDE. INFORMED ABOUT POSSIBLE TRANSFER TO FLOOR. ENCORAGED HER TO STAY WITH PATIENT NEEDED. SHE SAID SHE WOULD BE BACK IN AND DENIES NEEDS AT THIS TIME. WILL CONTINUE TO MONITOR.
--- NOTE | 2017-03-01 21:00 | NUR ---
PT APNEIC. ASYSTOLE ON MONITOR. FAMILY AT BEDSIDE.
--- NOTE | 2017-03-01 21:10 | NUR ---
DR. COURTNEY BYRD
--- NOTE | 2017-03-01 21:14 | NUR ---
DR. VALDEZ CALLED BACK. INFORMED HIM OF PATIENTS EXPIRATION.
--- NOTE | 2017-03-01 21:30 | NUR ---
FAMILY IN ROOM. HOME CHOICE DISCUSSED. FORM SIGNED.
--- NOTE | 2017-03-01 22:00 | NUR ---
PT CLEANED; POST EXPIRATION CARE COMPLETE.
--- NOTE | 2017-03-01 22:40 | NUR ---
DR. YANG AT BEDSIDE TO PRONOUNCE PT
--- NOTE | 2017-03-01 23:08 | NUR ---
MARGIN TRIMMER NOTIFIED OF PATIENTS EXPIRATION
--- NOTE | 2017-03-01 23:39 | NUR ---
HOME PERSONNEL AT BEDSIDE
--- NOTE | 2017-03-04 12:11 | NUR ---
Per [facility] protocol, restaint report logged into data base.
--- NOTE | 2017-03-05 10:35 | CN ---
PATIENT NAME:OLIVIER BARNES MEDICAL RECORD: [id number] : 45 LOCATION:[facility]2308 ADMIT DATE: 02/15/17 ACCOUNT: [id number] CONSULTING PHYSICIAN: PAULINO ESCOBEDO MD REFERRING PHYSICIAN: JONATHAN WHELAN MD DATE OF CONSULTATION: 02/16/2017 Pulmonary Consultation CONSULT REQUESTING PHYSICIAN: Jonathan Whelan MD REASON FOR CONSULTATION: COPD, acute hypoxic respiratory failure. HISTORY OF PRESENT ILLNESS: Mr. Barnes is a 71-year-old gentleman, who was admitted with acute abdominal pain and diagnosed with acute pancreatitis with pancreatic enzymes in 1000. He is also very weak and lethargic and shortness of breath. There is no coughing. Now, the patient is very lethargic and breathless. The history was taken mainly by talking to the patient's and reviewing the patient's note. REVIEW OF SYSTEMS: As in history of present illness. PAST MEDICAL HISTORY: 1. Coronary artery disease. 2. History of AAA. 3. Hypertension. 4. Continued smoking, nicotine dependence. 5. COPD. PAST SURGICAL HISTORY: 1. Status post abdominal aortic aneurysm repair. 2. He has femoro-popliteal repair. 3. CABG. ALLERGIES: HE IS ALLERGIC TO PENICILLIN AND BETA BLOCKERS. PRESENT MEDICATIONS: On exoro system was reviewed. PERSONAL AND SOCIAL HISTORY: The patient still everyday smoker. He is a nondrinker, and lives with his . FAMILY HISTORY: Significant for cardiovascular disease. PHYSICAL EXAMINATION: GENERAL: Now, the patient is lying comfortably in bed. He is in mild respiratory distress. VITAL SIGNS: The blood pressure is 103/58, pulse is 86, respirations 16, temperature is 101.8, and SpO2 is 90% on 2 liter nasal cannula. HEENT: Conjunctivae pink, sclerae nonicteric. NECK: Supple, no JVD. CHEST: There are bibasilar crackles. No wheezing. HEART: Rhythm regular, normal sound, no murmur. ABDOMEN: Soft, bowel sounds present. No hepatosplenomegaly. RECTAL: Deferred. EXTREMITIES: No cyanosis, no clubbing, no pedal edema. CONSULT REPORT [id number] OLIVIER BARNES SKIN: Warm, normal turgor. CENTRAL NERVOUS SYSTEM: The patient is awake. There is no obvious cranial nerve abnormality. IMAGING: Chest radiograph, there is increased interstitial marking. The CT scan of the abdomen showed that he has bibasilar atelectasis. There is edema around the gallbladder. There are diffuse pancreatitis. IMPRESSION: 1. Acute hypoxic respiratory failure. 2. Acute exacerbation of chronic obstructive pulmonary disease. 3. Atelectasis, which is bibasilar. 4. Acute pancreatitis. 5. Dyspnea. 6. Coronary artery disease. 7. Peripheral vascular disease. RECOMMENDATION: 1. We will transfer the patient to the ICU. Continue meropenem. I will add Levaquin. 2. Brovana, budesonide nebulizer, albuterol/ipratropium nebulizer. 3. Check the ABG, check the chest radiograph, check the ammonia level. The prognosis is guarded. Dr. Whelan thank you for involving me in the care of Mr. Barnes. TRANSINT:[id number] Voice Confirmation ID: [id number] DOCUMENT ID: [id number] PAULINO ESCOBEDO MD at 1035 CC: JONATHAN WHELAN MD [id number] DICTATION DATE: 02/16/17 1456 TRANSMISSION AND COORDINATION ENGINEER: 02/16/17 1622 DIS IN 03/01/17 [facility] [address] [place] [address]
--- NOTE | 2017-03-07 13:44 | DS ---
PATIENT:OLIVIER HAYES :45 MEDICAL RECORD: [id number] DISCHARGE SUMMARY ADMISSION DATE: 02/15/17 DISCHARGE DATE: 03/01/17 DATE OF ADMISSION: 02/15/2017 DATE OF EXPIRATION: 03/01/2017 DISCHARGE DIAGNOSES: 1. Acute respiratory failure with hypoxia and hypercapnia due to pneumonia and chronic obstructive pulmonary disease exacerbation and acute respiratory distress syndrome. 2. Acute renal failure. 3. Acute pancreatitis. 4. Cholelithiasis. 5. Atrial fibrillation. 6. Atherosclerotic heart disease. 7. Alcohol abuse. 8. Coronary artery disease. 9. Hypoalbuminemia. 10. Diabetes. 11. Hypertriglyceridemia. 12. Peripheral artery disease status post remote left above-knee amputation. 13. History of aneurysm of iliac artery. CONSULTANTS: 1. Dr. Damon. 2. Dr. Burton. 3. Dr. Oseguera. BRIEF HISTORY AND COURSE IN THE SCHULTE: This is a 71-year-old white male with history of COPD and peripheral artery disease, status post left above-knee amputation as well as history of coronary artery disease, who was admitted via the Emergency Room for abdominal pain. The patient had sudden onset on the morning of admission associated with nausea, vomiting and diarrhea. The pain radiated to his back. His white blood cell count was elevated to 14,600. Gallbladder ultrasound on 02/15/2017 showed cholelithiasis. CAT scan of the abdomen showed acute pancreatitis. The patient's amylase on 02/15/2017 was 3119, lipase was 11,252. The patient was started on a morphine pump and surgery was consulted. On 02/16/2017, his temperature was 100.6. He was started on Merrem and pulmonary medicine was consulted. He became more short of breath. He was started on updrafts and transferred to ICU on 02/16/2017. He required emergency intubation on 02/18/2017. A central line was placed on 02/18/2017 and vancomycin was added to his Merrem and Levaquin. The patient became hypotensive on 02/18/2017, he was started on vasopressin. The patient also was in acute renal failure. His initial BUN was 39, creatinine 1.8. On 02/17/2017, BUN was 59, creatinine 2.5. Nephrology was consulted. His WBC count remained elevated and he continued to have low-grade fever. His renal functions improved a little, but then started to climb. On 02/27/2017, his BUN was 50, creatinine 1.3, sodium was 138. The patient failed attempts to wean him off the ventilator on 02/27/2017. Also on 02/27/2017, sputum cultures grew MRSA. He was placed in droplet isolation. He was taken off pressors on 02/23/2017. He did not do well and after discussion with his and daughter, it was decided to terminally extubate him. The patient on 03/01/2017 and was pronounced by Dr[address] Montez. 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
[2017-03-18 12:16] LABS: FUNGUS MYCOLOGY CULTURE Final report (())
[2017-04-16 10:18] LABS: ACID FAST CULTURE Negative (()); ACID FAST SMEAR Negative (())
== END 2017-03-01 23:55 | DRG 870 ==
LOC: D.ER 08:07 → D.MS 11:17 → D.M2 11:17 → D.ICU 11:17 → D.MS 11:37 → D.ICU 02-16 15:58
PROVIDERS: Emergency Medicine; General Practice; Internal Medicine Pulmonary Disease; ADMIT Family Medicine
PROC: 0T9B70Z Drainage of Bladder with Drainage Device, Via Natural or Artificial Opening (ICD-10-PCS; principal; 2017-02-16)
PROC: 5A09457 Assistance with Respiratory Ventilation, 24-96 Consecutive Hours, Continuous Positive Airway Pressure (ICD-10-PCS; 2017-02-16)
PROC: 0BH17EZ Insertion of Endotracheal Airway into Trachea, Via Natural or Artificial Opening (ICD-10-PCS; 2017-02-18)
PROC: 5A1955Z Respiratory Ventilation, Greater than 96 Consecutive Hours (ICD-10-PCS; 2017-02-18)
PROC: 02HV33Z Insertion of Infusion Device into Superior Vena Cava, Percutaneous Approach (ICD-10-PCS; 2017-02-18)
PROC: 0BD78ZX Extraction of Left Main Bronchus, Via Natural or Artificial Opening Endoscopic, Diagnostic (ICD-10-PCS; 2017-02-19)
PROC: 0BD38ZX Extraction of Right Main Bronchus, Via Natural or Artificial Opening Endoscopic, Diagnostic (ICD-10-PCS; 2017-02-19)
DX: A41.9 Sepsis, unspecified organism (principal); K85.90 Acute pancreatitis without necrosis or infection, unspecified; J96.02 Acute respiratory failure with hypercapnia; G93.41 Metabolic encephalopathy; J96.01 Acute respiratory failure with hypoxia; N17.9 Acute kidney failure, unspecified; J98.11 Atelectasis; J44.1 Chronic obstructive pulmonary disease with (acute) exacerbation; E87.0 Hyperosmolality and hypernatremia; K80.20 Calculus of gallbladder without cholecystitis without obstruction; F10.10 Alcohol abuse, uncomplicated; F17.200 Nicotine dependence, unspecified, uncomplicated; Z89.612 Acquired absence of left leg above knee; I48.2 Chronic atrial fibrillation; Z79.01 Long term (current) use of anticoagulants; I25.10 Atherosclerotic heart disease of native coronary artery without angina pectoris; I10 Essential (primary) hypertension; I08.1 Rheumatic disorders of both mitral and tricuspid valves; I70.219 Atherosclerosis of native arteries of extremities with intermittent claudication, unspecified extremity; Z95.5 Presence of coronary angioplasty implant and graft; Z95.1 Presence of aortocoronary bypass graft